=== PATIENT | male | born 1935 | race Hispanic/Latino ===

== ENCOUNTER 2020-12-14 13:39 | Emergency (ER) | payer OTHER ==
[2020-12-14 16:40] LABS: Absolute Lymphocytes (CBC) 0.8 K/uL (0.7-4.9); Basophils % 0.6 % (0-1.3); Hematocrit 47.9 % (39.6-49.0); MPV 9.7 fL (7.6-11.3); RBC Red Blood Cell Count 5.23 M/uL (4.33-5.43)
[2020-12-14 16:59] LABS: Protime INR 1.2
[2020-12-14 17:02] LABS: Albumin 3.4 g/dL (3.4-5.0); Bilirubin Direct 0.1 mg/dL (0-0.2); Bilirubin Total 0.4 mg/dL (0.2-1.0); Protein, Total 7.9 g/dL (6.4-8.2); Troponin (Emerg Dept Use Only) 0.04 ng/mL (0.0-0.045)
--- NOTE | 2020-12-14 17:02 | RAD REPORT ---
EXAM DESCRIPTION: RAD - Chest Single View - 12/14/2020 4:54 pm CLINICAL HISTORY: Cough;COPD COMPARISON: Single-view chest July 2015 TECHNIQUE: AP portable chest image was obtained 12/14/2020 4:54 pm . FINDINGS: Right lung field is clear of acute disease. Overall lung volumes are low. Lung volumes are specially low on the left. No left-sided mass or consolidation. Retrocardiac left base assessment is limited. Left hemidiaphragm is not sharply defined. Small pleural effusion could be present. Lateral left base assessment on portable imaging is limited in the setting of low lung volumes. Overall hear t size is normal. No acute vascular engorgement. Left costophrenic angle blunting could be portable a rtifact, pleural thickening or minimal pleural effusion. No acute bony abnormality seen. No acute aor tic findings suspected. IMPRESSION: Limited portable study without acute cardiopulmonary finding. Left base assessment is limited. Small effusions and minimal infiltrates cannot be excluded.
[2020-12-14 17:03] LABS: Magnesium 2.5 mg/dL (1.8-2.4); Potassium 4.2 mmol/L (3.5-5.1)
[2020-12-14 17:56] LABS: Urine Blood Negative (Negative); Urine Glucose Negative (Negative); Urine Protein 2+ (Negative); Urine Specific Gravity >=1.030 (1.005-1.030); Urine pH 5.5 (5.0-7.0)
[2020-12-14 18:18] LABS: SARS-COV-2 RT PCR NEGATIVE (NEGATIVE)
[2020-12-14 18:26] LABS: Urine Bacteria <20 /HPF (NONE SEEN); Urine Mucus LIGHT /HPF (NONE SEEN); Urine RBC NONE SEEN /HPF (NONE SEEN)
--- NOTE | 2020-12-14 18:36 | EDPHYS ---
Physician Documentation [facility] Name: Carter Jiang Age: 85 yrs Sex: Male : 1935 Arrival Date: 12/14/2020 Time: 13:44 Bed 5 Private MD: ED Physician Jv Miller HPI: 12/14 16:33 This 85 yrs old Male presents to ER via Wheelchair with complaints of fever, rn generalized weakness.. 16:33 The patient reports fever, not measured (subjective). Onset: The symptoms/episode rn began/occurred yesterday. Modifying factors: there are no obvious modifying factors. Associated signs and symptoms: Pertinent positives: chills, cough, runny nose, Pertinent negatives: abdominal pain, altered mental status, diarrhea, headache, hemoptysis, skin rash, swelling, vomiting. Severity of symptoms: At their worst the symptoms were mild in the emergency department the symptoms are unchanged. The patient has experienced similar episodes in the past. The patient has not recently seen a physician. Reports fever, chills, runny nose, cough. Patient states generalized weakness and fatigue. No sick contacts. Patient states "just old age". No sob. No hemoptysis. No chest pain. No abd pain/vomiting/diarrhea/blood in stool .. Historical: - Allergies: 13:52 No Known Allergies; ll1 - PMHx: 13:52 COPD; ll1 - PSHx: 13:52 prostate Sx; ll1 - Immunization history:: Client reports receiving the 2nd dose of the Covid vaccine, Flu vaccine is up to date. - Social history:: Smoking status: Patient denies any tobacco usage or history of. - Family history:: not pertinent. - Hospitalizations: : No recent hospitalization is reported. 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 Exam: 16:33 Constitutional: This is a well developed, well nourished patient who is awake, alert, rn and in no acute distress. Head/Face: Normocephalic, atraumatic. Eyes: Periorbital areas with no swelling, redness, or edema. ENT: MMM Cardiovascular: Regular rate and rhythm. No pulse deficits. Respiratory: No increased work of breathing, no retractions or nasal flaring. No wheezing. Speaking full sentences, laughing. Abdomen/GI: soft, non-tender Skin: Warm, dry MS/ Extremity: Pulses equal, no cyanosis. Neuro: Awake and alert, GCS 15, oriented to person, place, time, and situation. Cranial nerves II-XII grossly intact. Motor strength 4/5 in all extremities. Sensory grossly intact. Cerebellar exam normal. Vital Signs: 13:52 BP 116 / 70; Pulse 71; Resp 17; Temp 99.8; Pulse Ox 97% ; Weight 78.02 kg; Height 5 ft. ll1 3 in. (160.02 cm); Pain 0/10; 17:33 BP 98 / 82; Pulse 53; Resp 15; Pulse Ox 99% on R/A; hb 18:13 BP 164 / 79; Pulse 52; rn 18:27 BP 164 / 79; Pulse 77; Resp 14; Pulse Ox 98% on R/A; bp 19:30 BP 152 / 71; Pulse 54; Resp 18; Pulse Ox 96% ; wh 13:52 Body Mass Index 30.47 (78.02 kg, 160.02 cm) ll1 MDM: 16:13 Patient medically screened. rn 18:31 Differential diagnosis: viral Infection, bacterial infection, URI, bronchitis, rn pneumonia UTI. Data reviewed: vital signs, nurses notes, lab test result(s), radiologic studies, plain films, and as a result, I will discharge patient. Counseling: I had a detailed discussion with the patient and/or guardian regarding: the historical points, exam findings, and any diagnostic results supporting the discharge/admit diagnosis, lab results, radiology results, the need for outpatient follow up, to return to the emergency department if symptoms worsen or persist or if there are any questions or concerns that arise at home. Response to treatment: the patient's symptoms have mildly improved after treatment, and as a result, I will discharge patient. Special discussion: I discussed with the patient/guardian in detail that at this point there is no indication for admission to the hospital. It is understood, however, that if the symptoms persist or worsen the patient needs to return immediately for re-evaluation. ED course: Pt with neg COVID/FLU, no acute findings on CXR, normal CBC, neg procalcitonin, neg UA, will dc home with abx given fever and COPD with reported change in cough. Return precautions given and understood.. 12/14 16:15 Order name: Basic Metabolic Panel; Complete Time: 17:14 bp 12/14 16:15 Order name: CBC with Diff; Complete Time: 17:03 bp 12/14 16:15 Order name: LFT's; Complete Time: 17:14 bp 12/14 16:15 Order name: Magnesium; Complete Time: 17:14 bp 12/14 16:15 Order name: NT PRO-BNP; Complete Time: 17:14 bp 12/14 16:15 Order name: PT-INR; Complete Time: 17:24 bp 12/14 16:15 Order name: Troponin (emerg Dept Use Only); Complete Time: 17:14 bp 12/14 16:20 Order name: Urine Culture rn 12/14 16:20 Order name: Urine Microscopic Only; Complete Time: 18:27 rn 12/14 16:20 Order name: Blood Culture Adult (2) rn 12/14 16:20 Order name: Procalcitonin; Complete Time: 17:24 rn 12/14 17:56 Order name: Urine Dipstick-Ancillary; Complete Time: 18:11 EDMS 12/14 16:14 Order name: XRAY Chest (1 view); Complete Time: 17:03 rn 12/14 16:15 Order name: EKG; Complete Time: 16:16 bp 12/14 16:15 Order name: Cardiac monitoring; Complete Time: 16:41 bp 12/14 16:15 Order name: EKG - Nurse/Tech; Complete Time: 16:40 bp 12/14 16:15 Order name: IV Saline Lock; Complete Time: 16:16 bp 12/14 16:15 Order name: Labs collected and sent; Complete Time: 16:16 bp 12/14 16:15 Order name: O2 Per Protocol; Complete Time: 16:16 bp 12/14 16:15 Order name: O2 Sat Monitoring; Complete Time: 16:16 bp 12/14 16:20 Order name: Urine Dipstick-Ancillary (obtain specimen); Complete Time: 18:43 rn 12/14 18:18 Order name: COVID-19/FLU A+B; Complete Time: 18:27 EDMS Administered Medications: 18:40 Drug: Rocephin (cefTRIAXone) 1 grams Route: IV; Rate: calculated rate; Site: right bp forearm; 19:45 Follow up: Response: No adverse reaction; IV Status: Completed infusion Disposition: 12/14/20 18:35 Discharged to Home. Impression: Fever, unspecified, Chronic obstructive pulmonary disease, unspecified. - Condition is Stable. - Discharge Instructions: Chronic Obstructive Pulmonary Disease, Fever, Adult. - Prescriptions for Augmentin 875- 125 mg Oral Tablet - take 1 tablet by ORAL route every 12 hours for 10 days; 20 tablet. - Medication Reconciliation Form, Thank You Letter, Antibiotic Education, Prescription Opioid Use form. - Follow up: Private Physician; When: As needed; Reason: Recheck today's complaints, Re-evaluation by your physician. - Problem is new. - Symptoms have improved. Signatures: Dispatcher [employer] EDMS Jv Miller MD MD rn Habalo, Winsy, RN DIXIE Sunny Bassett, RN RN Logan Whitman, RN RN ll1 Corrections: (The following items were deleted from the chart) 17:27 16:14 CORONAVIRUS+MR.LAB.BRZ ordered. EDDC EDDC 17:27 16:14 Influenza Screen (A \\T\\ B)+BA.LAB.BRZ ordered. EDDC EDMS 19:46 18:35 12/14/2020 18:35 Discharged to Home. Impression: Fever, unspecified; Chronic wh obstructive pulmonary disease, unspecified. Condition is Stable. Forms are Medication Reconciliation Form, Thank You Letter, Antibiotic Education, Prescription Opioid Use. Follow up: Private Physician; When: As needed; Reason: Recheck today's complaints, Re-evaluation by your physician. Problem is new. Symptoms have improved. rn
--- NOTE | 2020-12-14 18:36 | ER ---
Nurse's Notes [facility] Name: Carter Jiang Age: 85 yrs Sex: Male : 1935 Arrival Date: 12/14/2020 Time: 13:44 Bed 5 Private MD: Diagnosis: Fever, unspecified;Chronic obstructive pulmonary disease, unspecified Presentation: 12/14 13:52 Chief complaint: Patient states: Chills, SOB, weak, tired easily for 1 day. + low grade ll1 fever. No N/V/D. Coronavirus screen: Client denies travel out of the [place] in the last 14 days. congestion, difficulty breathing, runny nose, Client presents with at least one sign or symptom that may indicate coronavirus-19. Standard/surgical mask placed on the client. Ebola Screen: Patient denies travel to an Ebola-affected area in the 21 days before illness onset. Initial Sepsis Screen: Does the patient meet any 2 criteria? No. Patient's initial sepsis screen is negative. Does the patient have a suspected source of infection? No. Patient's initial sepsis screen is negative. Risk Assessment: Do you want to hurt yourself or someone else? Patient reports no desire to harm self or others. Onset of symptoms was December 14, 2020. 13:52 Method Of Arrival: Wheelchair ll1 13:52 Acuity: GRADY 3 ll1 Triage Assessment: 16:15 General: Appears distressed, uncomfortable, Behavior is cooperative, appropriate for bp age, anxious. Pain: Denies pain. EENT: No deficits noted. Neuro: No deficits noted. Cardiovascular: Rhythm is sinus rhythm. Respiratory: Reports shortness of breath Onset: The symptoms/episode began/occurred 3 days, the patient has moderate shortness of breath. GI: No signs and/or symptoms were reported involving the gastrointestinal system. : No signs and/or symptoms were reported regarding the genitourinary system. Derm: No deficits noted. Musculoskeletal: No deficits noted. Historical: - Allergies: 13:52 No Known Allergies; ll1 - PMHx: 13:52 COPD; ll1 - PSHx: 13:52 prostate Sx; ll1 - Immunization history:: Client reports receiving the 2nd dose of the Covid vaccine, Flu vaccine is up to date. - Social history:: Smoking status: Patient denies any tobacco usage or history of. - Family history:: not pertinent. - Hospitalizations: : No recent hospitalization is reported. Screenin:15 Abuse screen: Denies threats or abuse. Denies injuries from another. Nutritional bp screening: No deficits noted. Tuberculosis screening: No symptoms or risk factors identified. Fall Risk None identified. Assessment: 16:15 General: SEE TRIAGE NOTE. Cardiovascular: Rhythm is sinus rhythm. Respiratory: Airway bp is patent Respiratory effort is labored, Breath sounds with rales bilaterally. 17:15 Reassessment: Patient appears in no apparent distress at this time. Patient and/or hb family updated on plan of care and expected duration. Pain level reassessed. Patient is alert, oriented x 3, equal unlabored respirations, skin warm/dry/pink. 18:27 Reassessment: Patient appears in no apparent distress at this time. Patient and/or bp family updated on plan of care and expected duration. Pain level reassessed. Patient is alert, oriented x 3, equal unlabored respirations, skin warm/dry/pink. 19:15 Reassessment: Patient appears in no apparent distress at this time. Patient and/or wh family updated on plan of care and expected duration. Pain level reassessed. Patient is alert, oriented x 3, equal unlabored respirations, skin warm/dry/pink. Vital Signs: 13:52 BP 116 / 70; Pulse 71; Resp 17; Temp 99.8; Pulse Ox 97% ; Weight 78.02 kg; Height 5 ft. ll1 3 in. (160.02 cm); Pain 0/10; 17:33 BP 98 / 82; Pulse 53; Resp 15; Pulse Ox 99% on R/A; hb 18:13 BP 164 / 79; Pulse 52; rn 18:27 BP 164 / 79; Pulse 77; Resp 14; Pulse Ox 98% on R/A; bp 19:30 BP 152 / 71; Pulse 54; Resp 18; Pulse Ox 96% ; wh 13:52 Body Mass Index 30.47 (78.02 kg, 160.02 cm) ll1 ED Course: 13:44 Patient arrived in ED. bp1 13:52 Arm band placed on. ll1 13:55 Triage completed. ll1 16:04 Sunny Bassett, RN is Primary Nurse. bp 16:09 Patient placed in an exam room, on a stretcher. ll1 16:12 Jv Miller MD is Attending Physician. rn 16:15 Patient has correct armband on for positive identification. Bed in low position. Call bp light in reach. Side rails up X2. 16:20 Inserted saline lock: 20 gauge in right forearm, using aseptic technique. Blood bp collected. 16:41 Warm blanket given. Pillow given. nurse monitoring on. Pulse ox on. NIBP on. [facility] 16:41 EKG done, by ED staff, reviewed by Jv Miller MD. [facility] 16:54 XRAY Chest (1 view) In Process Unspecified. EDMS 19:46 No provider procedures requiring assistance completed. IV discontinued, intact, bleeding controlled, No redness/swelling at site. Administered Medications: 18:40 Drug: Rocephin (cefTRIAXone) 1 grams Route: IV; Rate: calculated rate; Site: right bp forearm; 19:45 Follow up: Response: No adverse reaction; IV Status: Completed infusion Outcome: 18:35 Discharge ordered by MD. rn 19:46 Discharged to home via wheelchair, with family. 19:46 Condition: stable 19:46 Discharge instructions given to patient, family, Instructed on discharge instructions, follow up and referral plans. medication usage, POC Demonstrated understanding of instructions, follow-up care, medications, POC Prescriptions given X 1. 19:46 Patient left the ED. Signatures: Dispatcher [employer] EDMS Jv Miller MD MD rn Baxter, Heather, RN RN hb Martinez, Maria [facility] Nasim Gallegos RN RN Sunny Bassett RN RN bp Lewis, Lynsay, RN RN [facility] Karrie Gan bp1 Corrections: (The following items were deleted from the chart) 17:33 17:33 BP 155 / 82; Pulse 53bpm; Resp 15bpm; Pulse Ox 99% RA; hb hb
[2020-12-14] MEDS ORDERED: CEFTRIAXONE/SWI 1gm 1 GM/10 ML SYR ONE (18:59)
[2020-12-14] MEDS ORDERED: NA CHLORIDE 0.9% 100 ML ONE (18:59)
[2020-12-14 19:53] VITALS: TEMP 99.8
[2020-12-14 19:59] VITALS: BP 152/71; O2SAT 96
--- NOTE | 2020-12-16 12:02 | EKG ---
Test Date: 2020-12-14 Test Time: 16:29:24 Line Leader: AMADOU MEASUREMENT RESULTS: Intervals: Rate: 54 GA: 116 QRSD: 98 QT: 406 QTc: 385 [place]: P: GA: 116 QRS: 64 T: 67 INTERPRETIVE STATEMENTS: Sinus bradycardia Anterior infarct, age undetermined Abnormal ECG Compared to ECG 08/03/2015 17:29:07 Myocardial infarct finding now present Sinus rhythm no longer present Electronically Signed On 12-16-20 11:54:37 CDT by Leandro Aguiar
== END 2020-12-14 19:46 | disposition home or self-care (01) ==
LOC: ER 13:39
DX: J44.9 Chronic obstructive pulmonary disease, unspecified (principal); Z20.822 Contact with and (suspected) exposure to COVID-19
CPT/HCPCS: 96365; 93005; 87040 ×2; 87088; 85025; 87086; 80048; 36415; 83735; 85610; 80076; 84484; 84145; 83880; 0240U; 71045; 99285; J0696; 81003; 81015

== ENCOUNTER 2021-12-21 22:11 | Emergency (ER) | payer BC, OTHER ==
[2021-12-21 23:00] LABS: Absolute Lymphocytes (CBC) 0.5 K/uL (0.7-4.9); Hematocrit 48.9 % (39.6-49.0); Lymphocytes % 4.4 % (15.3-44.8); MPV 8.8 fL (7.6-11.3); RBC Red Blood Cell Count 5.31 M/uL (4.33-5.43)
[2021-12-21 23:17] LABS: Protime INR 1.09
[2021-12-21 23:20] LABS: Potassium 3.9 mmol/L (3.5-5.1); Troponin High Sensitivity 49.4 pg/mL (<58.9)
[2021-12-21] MEDS ORDERED: IPRATROPIUM BROM 0.5MG/2.5ML ONE (23:38)
[2021-12-21] MEDS ORDERED: METHYLPREDNISOLONE 125 MG INJ ONE (23:38)
[2021-12-21] MEDS ORDERED: ALBUTEROL 2.5 MG/3 ML NEB SOL ONE (23:38)
[2021-12-21] MEDS ORDERED: ONDANSETRON 4 MG/2 ML VIAL ONE (23:48)
[2021-12-21] MEDS ORDERED: MORPHINE 2 MG/ML SYR ONE (23:48)
[2021-12-21 23:56] LABS: Arterial Blood Carboxyhemoglob 0.5 % (0-1.5); Blood O2 Saturation 99.5 % (92-98.5)
[2021-12-22] MEDS ORDERED: NA CHLORIDE 0.9% 500 ML ONE (01:06)
[2021-12-22 01:15] LABS: Urine Blood 3+ (Negative); Urine Glucose 1+ (Negative); Urine Protein 2+ (Negative); Urine Specific Gravity >=1.030 (1.005-1.030)
[2021-12-22 01:44] LABS: Albumin 3.7 g/dL (3.4-5.0); Bilirubin Direct 0.5 mg/dL (0-0.2); Bilirubin Total 0.8 mg/dL (0.2-1.0); Protein, Total 7.9 g/dL (6.4-8.2)
--- NOTE | 2021-12-22 05:21 | EDPHYS ---
Physician Documentation [facility] Name: Carter Jiang Age: 86 yrs Sex: Male : 1935 Arrival Date: 12/21/2021 Time: 22:15 Bed 16 Private MD: ED Physician Nii Muñoz HPI: 12/21 23:15 This 86 yrs old Male presents to ER via Ambulatory with complaints of mh7 Abdominal Swelling, Breathing Difficulty. 23:15 The patient presents with abdominal pain in the left upper quadrant. Onset: The mh7 symptoms/episode began/occurred this morning, today. 23:15 The symptoms do not radiate. mh7 23:15 Associated signs and symptoms: Pertinent positives: shortness of breath, Pertinent mh7 negatives: nausea, vomiting, and diarrhea, chest pain, constipation, diarrhea, dysuria, fever, headache, hematuria, palpitations, testicular pain, vomiting, vomiting blood. The symptoms are described as intermittent, vague, waxing/waning. Modifying factors: The symptoms are alleviated by nothing, the symptoms are aggravated by nothing. 23:15 Severity of pain: At its worst the pain was moderate today, in the emergency department mh7 the pain is unchanged. Historical: - Allergies: 22:22 No Known Allergies; jb4 - PMHx: 22:22 COPD; jb4 - PSHx: 22:22 prostate; jb4 - Immunization history:: Adult Immunizations up to date. - Social history:: Smoking status: Patient denies any tobacco usage or history of. ROS: 23:15 Constitutional: Negative for fever, chills, and weight loss, Eyes: Negative for injury, mh7 pain, redness, and discharge, ENT: Negative for injury, pain, and discharge, Neck: Negative for injury, pain, and swelling, Cardiovascular: Negative for chest pain, palpitations, and edema, Back: Negative for injury and pain, : Negative for injury, bleeding, discharge, and swelling, MS/Extremity: Negative for injury and deformity, Skin: Negative for injury, rash, and discoloration, Neuro: Negative for headache, weakness, numbness, tingling, and seizure, Psych: Negative for depression, anxiety, suicide ideation, homicidal ideation, and hallucinations, Allergy/Immunology: Negative for hives, rash, and allergies, Endocrine: Negative for neck swelling, polydipsia, polyuria, polyphagia, and marked weight changes, Hematologic/Lymphatic: Negative for swollen nodes, abnormal bleeding, and unusual bruising. Exam: 23:15 Head/Face: Normocephalic, atraumatic. Eyes: Pupils equal round and reactive to light, mh7 extra-ocular motions intact. Lids and lashes normal. Conjunctiva and sclera are non-icteric and not injected. Cornea within normal limits. Periorbital areas with no swelling, redness, or edema. Neck: Trachea midline, no thyromegaly or masses palpated, and no cervical lymphadenopathy. Supple, full range of motion without nuchal rigidity, or vertebral point tenderness. No Meningismus. Chest/axilla: Normal chest wall appearance and motion. Nontender with no deformity. No lesions are appreciated. Cardiovascular: Regular rate and rhythm with a normal S1 and S2. No gallops, murmurs, or rubs. Normal PMI, no JVD. No pulse deficits. 23:15 Back: No spinal tenderness. No costovertebral tenderness. Full range of motion. Skin: Warm, dry with normal turgor. Normal color with no rashes, no lesions, and no evidence of cellulitis. MS/ Extremity: Pulses equal, no cyanosis. Neurovascular intact. Full, normal range of motion. Neuro: Awake and alert, GCS 15, oriented to person, place, time, and situation. Cranial nerves II-XII grossly intact. Motor strength 5/5 in all extremities. Sensory grossly intact. Cerebellar exam normal. Normal gait. Psych: Awake, alert, with orientation to person, place and time. Behavior, mood, and affect are within normal limits. 23:15 Constitutional: The patient appears alert, awake, anxious, uncomfortable. 23:15 Respiratory: mild respiratory distress is noted, Respirations: prolonged exhalation, that is mild, Breath sounds: rhonchi, that are mild, are scattered. 23:15 Abdomen/GI: Inspection: abdomen appears normal, Bowel sounds: normal, in all quadrants, Palpation: moderate abdominal tenderness, in the left upper quadrant, mass, is not appreciated, rebound tenderness, is not appreciated, voluntary guarding, is not appreciated, involuntary guarding, is not appreciated, no appreciated organomegaly, Indicators: McBurney's point is not tender, De La Fuente's sign is negative, Rovsing's sign is negative, Obturator sign is negative, Psoas sign is negative, Liver: no appreciated palpable abnormalities, Hernia: not appreciated. Vital Signs: 22:19 BP 186 / 79; Pulse 63; Resp 28; Temp 97.5; Pulse Ox 98% on R/A; Weight 74.84 kg (R); jb4 Height 5 ft. 3 in. (160.02 cm); Pain 5/10; 12/22 00:00 BP 162 / 78; Pulse 102; Resp 28; Pulse Ox 99% on 50% BiPAP; lp1 01:00 BP 130 / 63; Pulse 77; Resp 25; Pulse Ox 99% on 50% BiPAP; lp1 01:30 BP 140 / 67; Pulse 74; Resp 23; Pulse Ox 98% on 50% BiPAP; lp1 02:15 BP 135 / 67; Pulse 68; Resp 26; Pulse Ox 99% on 2 lpm NC; lp1 03:00 BP 125 / 59; Pulse 66; Resp 14; Pulse Ox 100% on 2 lpm NC; lp1 03:51 BP 137 / 67; Pulse 66; Resp 14; Pulse Ox 98% on 2 lpm NC; lp1 05:00 BP 137 / 69; Pulse 66; Resp 14; Pulse Ox 97% on 2 lpm NC; lp1 06:18 BP 155 / 78; Pulse 68; Resp 22; Temp 98.1(O); Pulse Ox 99% on 2 lpm NC; Pain 0/10; lp1 06/07 22:19 Body Mass Index 29.23 (74.84 kg, 160.02 cm) jb4 MDM: 05:17 Differential diagnosis: bowel obstruction, coronary artery disease, cholecystitis, mh7 Cholelithiasis, diverticulitis, gastritis, gastroesophageal reflux disease, non-specific abd pain, pancreatitis, Peptic Ulcer Disease, Ureterolithiasis, urinary tract infection. Data reviewed: vital signs, nurses notes, lab test result(s), CBC, electrolytes, EKG, radiologic studies, CT scan, plain films, ultrasound. Data interpreted: Pulse oximetry: on room air is 98 %. Interpretation: normal. Counseling: I had a detailed discussion with the patient and/or guardian regarding: the historical points, exam findings, and any diagnostic results supporting the discharge/admit diagnosis, the presence of at least one elevated blood pressure reading (>120/80) during this emergency department visit, lab results, radiology results, the need to transfer to another facility, [facility] does not immediately have the required specialist. Response to treatment: the patient's symptoms have mildly improved after treatment. 05:20 Patient medically screened. [facility] 05:20 ED course: Feels better, NAD, VSS, no focal neurological deficits. Still has 7 intermittent abdominal pain worse with palpation. No SOB, chest pain, vomiting, diarrhea. Discussed test results with pancreatitis and gallstones. Recommended transfer to another hospital since crop consultant GI doctor does not do ERCP procedure. They are agreeable with plan and okay with trying for [facility].. 12/21 22:33 Order name: Basic Metabolic Panel; Complete Time: 23:22 [facility] 12/21 22:33 Order name: CBC with Diff; Complete Time: 23:21 [facility] 12/21 22:33 Order name: Troponin HS; Complete Time: 23:22 [facility] 12/21 22:34 Order name: PT-INR; Complete Time: 23:21 [facility] 12/21 22:34 Order name: Ptt, Activated; Complete Time: 23:21 [facility] 12/21 23:20 Order name: Lipase; Complete Time: 01:05 [facility] 12/21 22:33 Order name: XRAY Chest (1 view) [facility] 12/21 23:21 Order name: COVID-19 SARS RT PCR (Document "Date of Onset" if Symptomatic); Complete [facility] Time: 03:07 12/21 23:21 Order name: Influenza Screen (a \\T\\ B); Complete Time: 03:07 [facility] 12/21 23:24 Order name: CT Abd/Pelvis - Without Contrast [facility] 12/21 23:32 Order name: Arterial Blood Gas; Complete Time: 00:05 [facility] 12/22 01:06 Order name: LFT's; Complete Time: 03:07 [facility] 12/22 01:15 Order name: Urine Dipstick-Ancillary; Complete Time: 03:07 [facility] 12/22 03:15 Order name: Amylase, Serum; Complete Time: 03:50 [facility] 12/21 22:33 Order name: EKG; Complete Time: 22:36 [facility] 12/21 22:33 Order name: Cardiac monitoring; Complete Time: 22:34 [facility] 12/21 22:33 Order name: EKG - Nurse/Tech; Complete Time: 22:50 [facility] 12/21 22:33 Order name: IV Saline Lock; Complete Time: 22:50 [facility] 12/21 22:33 Order name: Labs collected and sent; Complete Time: 22:50 [facility] 12/21 22:33 Order name: O2 Per Protocol; Complete Time: 22:33 [facility] 12/21 22:33 Order name: O2 Sat Monitoring; Complete Time: 22:33 [facility] 12/21 23:25 Order name: Urine Dipstick-Ancillary (obtain specimen); Complete Time: 01:16 [facility] 12/22 03:10 Order name: US Abdomen Limited 7 Administered Medications: 12/21 23:30 Drug: Albuterol 2.5 mg Route: Inhalation; [facility] 23:30 Drug: AtroVENT (ipratropium) Aerosol 0.5 mg Route: Inhalation; 1 23:30 Drug: SOLU-Medrol (methylPrednisoLONE) 125 mg Route: IVP; Site: left forearm; 1 12/22 00:58 Follow up: Response: No adverse reaction [facility] 12/21 23:35 Drug: Albuterol 2.5 mg {Note: in BiPAP.} Route: Inhalation; lp1 23:40 Drug: Albuterol 2.5 mg {Note: in BiPAP.} Route: Inhalation; 1 23:45 Drug: morphine 2 mg Route: IVP; Infused Over: 4 mins; Site: left forearm; 1 12/22 00:58 Follow up: Response: No adverse reaction [facility] 12/21 23:45 Drug: Zofran (Ondansetron) 4 mg Route: IVP; Site: left forearm; lp1 12/22 00:58 Follow up: Response: No adverse reaction lp1 01:00 Drug: NS 0.9% 500 ml Route: IV; Rate: bolus; Site: left forearm; lp1 03:00 Follow up: IV Status: Completed infusion; IV Intake: 500ml 1 Disposition Summary: 12/22/21 05:20 Transfer Ordered Transfer Location: [place] [address] Reason: Higher level of care mh7 Condition: Stable mh7 Problem: new mh7 Symptoms: have improved mh7 Accepting Physician: Dr. Juarez(06/08/22 07:02) lp1 Diagnosis - Acute Pancreatitis, Cholelithiasis [facility] Forms: - Medication Reconciliation Form [facility] - SBAR form [facility] Signatures: Dispatcher [employer] Camila Lechuga RN RN lp1 Sacha Chavis, [employer] [employer]Cla1 Aleksander Corley RN RN jb4 Nii Muñoz MD MD 7 Corrections: (The following items were deleted from the chart) 07:02 05:20 Dr. Juarez [facility] lp1
--- NOTE | 2021-12-22 05:21 | ER ---
Nurse's Notes [facility] Name: Carter Jiang Age: 86 yrs Sex: Male : 1935 Arrival Date: 12/21/2021 Time: 22:15 Bed 16 Private MD: Diagnosis: Acute Pancreatitis, Cholelithiasis Presentation: 12/21 22:19 Chief complaint: Patient's son or daughter states: He has a pulsating pain under his jb4 left breast and it started swelling. It started this morning and got worse. SOB started [employer] REPA[employer]. Coronavirus screen: At this time, the client does not indicate any symptoms associated with coronavirus-19. Ebola Screen: No symptoms or risks identified at this time. Initial Sepsis Screen: Does the patient meet any 2 criteria? RR > 20 per min. Yes Does the patient have a suspected source of infection? Yes: Acute abdominal pain. Risk Assessment: Do you want to hurt yourself or someone else? Patient reports no desire to harm self or others. Onset of symptoms was December 21, 2021. Transition of care: patient was not received from another setting of care. 22:19 Method Of Arrival: Ambulatory jb4 22:19 Acuity: GRADY 2 jb4 Historical: - Allergies: 22:22 No Known Allergies; jb4 - PMHx: 22:22 COPD; jb4 - PSHx: 22:22 prostate; jb4 - Immunization history:: Adult Immunizations up to date. - Social history:: Smoking status: Patient denies any tobacco usage or history of. Screenin:00 Abuse screen: Denies threats or abuse. Denies injuries from another. Nutritional lp1 screening: No deficits noted. Tuberculosis screening: No symptoms or risk factors identified. Fall Risk Total Gonzalez Fall Scale indicates High Risk Score (45 or more points). Fall prevention measures have been instituted. Side Rails Up X 2 Family Present and informed to notify staff if the need to leave the bedside As available patient and family educated on Fall Prevention Program and Strategies. Assessment: 22:50 General: Appears in no apparent distress. Behavior is calm, cooperative. Pain: lp1 Complains of pain in left upper quadrant Pain currently is 5 out of 10 on a pain scale. Quality of pain is described as aching. Neuro: Level of Consciousness is awake, alert, obeys commands, Oriented to person, place, situation. Cardiovascular: Patient's skin is warm and dry. Respiratory: Respiratory effort is even, Breath sounds are diminished in left posterior lower lobe and right posterior lower lobe. GI: Abdomen is non-distended, Bowel sounds present X 4 quads. Abdomen is tender to palpation in left upper quadrant. : No signs and/or symptoms were reported regarding the genitourinary system. EENT: No signs and/or symptoms were reported regarding the EENT system. Derm: Skin is intact, Skin is dry, Skin is normal. Musculoskeletal: No deficits noted. 23:20 Reassessment: Patient reports feeling short of breath, sitting at side of bed, lp1 tachypneic; O2 at 93% on RA, RR 40; Placed on NC at 2L O2; Patient becoming more anxious; Staff Assist called for RT. 23:20 Respiratory: Breath sounds are diminished in left posterior lower lobe. lp1 23:30 Reassessment: RT at bedside to place BiPAP at 100% O2; Dr. Muñoz at bedside. lp1 23:45 Reassessment: Patient appears to be improving, RR 27, O2 at 50% on BiPAP, 100% O2. lp1 06/ 00:30 Reassessment: Patient appears anxious with BiPAP in place, patient educated on keeping lp1 BiPAP in place, at bedside; RR decreased to 24, O2 at 99% on 50% O2 Patient states symptoms have improved. 01:16 Reassessment: Patient appears comfortable at this time, at bedside; aware of need lp1 for CT Patient states feeling better. Patient states symptoms have improved. 01:50 Reassessment: Nurse transported patient to CT via stretcher on NC at 2L O2, tolerating lp1 well. 02:00 Reassessment: Patient is alert, oriented x 3, equal unlabored respirations, skin lp1 warm/dry/pink. Patient returned from CT, tolerating nasal cannula, continued on 2L O2 Patient denies pain at this time. Patient states feeling better. 03:15 Reassessment: Patient appears in no apparent distress at this time. No changes from lp1 previously documented assessment. Aware of waiting for CT results; at bedside. 04:20 Reassessment: Dr. Muñoz at bedside to discuss results and plan of care with patient lp1 and . 05:30 Reassessment: Patient appears in no apparent distress at this time. Awaiting approval lp1 from transfer facility. 06:15 Reassessment: Patient signed consent for transfer, at bedside. lp1 06:27 Reassessment: Report given to DIXIE Jennings for patient transfer to [facility] bed 918. lp1 07:01 Reassessment: [facility] at bedside for transfer. lp1 Vital Signs: 12/21 22:19 BP 186 / 79; Pulse 63; Resp 28; Temp 97.5; Pulse Ox 98% on R/A; Weight 74.84 kg (R); jb4 Height 5 ft. 3 in. (160.02 cm); Pain 5/10; 12/22 00:00 BP 162 / 78; Pulse 102; Resp 28; Pulse Ox 99% on 50% BiPAP; lp1 01:00 BP 130 / 63; Pulse 77; Resp 25; Pulse Ox 99% on 50% BiPAP; lp1 01:30 BP 140 / 67; Pulse 74; Resp 23; Pulse Ox 98% on 50% BiPAP; lp1 02:15 BP 135 / 67; Pulse 68; Resp 26; Pulse Ox 99% on 2 lpm NC; lp1 03:00 BP 125 / 59; Pulse 66; Resp 14; Pulse Ox 100% on 2 lpm NC; lp1 03:51 BP 137 / 67; Pulse 66; Resp 14; Pulse Ox 98% on 2 lpm NC; lp1 05:00 BP 137 / 69; Pulse 66; Resp 14; Pulse Ox 97% on 2 lpm NC; lp1 06:18 BP 155 / 78; Pulse 68; Resp 22; Temp 98.1(O); Pulse Ox 99% on 2 lpm NC; Pain 0/10; lp1 /07 22:19 Body Mass Index 29.23 (74.84 kg, 160.02 cm) jb4 ED Course: 12/21 22:15 Patient arrived in ED. bp1 22:22 Triage completed. jb4 22:22 Arm band placed on right wrist. jb4 22:35 Nii Muñoz MD is Attending Physician. mh7 22:45 Initial lab(s) drawn, by wy, sent to lab. Inserted saline lock: 18 gauge in left jb4 forearm, using aseptic technique. Blood collected. 22:55 XRAY Chest (1 view) In Process Unspecified. EDMS 23:00 Patient has correct armband on for positive identification. Placed in gown. Bed in low lp1 position. Call light in reach. Client placed on continuous cardiac and pulse oximetry monitoring. NIBP monitoring applied. 23:31 Camila Staton, RN is Primary Nurse. lp1 12/22 00:42 COVID swab sent to lab. Flu and/or RSV swab sent to lab. lp1 02:04 CT Abd/Pelvis - Without Contrast In Process Unspecified. EDMS 03:14 No provider procedures requiring assistance completed. lp1 03:45 Notified ED physician of a critical lab result(s). Amylase 267. lp1 03:47 US Abdomen Limited In Process Unspecified. EDMS 04:39 initiated a transfer with Neelam from [facility]. 2 05:[address] Muñoz with Dr. Juarez from [facility]. 2 05:47 administrative approval given by Neelam Ramos/ patient has been accepted to [address]/ Dr. Juarez accepted the patient in transfer/report to be called to [phone]. 07:02 Patient transferred, IV remains in place. lp1 Administered Medications: 12/21 23:30 Drug: Albuterol 2.5 mg Route: Inhalation; lp1 23:30 Drug: AtroVENT (ipratropium) Aerosol 0.5 mg Route: Inhalation; lp1 23:30 Drug: SOLU-Medrol (methylPrednisoLONE) 125 mg Route: IVP; Site: left forearm; lp1 12/22 00:58 Follow up: Response: No adverse reaction lp1 12/21 23:35 Drug: Albuterol 2.5 mg {Note: in BiPAP.} Route: Inhalation; lp1 23:40 Drug: Albuterol 2.5 mg {Note: in BiPAP.} Route: Inhalation; lp1 23:45 Drug: morphine 2 mg Route: IVP; Infused Over: 4 mins; Site: left forearm; lp1 12/22 00:58 Follow up: Response: No adverse reaction lp1 12/21 23:45 Drug: Zofran (Ondansetron) 4 mg Route: IVP; Site: left forearm; lp1 12/22 00:58 Follow up: Response: No adverse reaction lp1 01:00 Drug: NS 0.9% 500 ml Route: IV; Rate: bolus; Site: left forearm; lp1 03:00 Follow up: IV Status: Completed infusion; IV Intake: 500ml lp1 Medication: 12/21 23:57 VIS not applicable for this client. lp1 Intake: 12/22 03:00 IV: 500ml; Total: 500ml. lp1 Output: 07:01 Urine: 450ml (Voided); Total: 450ml. lp1 Outcome: 05:20 ER care complete, transfer ordered by . spenser 06:19 Condition: stable lp1 06:19 Instructed on the need for transfer. 07:02 Transferred by ground EMS to [facility], Transfer form completed. lp1 X-rays sent w/ patient. 07:02 Patient left the ED. lp1 Signatures: Dispatcher [employer] EDMS Camila Staton RN RN lp1 Aleksander Corley RN RN jb4 Rhett Mortensen 2 Karrie Gan Maurice, MD MD 7 Corrections: (The following items were deleted from the chart) 00:00 07 23:20 Reassessment: Patient reports feeling short of breath, sitting at side of lp1 bed, tachypneic; O2 at 93% on RA; Placed on NC at 2L O2; Patient becoming more anxious; Staff Assist called for RT lp1 12/22 01:31 12/21 23:20 Reassessment: Patient reports feeling short of breath, sitting at side of lp1 bed, tachypneic; O2 at 93% on RA, RR 40; Placed on NC at 2L O2; Patient becoming more anxious; Staff Assist called for RT lp1 12/22 06:19 06:18 BP 155 / 78; Pulse 68bpm; Resp 22bpm; Pulse Ox 99% 2 lpm Nasal Cannula; Temp lp1 98.1F Oral; lp1
[2021-12-22 07:28] VITALS: BP 155/78; TEMP 98.1; O2SAT 99
--- NOTE | 2021-12-22 07:53 | EKG ---
Test Date: 2021-12-21 Test Time: 22:36:04 Jukebox Operator: MEASUREMENT RESULTS: Intervals: Rate: 65 CT: 142 QRSD: 96 QT: 406 QTc: 422 [place]: P: 246 CT: 142 QRS: 97 T: 34 INTERPRETIVE STATEMENTS: Unusual P axis, possible ectopic atrial rhythm Rightward axis Septal infarct, age undetermined Abnormal ECG Compared to ECG 12/14/2020 16:29:24 Right-axis deviation now present Sinus bradycardia no longer present Myocardial infarct finding still present Electronically Signed On 12-22-21 07:52:24 CDT by Leandro Aguiar
--- NOTE | 2021-12-22 12:33 | RAD REPORT ---
EXAM DESCRIPTION: XR CHEST 1 VIEW CLINICAL HISTORY: CHEST PAIN COMPARISON: None. TECHNIQUE: XR CHEST 1 VIEW 12/21/2021 10:33 PM CDT FINDINGS: Cardiac silhouette is normal in size. There is platelike atelectasis in the mid left lung. There is no pleural effusion. There is no pneumothorax. There are no acute osseous findings. IMPRESSION: No definite pneumonia. Electronically signed by: Andrez Mckeon MD 12/22/2021 12:21 AM CDT Due to temporary technical issues with the PACS/Fluency reporting system, reports are being signed by the in house radiologist without review as a courtesy to ensure prompt reporting. The interpreting r adiologist is fully responsible for the content of the report.
--- NOTE | 2021-12-22 12:42 | RAD REPORT ---
EXAM DESCRIPTION: Abdomen Pelvis Wo Contrast 12/22/2021 2:17 AM CDT CLINICAL HISTORY: 86 years, Male, LUQ abdominal pain COMPARISON: None. TECHNIQUE: Multiple transaxial tomograms of the abdomen and pelvis were performed from the lung base s to the symphysis pubis 5 mm slice thickness at 5 mm interval reconstruction, without administration of IV and oral contrast. Multiplanar reformats in the sagittal and coronal plane were generated and reviewed. This exam was performed according to our departmental dose-optimization protocol, which includes auto mated exposure control, adjustment of the mA and/or kV according to patient size and/or use of iterat wellington reconstruction technique. FINDINGS: The lack of IV and oral contrast limits evaluation of solid organs, subtle lesions cannot be excluded. The lung bases demonstrate to be clear. Mild elevation of the left hemidiaphragm. Grossly the unopacified liver demonstrated presence of a subcapsular right hepatic lobe cyst measurin g 3.3 x 2.7 cm on image 23. Hepatic calcifications. Otherwise the liver pancreas, spleen and adrenal glands demonstrate to be within normal limits, no significant focal lesions were identified. The gallbladder demonstrated presence of layering high density material corresponding to cholelithias is with no significant inflammatory changes/or biliary duct dilatation. The kidneys demonstrate grossly unremarkable. There is no evidence for nephrolithiasis and/or hydro nephrosis. No focal masses were demonstrated. The ureters displays normal appearance with normal caliber, no hydroureter was seen. Grossly the unopacified stomach, small bowel and large bowel demonstrate to be within normal limits. There is no evidence for bowel dilatation/or free air. The appendix is normal there is minimal divert iculosis within the left site colon. The urinary bladder demonstrate to be within normal limits. The prostate gland is enlarged measuring 6.2 x 5.9 cm. The aorta demonstrate minimal atherosclerotic disease extending into the aortic bifurca tion. There is no retroperitoneal lymphadenopathy. There is no evidence for ascites. The bone win dows demonstrate minimal degenerative changes at L3-S1. IMPRESSION: No evidence for nephrolithiasis and/or hydronephrosis. Cholelithiasis with no significant inflammatory changes. Enlarged prostate gland. Right hepatic lobe cyst. Electronically signed by: Memo Carrizales MD 12/22/2021 2:20 AM CDT Due to temporary technical issues with the PACS/Fluency reporting system, reports are being signed by the in house radiologist without review as a courtesy to ensure prompt reporting. The interpreting r adiologist is fully responsible for the content of the report.
--- NOTE | 2021-12-22 12:47 | RAD REPORT ---
EXAM DESCRIPTION: Abdomen Exam Limited 12/22/2021 3:58 AM CDT CLINICAL HISTORY: 86 years, Male, RUQ COMPARISON: None. TECHNIQUE: Utilizing a curved array transducer, real-time ultrasound evaluation of the abdominal vis cera was performed. Color Doppler imaging was used to assess vascular flow. FINDINGS: The liver demonstrate to be within normal limits. The gallbladder demonstrate the presence of multiple layering echogenic structure with posterior shad owing corresponding to small cholelithiasis. There is mild gallbladder wall thickening. There is no p ericholecystic fluid. There is negative ultrasonographic De La Fuente sign. The common bile duct measures 3.6 mm. No intra or extrahepatic biliary duct dilatation was identified. IMPRESSION: Cholelithiasis and gallbladder wall thickening. Ultrasonographic De La Fuente sign. If concern HIDA scan could be of assistance Electronically signed by: Memo Carrizales MD 12/22/2021 4:00 AM CDT Due to temporary technical issues with the PACS/Fluency reporting system, reports are being signed by the in house radiologist without review as a courtesy to ensure prompt reporting. The interpreting r adiologist is fully responsible for the content of the report.
== END 2021-12-22 07:02 | disposition short-term general hospital (02) ==
LOC: ER 22:11
DX: K85.90 Acute pancreatitis without necrosis or infection, unspecified (principal); K80.20 Calculus of gallbladder without cholecystitis without obstruction; J44.9 Chronic obstructive pulmonary disease, unspecified; Z20.822 Contact with and (suspected) exposure to COVID-19
CPT/HCPCS: 93005; 85025; 80048; 36415; 82150; 85610; 80076; 85730; 81003; 84484; 83690; 87804 ×2; 74176; 71045; 76705; 82805; 94660; U0003; J2270; J7040; J2930; J2405

== ENCOUNTER 2022-09-27 09:24 | Emergency (ER) | payer OTHER ==
--- OUTSIDE RECORDS SUMMARY | 2022-09-27 09:28 | XMS REPORT | Continuity of Care Document ---
:1935 Author Organization [facility] t Address [address] [place] [address]. [address] [place] [address] Care Team Providers Name Role Phone SHARLENE KELLOGG Attending Clinician Unavailable Ann BURNS, Linda Wiley Attending Clinician Sharlene Kellogg MD Attending Clinician Karen BURNS, Sri Attending Clinician Reji BURNS, Eliazar Lopes Attending Clinician Shanna BURNS, Celena Muñoz Attending Clinician Unavailable LINDA DIAZ Attending Clinician Unavailable SRI JONES Admitting Clinician Unavailable Payers Payer Name Policy Type Policy Number Effective Date Expiration Date S dimitry [employer]ET[employer] MEDICARE HMO [id number] 2017 POS 00:00:00 Problems Condition Condition Condition Status Onset Resolution Last Treating Co mments Source Name Details Category Date Date Treatment Clinician Date Abdominal Abdominal Disease [facility] Allergies, Adverse Reactions, Alerts Allergy Allergy Status Severity Reaction(s) Onset Inactive Treating Comm ents Source Name Type Date Date Clinician NO KNOWN Allergy Active [facility] Social History Social Habit Start Date Stop Date Quantity Comments Source History [facility]Med [facility] History [facility] 2021-12-22 2021-12-[address] [facility] Transport Med 00:00:00 00:00:[address] [facility] 2021-12-22 2021-12-[address] [facility] Housing Unable to 00:00:00 00:00:00 Medical Center Pay History [facility] 2021-12-22 2021-12-[address] [facility] Housing Places 00:00:00 00:00:00 Medical Ce nter Lived History [facility] 2021-12-22 2021-12-[address] [facility] Housing Homeless 00:00:00 00:00:00 Medical Center Last Year Tobacco Comment 2021-12-22 2021-12-[address] [facility] 00:[facility]:00 00:00:00 diagnosed with Medical Ce nter COPD Tobacco use and 2021-12-22 2021-12-[address] [facility] exposure 00:00:00 00:00:00 Medical Center History of tobacco 1999-07-[address] [facility] Sex Assigned At [address] [facility] 00:00[facility]00 00[facility]00 Medical Center Smoking Status Start Date Stop Date Source Former smoker 2021-12-22 00:00:00 2021-12-22 00:00:00 [facility] Medications Ordered Filled Start Stop Current Ordering Indication Dosage Frequency Signature Comments Components Source Medication Medication Date Date Medication? Clinician (SIG) Name Name amLODIPine 2022- No 5mg QD Take [address] (NORVASC) 5 6-11 06-11 tablet (5 [facility] MG tablet 00:00: 23:59 mg total) Me dical 00 :00 by mouth Center daily. finasteride Yes 5mg QD Take [address] (PROSCAR) 5 6-10 by mouth Luke s mg tablet 16:50: daily. Medica l 08 [facility] albuterol Yes 1{puff} Inhale [address] HFA 6-10 puff by [facility] (VENTOLIN 16:50: mouth via Med ical HFA) 90 08 inhaler Center mcg/actuati every 6 on inhaler (six) hours as needed for Wheezing. saw Yes 450mg [id number] Take [address] [place] 6-10 [id number] mg by Luke s 160 MG 16:50: 3D mouth 3 Medical capsule 08 (three) Center times daily. omega-3 Yes 1200mg QD Take 1,[address] fatty 6-10 mg by [facility] acids-fish 16:50: mouth Medica l oil 08 daily. Center 340-1,000 mg Cap per capsule ascorbic Yes 500mg QD Take [address] acid, 6-10 mg by [employer] vitamin C, 16:50: mouth Medica l (ascorbic 08 daily. [facility] acid with oneal hips) 500 MG tablet cholecalcif Yes [id number] QD Take [facility] 6-10 10,000 [facility] (VITAMIN 16:50: Units by Medic al D3) 10 mcg 08 mouth Center (400 unit) daily. Tab tablet lactobacill Yes 1{tbl} QD Take [address] us acidoph 6-10 tablet by Luke s & bulgar-S. 16:50: mouth Medic al thermophilu 08 daily. Center s (BACID) 1 billion cell- 250 mg Tab per tablet glucosamine Yes 1{tbl} QD Take [address] -chondroiti 6-10 tablet by Lori es n 500-400 16:50: mouth Medical mg tablet 08 daily. Center aspirin 81 Yes 81mg QD Take [address] MG chewable 6-10 by mouth Luke s tablet 16:50: daily. Medical 08 Center cyanocobala Yes 100ug QD Take [address] min, 6-10 mcg by [facility] vitamin 16:50: mouth Medical B-12, 08 daily. [facility] (vitamin B-12) 100 MCG tablet cholecalcif 2021- No 1000U QD Take 1,[address] [facility], 6-10 06-10 Units by [employer] vitamin D3, 13:38: 00:00 mouth Medi francesca 25 mcg 46 :00 daily. [facility] (1,000 unit) capsule predniSONE 2021- No 10mg Take [address] (DELTASONE) 6-10 06-10 by mouth Lori es 10 MG 13:38: 00:00 daily as Medical tablet 24 :00 needed. Center Vital Signs Vital Name Observation Time Observation Value Comments Source HEIGHT 2021-12-22 10:00:00 160 cm WEIGHT 2021-12-22 10:00:00 71.124 kg HEIGHT 2021-12-22 10:00:00 160 cm WEIGHT 2021-12-22 10:00:00 71.124 kg HEIGHT 2021-12-22 10:00:00 160 cm WEIGHT 2021-12-22 10:00:00 71.124 kg Systolic blood 2021-12-24 10:34:00 135 mm[Hg] [facility] Diastolic blood 2021-12-24 10:34:00 60 mm[Hg] [facility] Heart rate 2021-12-24 10:34:00 53 /min [facility] Body temperature 2021-12-24 10:34:00 36 Shnaa [facility] Respiratory rate 2021-12-24 10:34:00 18 /min [facility] Oxygen saturation in 2021-12-24 10:34:00 96 /min [facility] Arterial blood by Medical Ce nter Pulse oximetry Body height 2021-12-22 10:00:00 160 cm [facility] Body weight 2021-12-22 10:00:00 71.124 kg [facility] BMI 2021-12-22 10:00:00 27.78 kg/m2 [facility] Procedures Procedure Date / Time Performing Clinician Source Performed CBC W/PLT COUNT & AUTO 2021-12-24 14:12:00 Valdez, [facility] COMPREHENSIVE METABOLIC 2021-12-24 14:12:00 Valdez, [facility] CBC W/PLT COUNT & AUTO 2021-12-24 14:12:00 Valdez, [facility] POCT-GLUCOSE METER 2021-12-24 10:36:00 Valdez, [place] [facility] POCT-GLUCOSE METER 2021-12-24 07:00:00 Valdez, [place] [facility] POCT-GLUCOSE METER 2021-12-23 20:16:00 Valdez, [place] [facility] REPORT OF PROCEDURE - 2021-12-23 15:16:29 Eliazar Mendoza [facility], I [facility] ENDOSCOPY [facility] POCT-GLUCOSE METER 2021-12-23 12:38:00 Sharlene Kellogg [facility] [place] ERCP 2021-12-23 10:48:[address] [facility] ERCP, WITH BALLOON SWEEP 2021-12-23 10:13:00 Mendoza, [facility] OF BILE DUCTS [facility] PROCEDURE W/ C-ARM 2021-12-23 10:13:00 Reji [facility] ERCP, WITH CHOLANGIOSCOPY 2021-12-23 10:13:00 Reji [facility] ERCP, WITH SPHINCTEROTOMY 2021-12-23 10:13:00 Mendoza [facility] COMPREHENSIVE METABOLIC 2021-12-23 05:21:[address] [facility] LIPASE 2021-12-23 05:21:00 [facility] HEMOGLOBIN A1C 2021-12-23 05:21:00 [facility] CBC (HEMOGRAM ONLY) 2021-12-23 05:21:[address] [facility] POCT-GLUCOSE METER 2021-12-22 21:52:00 Ann [facility] POCT-GLUCOSE METER 2021-12-22 18:04:00 [facility] XR CHEST 1 VIEW PORTABLE 2021-12-22 17:19:[address] Sri Jones [facility] SARS-COV2/RT-PCR ([facility] & 2021-12-22 14:19:00 Jorge Berman [facility] REF LABS) [facility] POCT-GLUCOSE METER 2021-12-22 08:24:00 [facility] Plan of Care Planned Activity Planned Date Details Comments Source Future Scheduled 2022-12-[address] [facility] Test 00:00:00 Counseling and Medical Cente r Screening (12+) [code = Tobacco Cessation Counseling and Screening (12+)] Future Scheduled 2022-07-[address] [facility] Test 00:00:00 (12+) [code = Medical Center DEPRESSION SCREENING (12+)] Future Scheduled 2022-07-17 FALLS RISK SCREENING [facility] Test 00:00:00 [code = FALLS RISK Medical C enter SCREENING] Future Scheduled 2022-03-17 INFLUENZA VACCINE (#1) [facility] 00:00:00 [code = INFLUENZA Medical Ce nter VACCINE (#1)] Future Scheduled 1994-05-[address] [facility] Test 00:00:00 WELLNESS (YEAR 2 or Medical Center FIRST YEAR if no IPPE) [code = MEDICARE ANNUAL WELLNESS (YEAR 2 or FIRST YEAR if no IPPE)] Future Scheduled 1985-11-21 SHINGLES VACCINES ([address] [facility] Test 00:00:00 of 2) [code = SHINGLES Medic al Center VACCINES (1 of 2)] Future Scheduled 1954-11-21 DTAP/TDAP/TD VACCINES [facility] Test 00:00:00 (1 - Tdap) [code = Medical C enter DTAP/TDAP/TD VACCINES (1 - Tdap)] Future Scheduled 1941-11-21 PNEUMOCOCCAL 65+ YRS [facility] Test 00:00:00 (1 - PCV) [code = Medical Ce nter PNEUMOCOCCAL 65+ YRS (1 - PCV)] Future Scheduled 1936-05-24 COVID-19 VACCINE (#1) [facility] Test 00:00:00 [code = COVID-[address] VACCINE (#1)] Encounters Start End Encounter Admission Attending Care Care Encounter Source Date/Time Date/Time Type Type Clinicians Facility Department ID 2021-12-22 2021-12-24 Inpatient ER [facility] [id number] [facility] 08:11:00 16:49:00 2021-12-22 2021-12-24 Hospital Linda Diaz [facility] [id number] [facility] 08:11:00 16:49:00 Encounter Sharlene Kellogg [facility] 2021-12-23 2021-12-23 Surgery Reji [facility] [id number] 10:00:00 11:30:00 [facility] 2021-12-23 2021-12-23 Anesthesia Shanna, [facility] [id number] 10:18:00 11:27:00 Event [facility] 2021-12-22 2021-12-22 Outpatient BC BCNilesh [id number] [facility] 08:11:00 23:59:00 [facility] 2021-12-22 2021-12-22 Travel [facility] [id number] [facility] 00:[facility]00 00:00:00 [facility] Results Test Description Test Time Test Comments Results Result Comments Source COMPREHENSIVE METABOLIC PANEL 2021-12-24 14:42:08 Test Item Value Reference Range Interpretation Comme nts TOTAL PROTEIN (BEAKER) 6.6 gm/dL 6.0-8.3 (test code = 770) ALBUMIN (BEAKER) (test code 3.2 g/dL 3.5-5.0 L = 1145) ALKALINE PHOSPHATASE 59 U/L 40-150 (BEAKER) (test code = 346) BILIRUBIN TOTAL (BEAKER) 0.6 mg/dL 0.2-1.2 (test code = 377) SODIUM (BEAKER) (test code 139 meq/L 136-145 = 381) POTASSIUM (BEAKER) (test 3.5 meq/L 3.5-5.1 code = 379) CHLORIDE (BEAKER) (test 105 meq/L 98-107 code = 382) CO2 (BEAKER) (test code = 27 meq/L 22-29 355) BLOOD UREA NITROGEN 10 mg/dL 7-21 (BEAKER) (test code = 354) CREATININE (BEAKER) (test 0.89 mg/dL 0.57-1.25 code = 358) GLUCOSE RANDOM (BEAKER) 115 mg/dL 70-105 H (test code = 652) CALCIUM (BEAKER) (test code 8.7 mg/dL 8.4-10.2 = 697) AST (SGOT) (BEAKER) (test 28 U/L 5-34 code = 353) ALT (SGPT) (BEAKER) (test 75 U/L 6-55 H code = 347) EGFR (BEAKER) (test code = 81 mL/min/1.73 sq m ESTIMATED GFR IS NOT 1092) ACCURATE CRE ATININE CLEARANCE IN [place] EDICTING GLOMERULAR FILT RATION RATE. ESTIMATED GFR IS NOT APPLICABLE FOR DIALYSIS PATIENTS. Knitting Machine Tender ID - CARLO MCBC W/PLT COUNT & AUTO [id number] 14:23:26 Test Item Value Reference Range Interpretation Comments WHITE BLOOD CELL COUNT (BEAKER) 6.7 K/ L 3.5-10.5 (test code = 775) RED BLOOD CELL COUNT (BEAKER) 5.01 M/ L 4.63-6.08 (test code = 761) HEMOGLOBIN (BEAKER) (test code = 15.1 GM/DL 13.7-17.5 410) HEMATOCRIT (BEAKER) (test code = 47.3 % 40.1-51.0 411) MEAN CORPUSCULAR VOLUME (BEAKER) 94.4 fL 79.0-92.2 H (test code = 753) MEAN CORPUSCULAR HEMOGLOBIN 30.1 pg 25.7-32.2 (BEAKER) (test code = 751) MEAN CORPUSCULAR HEMOGLOBIN CONC 31.9 GM/DL 32.3-36.5 L (BEAKER) (test code = 752) RED CELL DISTRIBUTION WIDTH 14.6 % 11.6-14.4 H (BEAKER) (test code = 412) PLATELET COUNT (BEAKER) (test 130 K/CU MM 150-450 L code = 756) MEAN PLATELET VOLUME (BEAKER) 10.9 fL 9.4-12.4 (test code = 754) NUCLEATED RED BLOOD CELLS 0 /100 WBC 0-0 (BEAKER) (test code = 413) NEUTROPHILS RELATIVE PERCENT 78 % (BEAKER) (test code = 429) LYMPHOCYTES RELATIVE PERCENT 10 % (BEAKER) (test code = 430) MONOCYTES RELATIVE PERCENT 10 % (BEAKER) (test code = 431) EOSINOPHILS RELATIVE PERCENT 0 % (BEAKER) (test code = 432) BASOPHILS RELATIVE PERCENT 0 % (BEAKER) (test code = 437) NEUTROPHILS ABSOLUTE COUNT 5.23 K/ L 1.78-5.38 (BEAKER) (test code = 670) LYMPHOCYTES ABSOLUTE COUNT 0.67 K/ L 1.32-3.57 L (BEAKER) (test code = 414) MONOCYTES ABSOLUTE COUNT (BEAKER) 0.69 K/ L 0.30-0.82 (test code = 415) EOSINOPHILS ABSOLUTE COUNT 0.02 K/ L 0.04-0.54 L (BEAKER) (test code = 416) BASOPHILS ABSOLUTE COUNT (BEAKER) 0.01 K/ L 0.01-0.08 (test code = 417) IMMATURE GRANULOCYTES-RELATIVE 1 % 0-1 PERCENT (BEAKER) (test code = 2801) POC-Glucose [id number] 10:48:58 Test Item Value Reference Range Interpretation Comments POC-Glucose Meter (test 115 mg/dL 70-110 H : TE STED AT [facility] code = 1538) 67[address] [facility], 770 30: Knitting Machine Tender/Techni mariana ID = [id number] for QUEEN MENDOZA Lab Interpretation (test Abnormal code = 62275-0) [facility] [id number] 10:48:58 Test Item Value Reference Range Interpretation Comments POC-GLUCOSE METER 115 mg/dL 70-110 H : TESTED A T [facility] 6720 (BEAKER) (test code = [facility], 153) [address]: Knitting Machine Tender/Techni mairana ID = [id number] for QUEEN HENRY POCT-GLUCOSE [id number] 07:14:19 Test Item Value Reference Range Interpretation Comments POC-GLUCOSE METER 104 mg/dL 70-110 : TESTED A T [facility] 6720 (BEAKER) (test code = [facility], 153) 21831: Knitting Machine Tender/Techni mariana ID = [id number] for QUEEN HENRY POCT-GLUCOSE [id number] 20:31:26 Test Item Value Reference Range Interpretation Comments POC-GLUCOSE METER 115 mg/dL 70-110 H : TESTED A T [facility] 6720 (BEAKER) (test code = [facility], 1538) 04683: Knitting Machine Tender/Techni mariana ID = [id number] for [place] LMORE, LUIS POCT-GLUCOSE [id number] 12:49:01 Test Item Value Reference Range Interpretation Comments POC-GLUCOSE METER 105 mg/dL 70-110 : TESTED A T [facility] 6720 (BEAKER) (test code = [facility], 1538) 46105: Knitting Machine Tender/Techni mariana ID = [id number] for BELLA MELENDREZ TTE [place], [id number] 10:48:00Reason for exam:->Pancreatitis LA [facility] CENTERName: MERY LOMBARDO : 1935 Sex: MAn imaging unit was utilized for this procedure. No radiologist interpretation was requested. Refer to the EMR for findings. Refer to PACS for any patient radiation dose information.HEMOGLOBIN [id number] 10:28:34 Test Item Value Reference Range Interpretation Comments HEMOGLOBIN A1C 6.0 % See_Comment H [Automated m essage] ELECTROPHORESIS (BEAKER) The system which (test code = 3811) generated this result transmitted ref erence range: <=5.6%. The reference range was not used to int erpret this result as normal/abnormal . "The A1c is measured using a NGSP-certified method. HbA1c value equal to or greater than 6.5% as thediagnosis cutoff for diabetes. An HbA1c value of 5.7- 6.4% indicates increased risk for diabetes (prediabetes)."Knitting Machine Tender ID - ADM [id number] 06:31:07 Test Item Value Reference Range Interpretation Comments LIPASE (BEAKER) (test code = 749) 63 U/L 8-78 Knitting Machine Tender ID - PIAYA LCOMPREHENSIVE METABOLIC [id number] 06:31:05 Test Item Value Reference Range Interpretation Comments TOTAL PROTEIN 6.0 gm/dL 6.0-8.3 (BEAKER) (test code = 770) ALBUMIN (BEAKER) 3.1 g/dL 3.5-5.0 L (test code = 1145) ALKALINE PHOSPHATASE 58 U/L 40-150 (BEAKER) (test code = 346) BILIRUBIN TOTAL 0.9 mg/dL 0.2-1.2 (BEAKER) (test code = 377) SODIUM (BEAKER) (test 140 meq/L 136-145 code = 381) POTASSIUM (BEAKER) 4.1 meq/L 3.5-5.1 (test code = 379) CHLORIDE (BEAKER) 109 meq/L 98-107 H (test code = 382) CO2 (BEAKER) (test 25 meq/L 22-29 code = 355) BLOOD UREA NITROGEN 12 mg/dL 7-21 (BEAKER) (test code = 354) CREATININE (BEAKER) 0.79 mg/dL 0.57-1.25 (test code = 358) GLUCOSE RANDOM 120 mg/dL 70-105 H (BEAKER) (test code = 652) CALCIUM (BEAKER) 8.4 mg/dL 8.4-10.2 (test code = 697) AST (SGOT) (BEAKER) 60 U/L 5-34 H (test code = 353) ALT (SGPT) (BEAKER) 121 U/L 6-55 H (test code = 347) EGFR (BEAKER) (test 93 mL/min/1.73 ESTIMA MARIKA GFR IS code = 1092) sq m NOT ACCURATE CREATININE CLEARANCE IN PREDICTING GLOMERULAR FILTRATION RATE . ESTIMATED GFR I S NOT APPLICABLE FOR DIALYSIS PATIEN TS. Knitting Machine Tender ID - PIAYA LCBC (HEMOGRAM ONLY)2021-12-23 05:50:39 Test Item Value Reference Range Interpretation Comments WHITE BLOOD CELL COUNT (BEAKER) 12.6 K/ L 3.5-10.5 H (test code = 775) RED BLOOD CELL COUNT (BEAKER) 4.58 M/ L 4.63-6.08 L (test code = 761) HEMOGLOBIN (BEAKER) (test code = 14.1 GM/DL 13.7-17.5 410) HEMATOCRIT (BEAKER) (test code = 42.8 % 40.1-51.0 411) MEAN CORPUSCULAR VOLUME (BEAKER) 93.4 fL 79.0-92.2 H (test code = 753) MEAN CORPUSCULAR HEMOGLOBIN 30.8 pg 25.7-32.2 (BEAKER) (test code = 751) MEAN CORPUSCULAR HEMOGLOBIN CONC 32.9 GM/DL 32.3-36.5 (BEAKER) (test code = 752) RED CELL DISTRIBUTION WIDTH 14.7 % 11.6-14.4 H (BEAKER) (test code = 412) PLATELET COUNT (BEAKER) (test 128 K/CU MM 150-450 L code = 756) MEAN PLATELET VOLUME (BEAKER) 10.8 fL 9.4-12.4 (test code = 754) NUCLEATED RED BLOOD CELLS 0 /100 WBC 0-0 (BEAKER) (test code = 413) RAD, CHEST, 1 VIEW, NON [id number] 03:58:00Reason for exam:->sobShould this be performed at the bedside?->Yes [facility] : 1935 Sex: MFINAL REPORT RAD, CHEST, 1 VIEW, NON DEPT INDICATION: sob COMPARISON: None available FINDINGS: Portable frontal view of the chest. IMPRESSION: Support Lines: None. Lungs and pleura: Discoid atelectasis in the left lateral lung with elevation left hemidiaphragm. Coarse interstitial hazy airspace opacities in the bilateral lungs may represent interstitial pulmonary fibrosis. No large pleural effusion or pneumothorax. No pneumothorax.Heart and mediastinum: Stable contours. Stable surgical changes.Additional findings: None. Signed: Indy Kim Verified Date/Time: 12/23/2021 03:58:37 SARS-CoV2/RT-PCR (Symptomatic ONLY)2021-12-23 01:37:11 Test Item Value Reference Range Interpretation Comments SARS-COV2/RT-PCR (test Negative Negative code = 45708-3) YOUNG (test code = YOUNG) Negative result for this test determines that SARS-CoV-2 RNA was not present in the specimen above the Limit of Detection (LOD). However, Negative results do not preclude SARS-CoV-2 infection and should not be used as the sole basis for treatment or patient management decisions. Negative results must be combined with clinical observations, patient history, and epidemiological information. A false negative result may occur if a specimen is improperly collected, transported, or handled. A false negative result should be considered if patient's recent exposures or clinical presentation indicate that COVID-19 (SARS-CoV-2) is likely and diagnostic tests for other causes of illness are negative. Re-testing should be considered in cases of suspected false negatives. The limit of detection for this assay is 100 copies/mL. This SARS-CoV-2 test is a real-time RT_PCR test intended for the qualitative detection of nucleic acid from SARS-CoV-2 in a nasopharyngeal swab specimen collected from individuals suspected of COVID-19 by their healthcare provider. This test has not been Food and Drug Administration (FDA) cleared or approved. This is a modified version of an approved Emergency Use Authorization (EUA) and is in the process of review by the FDA. Once authorized by the FDA, the issued EUA will be effective until the declaration that circumstances exist justifying the authorization of the emergency use of in vitro diagnostic tests for detection and/or diagnosis of COVID-19 is terminated under Section 564(b)(2) of the Act or the EUA is revoked under Section 564(g) of the Act. Testing was performed using the Quinones SARS-CoV-2 assay. Fact Sheet for Healthcare Providers:https://www.nilesh gomez/radha/RT SARS-CoV-2 HCP Fact Sheet 51-101673.pdf Fact Sheet for Healthcare Patients:https://www.allyssa monte.quinones/radha/RT SARS-CoV-2 Patient Fact Sheet EN 51-998120E5.pdf Lab Interpretation Normal (test code = 32038-4) [facility] & REF LABS)2021-12-23 01:37:11 Test Item Value Reference Range Interpretation Comments SARS-COV2/RT-PCR (test code = Negative Negative 1125152) Negative result for this test determines that SARS-CoV-2 RNA was not present in the specimen above the Limit of Detection (LOD). However, Negative results do not preclude SARS-CoV-2 infection and should not be used as the sole basis for treatment or patient management decisions. Negative results must be combined with clinical observations, patient history, and epidemiological information. A false negative result may occur if a specimen is improperly collected, transported, or handled. A false negative result should be considered if patient's recent exposures or clinical presentation indicate that COVID-19 (SARS-CoV-2) is likely and diagnostic tests for other causes of illness are negative. Re-testing should be considered in cases of suspected false negatives.The limit of detection for this assay is 100 copies/mL.This SARS-CoV-2 test is a real-time RT_PCR test intended for the qualitative detection of nucleic acid from SARS-CoV-2 in a nasopharyngeal swab specimen collected from individuals suspected of COVID-19 by their healthcare provider.This test has not been Food and Drug Administration (FDA) cleared or approved. This is a modified version of an approved Emergency Use Authorization (EUA) and is in the process of review by the FDA. Once authorized by the FDA, the issued EUA will be effective until the declaration that circumstances exist justifying the authorization of the emergency use of in vitro diagnostic tests for detection and/or diagnosis of COVID-19 is terminated under Section 564(b)(2) of the Act or the EUA is revoked under Section 564(g) of the Act.Testing was performed using t [employer] SARS-CoV-2 assay.Fact Sheet for Healthcare Providers:https://www.molecular.quinones/radha/RT SARS-CoV-2 HCP Fact Sheet 51- 826770.pdfFact Sheet for Healthcare Patients:https://www.molecular.quinones/radha/RT SARS-CoV-2 Patient Fact Sheet EN 51-600171G5.pdfPOCT-GLUCOSE [id number] 22:05:09 Test Item Value Reference Range Interpretation Comments POC-GLUCOSE METER 121 mg/dL 70-110 H : TESTED A T [facility] 6720 (ZULEIKA) (test code = TOMMIE CONN ID, 1538) [address]98: Knitting Machine Tender/Techni mariana ID = [id number] for JIMMIE DESOUZA POCT-GLUCOSE [id number] 18:16:06 Test Item Value Reference Range Interpretation Comments POC-GLUCOSE METER 148 mg/dL 70-110 H : TESTED A T [facility] 6720 (GENELINK) (test code = [facility], 1538) 08234: Knitting Machine Tender/Techni mariana ID = [id number] for BELLA MELENDREZ TTWarren POCT-GLUCOSE [id number] 08:38:21 Test Item Value Reference Range Interpretation Comments POC-GLUCOSE METER 182 mg/dL 70-110 H : TESTED A T [facility] 6720 (GENELINK) (test code = [facility], 1538) 40530: Knitting Machine Tender/Techni mariana ID = [id number] for MELENDREZ, BELLA TTE
[2022-09-27] MEDS ORDERED: ALBUTEROL 2.5 MG/3 ML NEB SOL ONE (09:53)
[2022-09-27] MEDS ORDERED: IPRATROPIUM BROM 0.5MG/2.5ML ONE (09:53)
[2022-09-27 10:10] LABS: Absolute Lymphocytes (CBC) 1.8 K/uL (0.7-4.9); Hematocrit 45.6 % (39.6-49.0); Lymphocytes % 23.9 % (15.3-44.8); MCV 91.9 fL (80-100); MPV 8.2 fL (7.6-11.3); RBC Red Blood Cell Count 4.96 M/uL (4.33-5.43)
[2022-09-27 10:26] LABS: Albumin 3.4 g/dL (3.4-5.0); Bilirubin Total 0.4 mg/dL (0.2-1.0); Potassium 3.7 mmol/L (3.5-5.1); Protein, Total 7.6 g/dL (6.4-8.2)
[2022-09-27 10:38] LABS: Troponin High Sensitivity 95.2 pg/mL (<58.9)
--- NOTE | 2022-09-27 11:17 | RAD REPORT ---
EXAM DESCRIPTION: CT - Chest For Pe Angio - 09/27/2022 10:47 am CLINICAL HISTORY: Chest pain. CHEST PAIN COMPARISON: THORAX WO CONTRAST dated 07/02/2015 TECHNIQUE: CT angiogram of the pulmonary arteries was performed with MIP. All CT scans are performed using dose optimization technique as appropriate and may include automated exposure control or mA/KV adjustment according to patient size. FINDINGS: No evidence of pulmonary thromboembolism. No acute aortic finding demonstrated. Linear atelectasis is present in both lung bases. The lungs are clear of acute infiltrate. No significant pericardial or pleural fluid. No concerning bony finding. Cholelithiasis. IMPRESSION: No evidence of pulmonary thromboembolism. Mild atelectasis in both lung bases without focal infiltrate. Cholelithiasis.
[2022-09-27] MEDS ORDERED: ENOXAPARIN 80 MG/0.8 ML SQ ONE (11:28)
[2022-09-27] MEDS ORDERED: ASPIRIN 81 MG CHEWABLE TABLET ONE (11:28)
--- NOTE | 2022-09-27 12:18 | EDPHYS ---
Physician Documentation [facility] Name: Carter Jiang Age: 86 yrs Sex: Male : 1935 Arrival Date: 09/27/2022 Time: 09:28 Bed 4 Private MD: Diana Sandoval C ED Physician Phoenix Rey HPI: 09/27 09:44 This 86 yrs old Male presents to ER via Ambulatory with complaints of Chest bs3 Pain. 09:44 86-year-old male history of COPD former smoker, history of pancreatitis from gallstones bs3 managed medically presents with left-sided chest pain sharp in the lower anterior region nonradiating without associated symptoms it woke him up from sleep this morning has been intermittent since then a patch was applied which did not seem to help in addition on review of systems he had a fall while fishing several weeks ago and had left shoulder pain and has pain with range of motion of the shoulder denies any numbness tingling or weakness of extremities the chest pain does not radiate anywhere no associated nausea vomiting or diaphoresis nothing seems to make it better or worse no leg swelling or anything else bothering him he was given his breathing treatment this morning which seemed to help. Historical: - Allergies: 09:34 No Known Drug Allergies; hb - PMHx: 09:34 COPD; hb - PSHx: 09:34 prostate; hb - Immunization history:: Adult Immunizations up to date. - Social history:: Smoking status: Patient/guardian denies using tobacco. ROS: 09:44 Constitutional: Negative for fever, chills bs3 09:44 All other systems are negative. Exam: 09:44 Constitutional: This is a well developed, well nourished patient who is awake, alert, bs3 and in no acute distress. Head/Face: Normocephalic, atraumatic. Eyes: Pupils equal round and reactive to light, extra-ocular motions intact. Lids and lashes normal. ENT: mmm, no posterior phyarngeal erythema Neck: Trachea midline, no thyromegaly, no neck stiffness Chest/axilla: Normal chest wall appearance and motion. Nontender with no deformity. No lesions are appreciated. Cardiovascular: bradycardic, normal pulse b/l, no murmur Respiratory: slight inc wob, slight expiratory wheezing and crackles in left base Abdomen/GI: Soft, non-tender, no rebound or guarding Skin: Warm, dry with normal turgor. Normal color with no rashes, no lesions, and no evidence of cellulitis. MS/ Extremity: decreased ROM of left shoudler with pain with ROM of left shoulder Neuro: Awake and alert, GCS 15, oriented to person, place, time, and situation. Cranial nerves II-XII grossly intact. Motor strength 5/5 in all extremities. Sensory grossly intact. 10:10 EKG sinus bradycardia at [address] elevations or depressions his QTc is 409 his EKG is bs3 not significantly changed from 12/21/2021 Vital Signs: 09:33 BP 139 / 82; Pulse 52; Resp 18; Temp 97.3(TE); Pulse Ox 97% on R/A; Weight 74.84 kg; hb Height 5 ft. 5 in. ; Pain 10/10; 10:32 BP 147 / 69; Pulse 55; Resp 17; Pulse Ox 98% on R/A; ll1 11:06 BP 142 / 63; Pulse 52; Resp 15; Pulse Ox 95% on R/A; ld1 11:28 BP 142 / 63; Pulse 57; Resp 17; Pulse Ox 98% on R/A; ld1 11:32 BP 142 / 63; Pulse 52; Pulse Ox 96% ; ll1 12:17 BP 137 / 63; Pulse 54; Resp 18; Pulse Ox 98% on R/A; ld1 09:33 Body Mass Index 27.46 (74.84 kg, 165.1 cm) hb 09:33 Pain Scale: Adult hb MDM: 09:32 Patient medically screened. bs3 09:44 Differential diagnosis: acute myocardial infarction, acute pericarditis, coronary bs3 artery disease chest wall pain, congestive heart failure cholecystitis, gastroesophageal reflux disease (GERD), pancreatitis, pneumonia, pneumothorax, pulmonary embolus. 09:44 ED course: Will rule out acute coronary syndrome with single troponin given duration of bs3 symptoms will get x-ray to evaluate for pneumonia pneumothorax he has low risk for pulmonary embolism but his pain is sharp in nature will get a D-dimer we will trial a DuoNeb although he feels like he does not his COPD we will get a lipase to evaluate for atypical presentation of pancreatitis as the pain seems more in the chest than in the epigastric region. 11:16 ED course: D-dimer and troponin are elevated we will hold off on aspirin until CTA bs3 performed if positive will defer aspirin as the troponin is likely demand mediated. 11:26 Data reviewed: vital signs, nurses notes. ED course: Recommended admission given the bs3 elevated troponin patient really did not want to stay his family was at bedside try to convince him but he would not stay he was agreeable to a repeat troponin will discuss after repeat troponin. 12:11 ED course: Second troponin not significantly changed from prior still recommended bs3 admission given his age risk factors however he refused advised NSAID baby aspirin return precaution. 12:11 ED course: Daughter at bedside discussed with patient she notes that she cannot make bs3 and stay return precautions given instructed to follow-up with Dr. Sandoval tomorrow. 12:18 ED course: pt remained symptoms free here. bs3 09/27 09:43 Order name: EKG; Complete Time: 09:44 bs3 09/27 09:43 Order name: Cardiac monitoring; Complete Time: 09:45 bs3 09/27 09:43 Order name: EKG - Nurse/Tech; Complete Time: 09:45 bs3 09/27 09:43 Order name: O2 Per Protocol; Complete Time: 09:45 bs3 09/27 09:43 Order name: O2 Sat Monitoring; Complete Time: 09:45 bs3 09/27 09:43 Order name: IV Saline Lock; Complete Time: 09:57 bs3 09/27 09:43 Order name: Labs collected and sent; Complete Time: 09:57 bs3 09/27 09:43 Order name: D-Dimer; Complete Time: 10:21 bs3 09/27 09:43 Order name: CBC with Diff; Complete Time: 10:21 bs3 09/27 09:43 Order name: XRAY Chest (1 view) bs09/27 09:43 Order name: Shoulder Left (2 View) XRAY bs09/27 09:43 Order name: Troponin HS; Complete Time: 11:08 3 09/27 09:44 Order name: CMP; Complete Time: 11:08 3 09/27 09:43 Order name: NT PRO-BNP; Complete Time: 11:08 3 09/27 09:43 Order name: COVID-19 SARS RT PCR; Complete Time: 11:08 09/27 09:44 Order name: Lipase; Complete Time: 11:08 bs3 09/27 10:21 Order name: CT Chest For PE Angio; Complete Time: 11:20 bs3 09/27 11:23 Order name: Troponin High Sensitivity; Complete Time: 12:10 bs3 Administered Medications: 09:58 Drug: DuoNeb Nebulize (3:1) (2.5 mg - 0.5 mg) 3 ml Route: Nebulizer; 1 10:27 Follow up: Response: No adverse reaction 1 11:27 Drug: Enoxaparin Sub-Q 1 mg/kg Route: Sub-Q; Site: abdomen; ld1 11:27 Drug: Aspirin PO Chewable Tablet 324 mg Route: PO; ld1 Disposition Summary: 09/27/22 12:17 Discharge Ordered Location: Home bs3 Problem: new bs3 Symptoms: have improved bs3 Condition: Fair bs3 Diagnosis - Chest pain, unspecified bs3 Followup: bs3 - With: Diana Sandoval MD - When: 48 Hours - Reason: Re-evaluation by your physician Discharge Instructions: - Discharge Summary Sheet bs3 - Nonspecific Chest Pain, Adult bs3 Forms: - Antibiotic Education bs3 - Prescription Opioid Use bs3 - Medication Reconciliation Form bs3 - Thank You Letter bs3 Signatures: Dispatcher [employer] Albertina Mojica RN Logan Schilling RN RN ll1 Celena Montana RN RN ld1 Phoenix Rey MD MD bs3
--- NOTE | 2022-09-27 12:18 | ER ---
Nurse's Notes [facility] Name: Carter Jiang Age: 86 yrs Sex: Male : 1935 Arrival Date: 09/27/2022 Time: 09:28 Bed 4 Private MD: Diana Sandoval C Diagnosis: Chest pain, unspecified Presentation: 09/27 09:33 Chief complaint: Sharp left sided chest pain that woke him from sleep approx 3 hours hb ago. Coronavirus screen: At this time, the client does not indicate any symptoms associated with coronavirus-19. Ebola Screen: No symptoms or risks identified at this time. Initial Sepsis Screen: Does the patient meet any 2 criteria? No. Patient's initial sepsis screen is negative. Does the patient have a suspected source of infection? No. Patient's initial sepsis screen is negative. Risk Assessment: Do you want to hurt yourself or someone else? Patient reports no desire to harm self or others. Onset of symptoms was September 27, 2022 at 06:30. 09:33 Method Of Arrival: Ambulatory hb 09:33 Acuity: GRADY 3 hb Historical: - Allergies: 09:34 No Known Drug Allergies; hb - PMHx: 09:34 COPD; hb - PSHx: 09:34 prostate; hb - Immunization history:: Adult Immunizations up to date. - Social history:: Smoking status: Patient/guardian denies using tobacco. Screenin:43 [facility] ED Fall Risk Assessment (Adult) Score/Fall Risk Level 0 - 2 = Low Risk ll1 Oriented to surroundings, Maintained a safe environment, Educated pt \T\ family on fall prevention, incl call for assistance when getting out of bed, Hourly rounding (assess needs \T\ fall precautionary measures) done. Abuse screen: Denies threats or abuse. Nutritional screening: No deficits noted. Tuberculosis screening: No symptoms or risk factors identified. Assessment: 09:55 General: Appears uncomfortable, Behavior is calm, cooperative, appropriate for age. ll1 Pain: Complains of pain in L shoulder Quality of pain is described as aching. Neuro: No deficits noted. Cardiovascular: Reports chest pain, shortness of breath. Respiratory: Reports shortness of breath. GI: No deficits noted. Musculoskeletal: Circulation, motion, and sensation intact. Capillary refill < 3 seconds, Reports pain in L shoulder. 10:30 Reassessment: No changes from previously documented assessment. Patient and/or family ll1 updated on plan of care and expected duration. Pain level reassessed. Patient states feeling better. 10:40 Reassessment: No changes from previously documented assessment. to CT via WC. ll1 11:32 Reassessment: No changes from previously documented assessment. Patient and/or family ll1 updated on plan of care and expected duration. Pain level reassessed. Patient is alert, oriented x 3, equal unlabored respirations, skin warm/dry/pink. Vital Signs: 09:33 BP 139 / 82; Pulse 52; Resp 18; Temp 97.3(TE); Pulse Ox 97% on R/A; Weight 74.84 kg; hb Height 5 ft. 5 in. ; Pain 10/10; 10:32 BP 147 / 69; Pulse 55; Resp 17; Pulse Ox 98% on R/A; ll1 11:06 BP 142 / 63; Pulse 52; Resp 15; Pulse Ox 95% on R/A; ld1 11:28 BP 142 / 63; Pulse 57; Resp 17; Pulse Ox 98% on R/A; ld1 11:32 BP 142 / 63; Pulse 52; Pulse Ox 96% ; ll1 12:17 BP 137 / 63; Pulse 54; Resp 18; Pulse Ox 98% on R/A; ld1 09:33 Body Mass Index 27.46 (74.84 kg, 165.1 cm) hb 09:33 Pain Scale: Adult hb ED Course: 09:28 Patient arrived in ED. am2 09:28 Diana Sandoval MD is Private Physician. am2 09:32 Phoenix Rey MD is Attending Physician. bs3 09:34 Triage completed. hb 09:35 Arm band placed on. hb 09:42 Logan Castrejon RN is Primary Nurse. ll1 09:57 COVID-19 SARS RT PCR Sent. ld1 09:57 Inserted saline lock: 20 gauge in left antecubital area, using aseptic technique. Blood ld1 collected. 10:38 Notified ED physician of a critical lab result(s). Troponin 95.1. ll1 10:49 CT Chest For PE Angio In Process Unspecified. EDMS 10:55 XRAY Chest (1 view) In Process Unspecified. EDMS 10:55 Shoulder Left (2 View) XRAY In Process Unspecified. EDMS 11:31 Troponin High Sensitivity Sent. ll1 12:17 Diana Sandoval MD is Referral Physician. bs3 Administered Medications: 09:58 Drug: DuoNeb Nebulize (3:1) (2.5 mg - 0.5 mg) 3 ml Route: Nebulizer; ll1 10:27 Follow up: Response: No adverse reaction ll1 11:27 Drug: Enoxaparin Sub-Q 1 mg/kg Route: Sub-Q; Site: abdomen; ld1 11:27 Drug: Aspirin PO Chewable Tablet 324 mg Route: PO; ld1 Medication: 09:43 VIS not applicable for this client. ll1 Outcome: 12:17 Discharge ordered by . bs3 Signatures: Dispatcher [employer] EDTN Albertina Vila, RN RN Geri Lebron Lynsay, RN RN ll1 Celena Montana RN RN ld1 Phoenix Rey MD MD bs3
--- NOTE | 2022-09-27 12:24 | RAD REPORT ---
EXAM DESCRIPTION: RAD - Chest Single View - 09/27/2022 10:53 am CLINICAL HISTORY: CHEST PAIN Chest pain. COMPARISON: Chest Single View dated 12/21/2021; Chest Single View dated 12/14/2020; CHEST SINGLE VIEW d ated 08/03/2015; CHEST SINGLE VIEW dated 07/01/2015 FINDINGS: Portable technique limits examination quality. The lungs are emphysematous but grossly clear. The heart is mildly enlarged in size. No displaced fra ctures.Aortic atherosclerosis. IMPRESSION: No acute intrathoracic process suspected.
--- NOTE | 2022-09-27 12:25 | RAD REPORT ---
EXAM DESCRIPTION: RAD - Shoulder Left 2 View - 09/27/2022 10:53 am CLINICAL HISTORY: PAIN COMPARISON: No comparisons FINDINGS: Diffuse osteopenia. 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 No fracture or disl ocation.
[2022-09-27 15:40] VITALS: BP 142/63; O2SAT 96
--- NOTE | 2022-09-28 13:23 | EKG ---
Test Date: 2022-09-27 Test Time: 09:47:33 Silverware Assembler: ANA LILIA MEASUREMENT RESULTS: Intervals: Rate: 53 IN: 98 QRSD: 96 QT: 436 QTc: 409 [place]: P: IN: 98 QRS: 12 T: 77 INTERPRETIVE STATEMENTS: Sinus bradycardia with short IN Anteroseptal infarct, age undetermined Abnormal ECG Compared to ECG 12/21/2021 22:36:04 Short IN interval now present Right-axis deviation no longer present Myocardial infarct finding still present Electronically Signed On 09-28-22 13:20:11 CDT by Fran Gonzalez
== END 2022-09-27 12:27 | disposition home or self-care (01) ==
LOC: ER 09:24
DX: R07.89 Other chest pain (principal); J44.9 Chronic obstructive pulmonary disease, unspecified; Z20.822 Contact with and (suspected) exposure to COVID-19
CPT/HCPCS: 93005; 85025; 36415; 85379; 84484 ×2; 83690; 80053; 83880; 71275; 71045; 73030; 94640; 96372; 99285; U0003; Q9967; J7613; J7644

== ENCOUNTER 2023-05-14 09:17 | Emergency (ER) | payer OTHER ==
--- OUTSIDE RECORDS SUMMARY | 2023-05-14 09:21 | XMS REPORT | Continuity of Care Document ---
:1935 Author Organization [facility] t Address [address] [place] [address] [address] [place] [address] Care Team Providers Name Role Phone SHARLENE KELLOGG Attending Clinician Unavailable Ann BURNS, Paddy Wiley Attending Clinician Sharlene Kellogg MD Attending Clinician Karen BURNS, Sri Attending Clinician Reji BURNS, Eliazar Lopes Attending Clinician Shanna BURNS, Celena Muñoz Attending Clinician Unavailable SRI JONES Admitting Clinician Unavailable Payers Payer Name Policy Type Policy Number Effective Date Expiration Date Nathalie moraes [employer] MEDICARE HMO [id number] 2017 POS 00:00:00 Problems Condition Condition Condition Status Onset Resolution Last Treating Co mments Source Name Details Category Date Date Treatment Clinician Date Abdominal Abdominal Disease [facility] Allergies, Adverse Reactions, Alerts Allergy Allergy Status Severity Reaction(s) Onset Inactive Treating Comm ents Source Name Type Date Date Clinician NO KNOWN Allergy Active [facility] Social History Social Habit Start Date Stop Date Quantity Comments Source History [facility] Tobacco use and 2021-12-22 2021-12-[address] [facility] exposure 00:00:00 00:00:00 Medical Center History SDOH 2021-12-22 2021-12-[address] [facility] Housing Homeless 00:00:00 00:00:00 Medical Center Last Year Tobacco Comment 2021-12-22 2021-12-[address] [facility] 00:00:00 00:00:00 diagnosed with Medical Ce nter COPD History [facility] 2021-12-22 2021-12-[address] [facility] Transport Med 00:00:00 00:00:[address] History [facility] 2021-12-22 2021-12-[address] [facility] Housing Unable to 00:00:00 00:00:00 Medical Center Pay History [facility] 2021-12-22 2021-12-[address] [facility] Housing Places 00:00:00 00:00:00 Medical Ce nter Lived History of tobacco 1999-07-[address] [facility] use 00:00:00 [facility] Sex Assigned At [address] [facility] 00:00:00 00:00:00 Medical Center Smoking Status Start Date Stop Date Source Former smoker 2021-12-22 00:00:00 2021-12-22 00:00:00 [facility] Medications Ordered Filled Start Stop Current Ordering Indication Dosage Frequency Signature Comments Components Source Medication Medication Date Date Medication? Clinician (SIG) Name Name amLODIPine 2022- No 5mg QD Take [address] [address] (NORVASC) 5 6-11 06-11 tablet (5 [facility] MG tablet 00:00: 23:59 mg total) Me dical 00 :00 by mouth Center daily. amLODIPine 2022- No 5mg QD Take [address] (NORVASC) 5 6-11 06-11 tablet (5 [facility] MG tablet 00:00: 23:59 mg total) Me dical 00 :00 by mouth Center daily. finasteride Yes 5mg QD Take [address] (PROSCAR) 5 6-10 by mouth Luke s mg tablet 16:50: daily. Medica l 08 [place] albuterol Yes 1{puff} Inhale [address] HFA 6-10 puff by [facility] (VENTOLIN 16:50: mouth via Med ical HFA) 90 08 inhaler Center mcg/actuati every 6 on inhaler (six) hours as needed for Wheezing. saw Yes 450mg Q.[id number] Take [address] [place] 6-10 [id number] mg by Luke s 160 MG 16:50: 3D mouth 3 Medical capsule 08 (three) Center times daily. omega-3 Yes 1200mg QD Take 1,[address] fatty 6-10 mg by [place] acids-fish 16:50: mouth Medica l oil 08 daily. Center 340-1,000 mg Cap per capsule ascorbic Yes 500mg QD Take [address] acid, 6-10 mg by [place] vitamin C, 16:50: mouth Medica l (ascorbic 08 daily. [place] acid with oneal hips) 500 MG tablet cholecalcif Yes 89363V QD Take [facility] 6-10 10,000 [facility] (VITAMIN 16:50: Units by Medic al D3) 10 mcg 08 mouth Center (400 unit) daily. Tab tablet lactobacill Yes 1{tbl} QD Take [address] us acidoph 6-10 tablet by Laureano s & bulgar-S. 16:50: mouth Medic al [...] vitamin 16:50: mouth Medical B-12, 08 daily. [place] (vitamin B-12) 100 MCG tablet finasteride Yes 5mg QD Take [address] (PROSCAR) 5 6-10 by mouth Luke s mg tablet 16:50: daily. Medica l 08 Center albuterol Yes 1{puff} Inhale [address] HFA 6-10 puff by [place] (VENTOLIN 16:50: mouth via Med ical HFA) 90 08 inhaler Center mcg/actuati every 6 on inhaler (six) hours as needed for Wheezing. saw Yes 450mg Q.[id number] Take [address] [place] 6-10 [id number] mg by Luke s 160 MG 16:50: 3D mouth 3 Medical capsule 08 (three) Center times daily. omega-3 Yes 1200mg QD Take 1,[address] fatty 6-10 mg by [facility]ukes acids-fish 16:50: mouth Medica l oil 08 daily. Center 340-1,000 mg Cap per capsule ascorbic Yes 500mg QD Take [address] acid, 6-10 mg by [facility]ukes vitamin C, 16:50: mouth Medica l (ascorbic 08 daily. [place] acid with oneal hips) 500 MG tablet cholecalcif Yes 27130U QD Take [facility] 6-10 10,000 [...] 16:50: mouth Medical mg tablet 08 daily. [place] aspirin 81 Yes 81mg QD Take [address] MG chewable 6-10 by mouth Luke s tablet 16:50: daily. Medical 08 Center cyanocobala Yes 100ug QD Take [address] min, 6-10 mcg by [facility]ukes vitamin 16:50: mouth Medical B-12, 08 daily. [place] (vitamin B-12) 100 MCG tablet cholecalcif 0 2021- No 1000U QD Take 1,[address] [facility]olas, 6-10 06-10 Units by [place] vitamin D3, 13:38: 00:00 mouth Medi francesca 25 mcg 46 :00 daily. [place] (1,000 unit) capsule predniSONE 0 2021- No 10mg Take [address] (DELTASONE) 6-10 06-10 by mouth Lori es 10 MG 13:38: 00:00 daily as Medical tablet 24 :00 needed. Center Vital Signs Vital Name Observation Time Observation Value Comments Source HEIGHT 2021-12-22 10:00:00 160 cm WEIGHT 2021-12-22 10:00:00 71.124 kg HEIGHT 2021-12-22 10:00:00 160 cm WEIGHT 2021-12-22 10:00:00 71.124 kg Systolic blood 2021-12-24 10:34:00 135 mm[Hg] [facility] Diastolic blood 2021-12-24 10:34:00 60 mm[Hg] [facility] Heart rate 2021-12-24 10:34:00 53 /min [facility] Body temperature 2021-12-24 10:34:00 36 Shana [facility] Respiratory rate 2021-12-24 10:34:00 18 /min [facility] Oxygen saturation in 2021-12-24 10:34:00 96 /min [facility] Arterial blood by Medical Ce nter Pulse oximetry Body height 2021-12-22 10:00:00 160 cm [facility] Body weight 2021-12-22 10:00:00 71.124 kg [facility] BMI 2021-12-22 10:00:00 27.78 kg/m2 [facility] Procedures Procedure Date / Time Performing Clinician Source Performed CBC W/PLT COUNT & AUTO 2021-12-24 14:12:00 Valdez, [facility] COMPREHENSIVE METABOLIC 2021-12-24 14:12:00 Valdez, [facility] CBC W/PLT COUNT & AUTO 2021-12-24 14:12:00 Valdez, [facility] POCT-GLUCOSE METER 2021-12-24 10:36:00 Valdez, [facility] POCT-GLUCOSE METER 2021-12-24 07:00:00 Valdez, [facility] POCT-GLUCOSE METER 2021-12-23 20:16:00 [facility], [facility] REPORT OF PROCEDURE - 2021-12-23 15:16:29 Eliazar Mendoza CH, I [facility] ENDOSCOPY [facility] POCT-GLUCOSE METER 2021-12-23 12:38:00 Sharlene Kellogg [facility] [place] ERCP 2021-12-23 10:48:[facility] BALLOON SWEEP 2021-12-23 10:13:00 Mendoza, [facility] OF BILE DUCTS [facility] PROCEDURE W/ C-ARM 2021-12-23 10:13:00 Reji [facility] ERCP, WITH CHOLANGIOSCOPY 2021-12-23 10:13:00 Mendoza, [facility] ERCP, WITH SPHINCTEROTOMY 2021-12-23 10:13:[address] [facility] CBC (HEMOGRAM ONLY) 2021-12-23 05:21:00 Karen [facility] COMPREHENSIVE METABOLIC 2021-12-23 05:21:[address] [facility] LIPASE 2021-12-23 05:21[facility] HEMOGLOBIN A1C 2021-12-23 05:21:00 Karen [facility] POCT-GLUCOSE METER 2021-12-22 21:52:00 Ann [facility] POCT-GLUCOSE METER 2021-12-22 18:04:00 Ann [facility] XR CHEST 1 VIEW PORTABLE 2021-12-22 17:19:00 Sri Jones [facility] / BEDSIDE [facility] SARS-COV2/RT-PCR ([facility] & 2021-12-22 14:19:00 Jorge Berman [facility] REF LABS) [facility] POCT-GLUCOSE METER 2021-12-22 08:24:00 Ann [facility] Plan of Care Planned Activity Planned Date Details Comments Source Future Scheduled 2023-03-17 Influenza Vaccine (#1) [facility] Test 00:00:00 [code = Influenza Medical Ce nter Vaccine (#1)] Future Scheduled 2022-12-[address] [facility] Test 00:00:00 [facility] Medical Cente r Screening (12+) [code = Tobacco Cessation Counseling and Screening (12+)] Future Scheduled 2022-12-[address] [...] RISK Medical C enter SCREENING] Future Scheduled 2022-07-[address] [...] FIRST YEAR if no IPPE)] Future Scheduled 1994-05-[address] [facility] Test 00:00:00 WELLNESS (YEAR 2 or Medical Center FIRST YEAR if no IPPE) [code = MEDICARE ANNUAL WELLNESS (YEAR 2 or FIRST YEAR if no IPPE)] Future Scheduled 1985-11-21 SHINGLES VACCINES ([address] [facility] Test 00:00:00 of 2) [code = SHINGLES Medic al Center VACCINES (1 of 2)] Future Scheduled 1985-11-21 SHINGLES VACCINES ([address] [facility] Test 00:00:00 of 2) [code = SHINGLES Medic al Center VACCINES (1 of 2)] Future Scheduled 1954-11-21 DTAP/TDAP/TD VACCINES [facility] Test 00:00:00 (1 - Tdap) [code = Medical C enter DTAP/TDAP/TD VACCINES (1 - Tdap)] Future Scheduled 1954-11-21 DTAP/TDAP/TD VACCINES [facility] Test 00:00:00 (1 - Tdap) [code = Medical C enter DTAP/TDAP/TD VACCINES (1 - Tdap)] Future Scheduled 1941-11-21 PNEUMOCOCCAL 65+ YRS [facility] Test 00:00:00 (1 - PCV) [code = Medical Ce nter PNEUMOCOCCAL 65+ YRS (1 - PCV)] Future Scheduled 1941-11-21 PNEUMOCOCCAL 65+ YRS [facility] Test 00:00:00 (1 - PCV) [code = Medical Ce nter PNEUMOCOCCAL 65+ YRS (1 - PCV)] Future Scheduled 1936-05-24 COVID-19 VACCINE (#1) [facility] Test 00:00:00 [code = COVID-[address] VACCINE (#1)] Future Scheduled 1936-05-24 COVID-19 VACCINE (#1) [facility] Test 00:00:00 [code = COVID-[address] VACCINE (#1)] Encounters Start End Encounter Admission Attending Care Care Encounter Source Date/Time Date/Time Type Type Clinicians Facility Department ID 2021-12-22 2021-12-24 Inpatient ER VALDEZ, SHARLENE [facility] [id number] SLE 08:11:00 16:49:00 2021-12-22 2021-12-24 Hospital ER Ankush Juarezlibia Wiley [facility] [id number] [facility] 08:11:00 16:49:00 [facility] 2021-12-23 Surgery Reji [facility] [id number] 10:00:00 11:30:00 [facility] 2021-12-23 2021-12-23 Anesthesia Shanna [facility] [id number] 10:18:00 11:27:[address] [facility] 2021-12-22 2021-12-22 Travel [facility] [id number] [facility] 00:[facility]00 00:00:00 [facility] Results Test Description Test Time Test Comments [...] NOT 1092) ACCURATE CRE ATININE CLEARANCE IN MO EDICTING GLOMERULAR FILT RATION RATE. ESTIMATED GFR IS NOT APPLICABLE FOR DIALYSIS PATIENTS. District Commercial Superintendent ID - CARLO MCBC W/PLT COUNT & AUTO [id number] 14:23:26 Test Item Value Reference Range Interpretation [...] PERCENT (BEAKER) (test code = 2801) POC-Glucose [id number] 10:48:58 Test Item Value Reference Range Interpretation Comments POC-Glucose Meter (test 115 mg/dL 70-110 H : TE STED AT [facility] code = 1538) 6799 [facility], 770 30: District Commercial Superintendent/Techni mariana ID = [id number] for QUEEN MENDOZA Lab Interpretation (test Abnormal code = 28662-3) [facility] [id number] 10:48:58 Test Item Value Reference Range Interpretation Comments POC-GLUCOSE METER 115 mg/dL 70-110 H : TESTED A T [facility] 6720 (BEAKER) (test code = [facility], 1538) [address]: District Commercial Superintendent/Techni mariana ID = [id number] for QUEEN HENRY POCT-GLUCOSE [id number] 07:14:19 Test Item Value Reference Range Interpretation Comments POC-GLUCOSE METER 104 mg/dL 70-110 : TESTED A T [facility] 6720 (BEAKER) (test code = [facility], 1538) 17329: District Commercial Superintendent/Techni mariana ID = [id number] for QUEEN HENRY POCT-GLUCOSE [id number] 20:31:26 Test Item Value Reference Range Interpretation Comments POC-GLUCOSE METER 115 mg/dL 70-110 H : TESTED A T [facility] 6720 (BEAKER) (test code = [facility], 1538) 72229: District Commercial Superintendent/Techni mariana ID = [id number] for LUIS LOO POCT-GLUCOSE [id number] 12:49:01 Test Item Value Reference Range Interpretation Comments POC-GLUCOSE METER 105 mg/dL 70-110 : TESTED A T [facility] 6720 (BEAKER) (test code = [facility], 1538) 98847: District Commercial Superintendent/Techni mariana ID = [id number] for BELLA MELENDREZ TTE [place], [id number] 10:48:00Reason for exam:->[facility] 1935 Sex: MAn imaging unit was utilized for this procedure. No radiologist interpretation was requested. Refer to the EMR for findings. Refer to PACS for any patient radiation dose information.HEMOGLOBIN [id number] 10:28:34 Test Item Value Reference Range Interpretation Comments HEMOGLOBIN A1C 6.0 % See_Comment H [Automated m essage] ELECTROPHORESIS (BEAKER) The system which (test code = 3811) generated this result transmitted ref erence range: <=5.6%. The reference range was not used to int erpret this result as normal/abnormal . "The A1c is measured using a [facility]-certified method. HbA1c value equal to or greater than 6.5% as thediagnosis cutoff for diabetes. An HbA1c value of 5.7- 6.4% indicates increased risk for diabetes (prediabetes)."District Commercial Superintendent ID - ADM [id number] 06:31:07 Test Item Value Reference Range Interpretation Comments LIPASE (BEAKER) (test code = 749) 63 U/L 8-78 District Commercial Superintendent ID - PIAYA LCOMPREHENSIVE METABOLIC [id number] 06:31:05 Test Item Value Reference Range Interpretation [...] S NOT APPLICABLE FOR DIALYSIS PATIEN TS. District Commercial Superintendent ID - PIAYA LCBC (HEMOGRAM ONLY)2021-12-23 05:50:39 [...] = 413) RAD, CHEST, 1 VIEW, NON [id number] 03:58:00Reason for exam:->sobShould this be performed at the bedside?->Yes [facility] 1935 Sex: MFINAL REPORT RAD, CHEST, 1 VIEW, NON DEPT INDICATION: sob COMPARISON: None available FINDINGS: Portable frontal view of the chest. IMPRESSION: Support Lines: None. Lungs and pleura: Discoid atelectasis in the left lateral lung with elevation left hemidiaphragm. Coarse interstitialhazy airspace opacities in the bilateral lungs may represent interstitial pulmonary fibrosis. No large pleural effusion or pneumothorax. No pneumothorax.Heart and mediastinum: Stable contours. Stable surgical changes.Additional findings: None. Signed: Indy Kim Verified Date/Time: 12/23/2021 03:58:37 SARS-CoV2/RT-PCR (Symptomatic ONLY)2021-12-23 01:37:11 Test Item Value Reference Range Interpretation Comments SARS-COV2/RT-PCR (test Negative Negative code = 12862-6) YOUNG (test code = YOUNG) Negative result [...] the Act. Testing was performed using the [employer] SARS-CoV-2 assay. Fact Sheet for Healthcare Providers:https://www.nilesh gomez/radha/RT SARS-CoV-2 HCP Fact Sheet 51-044970.pdf Fact Sheet for Healthcare Patients:https://www.allyssa monteMealnut/radha/RT SARS-CoV-2 Patient Fact Sheet EN 51-788611W1.pdf Lab Interpretation Normal (test code = 01756-9) [facility])2021-12-23 01:37:11 Test Item Value Reference Range Interpretation Comments SARS-COV2/RT-PCR (test code = Negative Negative 8593251) Negative result for this test determines that [...] 564(g) of the Act.Testing was performed using [employer] SARS-CoV-2 assay.Fact Sheet for Healthcare Providers:https://www.[employer] Network/radha/RT SARS-CoV-2 HCP Fact Sheet 51- 704984.pdfFact Sheet for Healthcare Patients:https://www.Solarus.CriticalMetrics/radha/RT SARS-CoV-2 Patient Fact Sheet EN 51-640926I2.pdfPOCT-GLUCOSE [id number] 22:05:09 Test Item Value Reference Range Interpretation Comments POC-GLUCOSE METER 121 mg/dL 70-110 H : TESTED A T [facility] 6720 (LivradaAKER) (test code = [facility], 1538) 81704: District Commercial Superintendent/Techni mariana ID = [id number] for JIMMIE DESOUZA POCT-GLUCOSE [id number] 18:16:06 Test Item Value Reference Range Interpretation Comments POC-GLUCOSE METER 148 mg/dL 70-110 H : TESTED A T [facility] 6720 (BEAKER) (test code = [facility], 1538) 94831: District Commercial Superintendent/Techni mariana ID = [id number] for BELLA MELENDREZ POCT-GLUCOSE [id number] 08:38:21 Test Item Value Reference Range Interpretation Comments POC-GLUCOSE METER 182 mg/dL 70-110 H : TESTED A T [facility] 6720 (BEAKER) (test code = [facility], 1538) 10195: District Commercial Superintendent/Techni mariana ID = [id number] for BELLA MELENDREZ
[2023-05-14] MEDS ORDERED: LIDOCAINE 2% W/EPI 1:200,000 MPF 20 ML VIAL IM ONE (09:47)
[2023-05-14] MEDS ORDERED: TDAP (DIPHTH,PERTUSS(ACELL),TET VAC) 0.5 ML VIAL IMVAC ONE (09:48)
[2023-05-14] MEDS ORDERED: LIDOCAINE 1% MPF 5 ML VIAL ONE (09:48)
--- NOTE | 2023-05-14 10:08 | ER ---
Nurse's Notes [facility] Name: Carter Jiang Age: 87 yrs Sex: Male : 1935 Arrival Date: 05/14/2023 Time: 09:17 Bed 12 Private MD: Diagnosis: Hand Laceration/ Open wound of hand Presentation: 05/14 09:27 Chief complaint: Left hand laceration from kitchen knife just COIL TIER. Bleeding controlled. hb Coronavirus screen: At this time, the client does not indicate any symptoms associated with coronavirus-19. Ebola Screen: No symptoms or risks identified at this time. Complicating Factors: There are no complicating factors for this patient. Initial Sepsis Screen: Does the patient meet any 2 criteria? No. Patient's initial sepsis screen is negative. Does the patient have a suspected source of infection? No. Patient's initial sepsis screen is negative. Risk Assessment: Do you want to hurt yourself or someone else? Patient reports no desire to harm self or others. Onset of symptoms was May 14, 2023. 09:27 Method Of Arrival: Ambulatory 09:27 Acuity: GRADY 4 hb Historical: - Allergies: 09:28 No Known Drug Allergies; hb - PMHx: 09:28 COPD; hb - PSHx: 09:28 prostate; hb Vital Signs: 09: BP 169 / 92; Pulse 88; Resp 24; Temp 97.8; Pulse Ox 95% on R/A; Pain 4/10; hb 09:27 Pain Scale: Adult hb ED Course: 09:20 Patient arrived in ED. hb 09:22 Maciel Santiago MD is Attending Physician. ec2 09:28 Triage completed. hb 09:28 Arm band placed on. hb Administered Medications: : CANCELLED (Physician Discretion): lidocaine(1 %) 5 mg Infiltration once ec2 Outcome: 10:07 Discharge ordered by . ec2 10:28 Patient left the ED. hb Signatures: Albertina Vila RN RN Maciel Turk MD MD ec2
--- NOTE | 2023-05-14 10:08 | EDPHYS ---
Physician Documentation [facility] Name: Carter Jiang Age: 87 yrs Sex: Male : 1935 Arrival Date: 05/14/2023 Time: 09:17 Bed 12 Private MD: ED Physician Maciel Santiago HPI: 05/14 09:29 This 87 yrs old Male presents to ER via Ambulatory with complaints of ec2 Laceration To Hand. 09:29 Patient arrives today for evaluation of a left hand injury. States that he was cutting ec2 a watermelon subsequently slipped and cut himself on the dorsal aspect of the left hand near the base of the first digit. Patient reports bleeding was controlled, denies any other injuries. Unsure of his last tetanus shot.. Historical: - Allergies: 09:28 No Known Drug Allergies; hb - PMHx: 09:28 COPD; hb - PSHx: 09:28 prostate; hb ROS: 09:29 Constitutional: as per hpi ec2 Exam: :29 Constitutional: GEN: NAD Head: atraumatic Eyes: EOMI Ears: External ears are ec2 normal. CV: regular rate LUNGS: no respiratory distress ABD: non-distended SKIN: 3 cm laceration noted to the dorsal aspect of the base of the left thumb, no active bleeding, intact distal neurovascular status. MSK: good range of motion throughout NEURO: moves all extremities equally Vital Signs: 09:27 BP 169 / 92; Pulse 88; Resp 24; Temp 97.8; Pulse Ox 95% on R/A; Pain 4/10; hb 09:27 Pain Scale: Adult hb Laceration: 10:05 Wound Repair of 3cm ( 1.2in ) subcutaneous laceration to left hand. Distal ec2 neuro/vascular/tendon intact. Anesthesia: Local anesthetic administered with 5 mls of 1% lidocaine. Skin closed with 4-0 chromic gut using simple sutures and sterile technique. Patient tolerated well. MDM: 09:22 Patient medically screened. ec2 09:29 Data reviewed: vital signs. ED course: Patient arrives today for evaluation of a left ec2 hand injury. Examination remarkable for skin findings as noted above. I will anesthetize the area with lidocaine and closed it with sutures. I do not feel he would benefit from an x-ray due to laceration appearing fairly shallow, I have a low suspicion for bony fracture, I have a low suspicion for a neurovascular injury.. 10:05 ED course: Laceration repaired with 4 Chromic Gut sutures. Will discharge home, return ec2 precautions given.. Administered Medications: 09:29 CANCELLED (Physician Discretion): lidocaine(1 %) 5 mg Infiltration once ec2 Disposition Summary: 05/14/23 10:07 Discharge Ordered Notes: Location: Home ec2 Condition: Stable ec2 Diagnosis - Hand Laceration/ Open wound of hand ec2 Discharge Instructions: - Discharge Summary Sheet ec2 - Laceration Care, Adult ec2 Forms: - Medication Reconciliation Form ec2 - Thank You Letter ec2 - Antibiotic Education ec2 - Prescription Opioid Use ec2 - Patient Portal Instructions ec2 - Leadership Thank You Letter ec2 Signatures: Albertina Vila RN RN Maciel Santiago MD MD ec2 Corrections: (The following items were deleted from the chart) 09: 09:28 Lidocaine Infiltration (1 %) 5 mg Infiltration once ordered. ec2 ec2
[2023-05-14 10:49] VITALS: BP 169/92; TEMP 97.8; O2SAT 95
== END 2023-05-14 10:28 | disposition home or self-care (01) ==
LOC: ER 09:17
PROC: 0HQGXZZ Repair Left Hand Skin, External Approach (ICD-10-PCS; principal; 2023-05-14)
DX: S61.412A Laceration without foreign body of left hand, initial encounter (principal)
CPT/HCPCS: 99281; 12002; J2001

== ENCOUNTER 2023-11-17 22:29 | Emergency (ER) | payer OTHER ==
[2023-11-18] MEDS ORDERED: dexAMETHasone 10 MG/ML VIAL ONE (00:05)
[2023-11-18] MEDS ORDERED: MORPHINE 2 MG/ML SYR ONE (00:05)
[2023-11-18] MEDS ORDERED: KETOROLAC 30 MG/ML INJ ONE (00:05)
[2023-11-18] MEDS ORDERED: ONDANSETRON 4 MG/2 ML VIAL ONE (00:05)
[2023-11-18] MEDS ORDERED: DIAZEPAM 5 MG TABLET ONE (00:06)
[2023-11-18 00:35] LABS: Absolute Eosinophils 0.1 K/uL (0-0.5); Absolute Monocytes 1.1 K/uL (0.1-1.3); Absolute Neutrophil 7.6 K/uL (1.8-8.0); Basophils % 0.2 % (0-1.3); Eosinophils % 1.1 % (0-4.4); Hematocrit 42.3 % (39.6-49.0); Hemoglobin 14.3 g/dL (13.6-17.9); Lymphocytes % 10.2 % (15.3-44.8); MCH 31.2 pg (27.0-35.0); MCHC 33.8 g/dL (32.0-36.0); MCV 92.3 fL (80-100); MPV 8.9 fL (7.6-11.3); Monocytes % 11.5 % (3.3-12.3); Platelets 161 thou/uL (152-406); RBC Red Blood Cell Count 4.58 M/uL (4.33-5.43); Red Cell Distribution Width 14.3 % (12.1-15.2)
[2023-11-18 00:51] LABS: PT Prothrombin Time 13.1 SECONDS (9.5-12.5); Protime INR 1.2
[2023-11-18 00:59] LABS: Albumin 3.1 g/dL (3.4-5.0); Albumin/Globulin Ratio 0.8 (1.1-1.8); Anion Gap 7.7 mEq/L (5.0-15.0); Bilirubin Direct 0.2 mg/dL (0-0.2); Bilirubin Indirect, Calculated 0.4 mg/dL (0.2-0.8); Bilirubin Total 0.6 mg/dL (0.2-1.0); Magnesium 2.2 mg/dL (1.6-2.4); Potassium 3.7 mEq/L (3.5-5.1); Protein, Total 7.1 g/dL (6.4-8.2); Troponin High Sensitivity 45.7 pg/mL (<58.9)
--- NOTE | 2023-11-18 03:25 | EDPHYS ---
Physician Documentation [facility] Name: Carter Jiang Age: 87 yrs Sex: Male : 1935 Arrival Date: 11/17/2023 Time: 22:29 Bed 8 Private MD: ED Physician Wali Mccallum HPI: 11/16 23:46 This 87 yrs old Male presents to ER via Wheelchair with complaints of Leg Pain.lila 23:42 The patient presents with decreased range of motion, pain, that is acute. The lila complaints affect the lateral aspect of right thigh and right quadriceps. Context: The problem was sustained at an unknown site, resulted from an unknown cause, the patient is not able to bear weight, the patient is not able to ambulate. Onset: The symptoms/episode began/occurred today. Modifying factors: The symptoms are alleviated by nothing. the symptoms are aggravated by nothing. Associated signs and symptoms: The patient has no apparent associated signs or symptoms. Severity of symptoms: At their worst the symptoms were moderate, in the emergency department the symptoms are unchanged. The patient has not experienced similar symptoms in the past. 23:46 Treatment prior to arrival includes: no previous treatment. lila Historical: - Allergies: 23:10 No Known Allergies; km8 - Home Meds: 23:10 Unable to obtain [Active]; km8 - PMHx: 23:10 COPD; km8 - PSHx: 23:10 prostate; km8 - Immunization history:: Adult Immunizations up to date. - Infectious Disease History:: Denies. - Social history:: Smoking status: Patient/guardian denies using tobacco, but has a distant history of tobacco abuse, Patient/guardian denies using alcohol, street drugs. - Family history:: not pertinent. ROS: 23:42 Constitutional: Negative for fever, chills, and weight loss, Eyes: Negative for injury, lila pain, redness, and discharge, ENT: Negative for injury, pain, and discharge, Neck: Negative for injury, pain, and swelling, Cardiovascular: Negative for chest pain, palpitations, and edema, Respiratory: Negative for shortness of breath, cough, wheezing, and pleuritic chest pain, Abdomen/GI: Negative for abdominal pain, nausea, vomiting, diarrhea, and constipation, Back: Negative for injury and pain, : Negative for injury, bleeding, discharge, and swelling, Skin: Negative for injury, rash, and discoloration, Neuro: Negative for headache, weakness, numbness, tingling, and seizure, Psych: Negative for depression, anxiety, suicide ideation, homicidal ideation, and hallucinations, Allergy/Immunology: Negative for hives, rash, and allergies, Endocrine: Negative for neck swelling, polydipsia, polyuria, polyphagia, and marked weight changes, Hematologic/Lymphatic: Negative for swollen nodes, abnormal bleeding, and unusual bruising, 23:42 MS/extremity: Positive for decreased range of motion, pain, of the right leg, Exam: 23:42 Constitutional: This is a well developed, well nourished patient who is awake, alert, lila and in no acute distress. Head/Face: Normocephalic, atraumatic. Eyes: Pupils equal round and reactive to light, extra-ocular motions intact. Lids and lashes normal. Conjunctiva and sclera are non-icteric and not injected. Cornea within normal limits. Periorbital areas with no swelling, redness, or edema. ENT: Nares patent. No nasal discharge, no septal abnormalities noted. Tympanic membranes are normal and external auditory canals are clear. Oropharynx with no redness, swelling, or masses, exudates, or evidence of obstruction, uvula midline. Mucous membranes moist. Neck: Trachea midline, no thyromegaly or masses palpated, and no cervical lymphadenopathy. Supple, full range of motion without nuchal rigidity, or vertebral point tenderness. No Meningismus. Chest/axilla: Normal chest wall appearance and motion. Nontender with no deformity. No lesions are appreciated. Cardiovascular: Regular rate and rhythm with a normal S1 and S2. No gallops, murmurs, or rubs. Normal PMI, no JVD. No pulse deficits. Respiratory: Lungs have equal breath sounds bilaterally, clear to auscultation and percussion. No rales, rhonchi or wheezes noted. No increased work of breathing, no retractions or nasal flaring. Abdomen/GI: Soft, non-tender, with normal bowel sounds. No distension or tympany. No guarding or rebound. No evidence of tenderness throughout. Back: No spinal tenderness. No costovertebral tenderness. Full range of motion. Male : Normal genitalia with no discharge or lesions. Skin: Warm, dry with normal turgor. Normal color with no rashes, no lesions, and no evidence of cellulitis. Neuro: Awake and alert, GCS 15, oriented to person, place, time, and situation. Cranial nerves II-XII grossly intact. Motor strength 5/5 in all extremities. Sensory grossly intact. Cerebellar exam normal. Normal gait. Psych: Awake, alert, with orientation to person, place and time. Behavior, mood, and affect are within normal limits. 23:42 Musculoskeletal/extremity: Extremities: grossly normal except: decreased ROM, pain, tenderness, ROM: limited active range of motion, limited passive range of motion, in the right leg, limited active range of motion due to pain, limited passive range of motion due to pain, Circulation is intact in all extremities. Compartment Syndrome exam of affected extremity: is normal. no tingling, no sensation deficit, no palor, no weak pulses, severe pain, Weight bearing: is unable to bear weight, DVT Exam: no swelling, negative Homans' sign noted on exam, no appreciated bluish discoloration, no erythema, no increased warmth, pain, tenderness, 11/17 00:03 ECG was reviewed by the Attending Physician. lila Vital Signs: 11/16 23:08 BP 125 / 66; Pulse 58; Resp 18; Temp 97.8(O); Pulse Ox 96% on R/A; Weight 74.84 kg (R); km8 Height 5 ft. 3 in. (R); Pain 9/10; 23:30 BP 135 / 68; Pulse 54; Resp 16; Pulse Ox 97% on R/A; [facility] 11/17 00:00 BP 182 / 79; Pulse 54; Resp 16; Pulse Ox 98% on R/A; 8 01:00 BP 160 / 81; Pulse 51; Resp 16; Pulse Ox 96% on R/A; 8 03:19 BP 169 / 74; Pulse 45; Pulse Ox 93% on R/A; Pain 5/10; tm6 11/16 23:08 Body Mass Index 29.23 (74.84 kg, 160.02 cm) [facility] 11/16 23:08 Pain Scale: Adult 8 03:19 Pain Scale: Adult 6 Miguel Coma Score: 11/16 23:15 Eye Response: spontaneous(4). Motor Response: obeys commands(6). Verbal Response: [facility] oriented(5). Total: 15. MDM: 22:43 Patient medically screened. [facility] 23:45 Differential diagnosis: closed fracture, contusion, tendonitis. Data reviewed: vital lila signs, nurses notes, lab test result(s), EKG, radiologic studies, CT scan, doppler, plain films. Consideration of Admission/Observation Escalation of care including admission/observation considered. I considered the following discharge prescriptions or medication management in the emergency department Medications were administered in the Emergency Department. See MAR. Independent interpretation of the following test(s) in the Emergency Department EKG: See my EKG interpretation above. Test considered but Not performed: MRI: NO MRI LUMBAR, RIGHT THIGH. Care significantly affected by the following chronic conditions: Chronic Obstructive Pulmonary Disease. 11/17 03:40 ED course: dw daughter severe left greater than right pvd and spine degenerative lila changes, daughter said no procedures and /or surgery. 11/16 23:42 Order name: Basic Metabolic Panel; Complete Time: 01:00 [facility] 11/16 23:42 Order name: CBC with Diff; Complete Time: 00:53 [facility] 11/16 23:42 Order name: LFT's; Complete Time: 01:00 [facility] 11/16 23:42 Order name: Magnesium; Complete Time: 01:00 [facility] 11/16 23:42 Order name: NT PRO-BNP; Complete Time: 01:00 [facility] 11/16 23:42 Order name: PT-INR; Complete Time: 00:53 [facility] 11/16 23:42 Order name: Troponin HS; Complete Time: 01:00 [facility] 11/16 23:42 Order name: Urinalysis w/ reflexes [facility] 11/16 23:42 Order name: XRAY Chest (1 view) [facility] 11/16 23:42 Order name: Femur Right XRAY [facility] 11/16 23:42 Order name: US Extremity Venous W Compression Seth [facility] 11/16 23:42 Order name: CT Lumbar Spine Wo Con [facility] 11/17 00:59 Order name: Lower Extremity Arterial Bilat EDAK 11/16 23:42 Order name: Cardiac monitoring; Complete Time: 00:01 [facility] 11/16 23:42 Order name: EKG - Nurse/Tech; Complete Time: 00:02 [facility] 11/16 23:42 Order name: IV Saline Lock; Complete Time: 00:02 [facility] 11/16 23:42 Order name: Labs collected and sent; Complete Time: 00: [facility] 11/16 23:42 Order name: O2 Per Protocol; Complete Time: [facility] 11/16 23:42 Order name: O2 Sat Monitoring; Complete Time: [facility] EC: Rate is 54 beats/min. Rhythm is regular. QRS Rochelle is Normal. NH interval is normal. QRS lila interval is normal. QT interval is normal. No Q waves. T waves are Normal. No ST changes noted. Clinical impression: Sinus bradycardia and No evidence of ischemia. Interpreted by me. Reviewed by me. Administered Medications: 00:18 Drug: morphine IVP or IV 2 mg IVP once over 4 mins Route: IVP; Infused Over: 4 mins; km8 Site: left forearm; 01:00 Follow up: Response: No adverse reaction; Pain is decreased km8 00:18 Drug: Ondansetron IVP 2 mg IVP once; over 2 minutes Route: IVP; Site: left forearm; km8 01:00 Follow up: Response: No adverse reaction km8 00:18 Drug: Diazepam PO 5 mg PO once Route: PO; km8 03:29 Follow up: Response: No adverse reaction; Pain is decreased km8 00:18 Drug: Decadron - Dexamethasone IVP 10 mg IVP once Route: IVP; Site: left forearm; km8 01:00 Follow up: Response: No adverse reaction; Pain is decreased km8 00:18 Drug: Ketorolac IVP 15 mg IVP once Route: IVP; Site: left forearm; km8 01:00 Follow up: Response: No adverse reaction; Pain is decreased km8 03:30 Not Given (Patient Refused): morphineor iv 2 mg IVP once over 4 mins km8 03:40 Drug: Aspirin PO Chewable Tablet 81 mg PO once Route: PO; km8 03:42 Follow up: Response: Medication administered at discharge. km8 Disposition Summary: 11/18/23 03:25 Discharge Ordered Notes: Location: Home lila Problem: new lila Symptoms: have improved lila Condition: Fair lila Diagnosis - Unspecified symptoms and signs involving the musculoskeletal system lila - Peripheral vascular disease, unspecified lila - Low back pain - severe disc disease, lumbar lila - Sciatica lila - COPD/ Chronic obstructive pulmonary disease, unspecified lila Followup: lila - With: Private Physician - When: 2 - 3 days - Reason: Recheck today's complaints, Continuance of care, Re-evaluation by your physician Followup: lila - With: Idris Meneses MD - When: 2 - 3 days - Reason: Recheck today's complaints, Continuance of care, Re-evaluation by your physician Followup: lila - With: Fran Gonzalez MD - When: 2 - 3 days - Reason: Recheck today's complaints, Re-evaluation by your physician Followup: lila - With: Jose Lewis MD - When: 2 - 3 days - Reason: Recheck today's complaints, Re-evaluation by your physician Followup: lila - With: Ehsan Sandoval MD - When: 1 - 2 days - Reason: Recheck today's complaints, Re-evaluation by your physician Discharge Instructions: - Discharge Summary Sheet lila - Chronic Back Pain lila - Chronic Obstructive Pulmonary Disease lila - Fall Prevention in the Home, Adult lila - Lumbosacral Radiculopathy lila - Musculoskeletal Pain lila - Sciatica lila - Fall Prevention in the Home, Adult, [id number] lila - Sciatica, [id number] lila - Aspirin and Your Heart lila - Radicular Pain [facility] Forms: - Medication Reconciliation Form lila - Antibiotic Education lila - Prescription Opioid Use lila - Patient Portal Instructions [facility] - Leadership Thank You Letter [facility] Prescriptions: - acetaminophen-codeine 300-30 mg Oral tablet - take 1 tablet ORAL route every 4-6 hours; 20 tablet; Refills: 0, Product lila Selection Permitted - diclofenac sodium 25 mg Oral tablet, delayed release (enteric coated) - take 1 tablet ORAL route 3 times per day; 30 tablet; Refills: 0, Product [facility] Selection Permitted - dexamethasone 4 mg Oral tablet - take 1 tablet ORAL route daily; 5 tablet; Refills: 0, Product Selection [facility] Permitted - Valium 2 mg Oral Tablet - take 1 tablet ORAL route every 8 hours As needed; 20 tablet; Refills: 0, [facility] Product Selection Permitted Signatures: Dispatcher [employer] EDWali Fernández MD MD cha Marx, Katie, RN RN km8 Corrections: (The following items were deleted from the chart) 11/16 23:43 23:42 Chest Single View+RAD.RAD.BRZ ordered. EDMS EDMS 23:43 23:43 Femur Right+RAD.RAD.BRZ ordered. EDMS EDMS 23:43 23:43 Lower Extremity Artery Uni Ltd+US.RAD.BRZ ordered. EDMS EDMS 23:43 Extrem Venous W Compression Seth+US.RAD.BRZ ordered. EDMS EDMS 23:43 Spine Lumbar Wo Con+CT.RAD.BRZ ordered. EDMS EDMS
--- NOTE | 2023-11-18 03:25 | ER ---
Nurse's Notes [facility] Name: Carter Jiang Age: 87 yrs Sex: Male : 1935 Arrival Date: 11/17/2023 Time: 22:29 Bed 8 Private MD: Diagnosis: Unspecified symptoms and signs involving the musculoskeletal system;Peripheral vascular disease, unspecified;Low back pain-severe disc disease, lumbar;Sciatica;COPD/ Chronic obstructive pulmonary disease, unspecified Presentation: 11/16 23:08 Chief complaint: Patient states: right lateral thigh pain starting at 1700 today worse km8 with pressure on it. Coronavirus screen: Client denies travel out of the [place] in the last 14 days. Ebola Screen: No symptoms or risks identified at this time. Initial Sepsis Screen: Does the patient meet any 2 criteria? No. Patient's initial sepsis screen is negative. Does the patient have a suspected source of infection? No. Patient's initial sepsis screen is negative. Risk Assessment: Do you want to hurt yourself or someone else? Patient reports no desire to harm self or others. Onset of symptoms was November 17, 2023 at 17:00. 23:08 Method Of Arrival: Wheelchair km8 23:08 Acuity: GRADY 4 km8 Triage Assessment: 23:10 General: Appears uncomfortable, Behavior is cooperative, appropriate for age. Pain: km8 Complains of pain in lateral aspect of right thigh Pain currently is 9 out of 10 on a pain scale. Pain began gradually. EENT: No signs and/or symptoms were reported regarding the EENT system. Neuro: Level of Consciousness is awake, alert, obeys commands, Oriented to person, place, time, situation. Cardiovascular: Denies chest pain, shortness of breath, Patient's skin is warm and dry. Respiratory: Airway is patent Respiratory effort is even, unlabored, Respiratory pattern is regular, symmetrical. GI: No signs and/or symptoms were reported involving the gastrointestinal system. : No signs and/or symptoms were reported regarding the genitourinary system. Derm: No signs and/or symptoms reported regarding the dermatologic system. Skin is intact, is healthy with good turgor, Skin is dry, Skin is pink, warm \T\ dry. normal, Skin temperature is warm. Musculoskeletal: Range of motion: limited in bilateral legs. Historical: - Allergies: 23:10 No Known Allergies; km8 - Home Meds: 23:10 Unable to obtain [Active]; km8 - PMHx: 23:10 COPD; km8 - PSHx: 23:10 prostate; km8 - Immunization history:: Adult Immunizations up to date. - Infectious Disease History:: Denies. - Social history:: Smoking status: Patient/guardian denies using tobacco, but has a distant history of tobacco abuse, Patient/guardian denies using alcohol, street drugs. - Family history:: not pertinent. Screenin:15 [facility] ED Fall Risk Assessment (Adult) History of falling in the last 3 months, km8 including since admission No falls in past 3 months (0 pts) Confusion or Disorientation No (0 pts) Intoxicated or Sedated No (0 pts) Impaired Gait Yes (1 pt) Mobility Assist Device Used Yes (1 pt) Altered Elimination No (0 pt) Score/Fall Risk Level 0 - 2 = Low Risk Oriented to surroundings, Maintained a safe environment, Educated pt \T\ family on fall prevention, incl call for assistance when getting out of bed, Assessed \T\ reinforced patient's understanding of fall precautions. Abuse screen: Denies threats or abuse. Denies injuries from another. Nutritional screening: No deficits noted. Tuberculosis screening: No symptoms or risk factors identified. Assessment: 23:15 Reassessment: see triage assessment. 8 0504 00:15 Reassessment: Patient appears in no apparent distress at this time. No changes from [facility] previously documented assessment. Patient and/or family updated on plan of care and expected duration. Pain level reassessed. Patient is alert, oriented x 3, equal unlabored respirations, skin warm/dry/pink. 01:10 Reassessment: Patient appears in no apparent distress at this time. Patient and/or 8 family updated on plan of care and expected duration. Pain level reassessed. Patient is alert, oriented x 3, equal unlabored respirations, skin warm/dry/pink. Patient states feeling better. Patient states symptoms have improved. 02:11 Reassessment: Patient appears in no apparent distress at this time. No changes from [facility] previously documented assessment. 03:19 Reassessment: Patient and/or family updated on plan of care and expected duration. Pain tm6 level reassessed. Patient is alert, oriented x 3, equal unlabored respirations, skin warm/dry/pink. Vital Signs: 11/16 23:08 BP 125 / 66; Pulse 58; Resp 18; Temp 97.8(O); Pulse Ox 96% on R/A; Weight 74.84 kg (R); km8 Height 5 ft. 3 in. (R); Pain 9/10; 23:30 BP 135 / 68; Pulse 54; Resp 16; Pulse Ox 97% on R/A; 8 11/17 00:00 BP 182 / 79; Pulse 54; Resp 16; Pulse Ox 98% on R/A; 8 01:00 BP 160 / 81; Pulse 51; Resp 16; Pulse Ox 96% on R/A; [facility] 03:19 BP 169 / 74; Pulse 45; Pulse Ox 93% on R/A; Pain 5/10; tm6 11/16 23:08 Body Mass Index 29.23 (74.84 kg, 160.02 cm) [facility] 11/16 23:08 Pain Scale: Adult [facility] 03:19 Pain Scale: Adult [facility] Miguel Coma Score: 11/16 23:15 Eye Response: spontaneous(4). Motor Response: obeys commands(6). Verbal Response: [facility] oriented(5). Total: 15. ED Course: 22:34 Patient arrived in ED. jj6 22:43 Wali Mccallum MD is Attending Physician. [facility] 23:08 Blanca Carter, DIXIE is Primary Nurse. [facility] 23:10 Triage completed. [facility] 23:10 Arm band placed on right wrist. [facility] 23:15 Patient has correct armband on for positive identification. Bed in low position. Call [facility] light in reach. Side rails up X 1. Pulse ox on. NIBP on. 11/17 00:02 Basic Metabolic Panel Sent. 8 00:02 CBC with Diff Sent. 00:02 LFT's Sent. 00:02 Magnesium Sent. 00:02 NT PRO-BNP Sent. 00:02 PT-INR Sent. 00:02 Troponin HS Sent. 00:02 Initial lab(s) drawn, by or, sent to lab. EKG done, by ED staff, reviewed by Wali Mccallum MD. Inserted saline lock: 20 gauge in left forearm, using aseptic technique. Blood collected. 00:28 XRAY Chest (1 view) In Process Unspecified. EDMS 00:28 Femur Right XRAY In Process Unspecified. EDMS 00:30 CT Lumbar Spine Wo Con In Process Unspecified. EDMS 00:59 US Extremity Venous W Compression Seth In Process Unspecified. EDMS 00:59 Lower Extremity Arterial Bilat In Process Unspecified. EDMS 03:20 Urinalysis w/ reflexes Sent. tm6 03:24 Idris Meneses MD is Referral Physician. lila 03:24 Fran Gonzalez MD is Referral Physician. lila 03:24 Jose Lewis MD is Referral Physician. lila 03:25 Ehsan Sandoval MD is Referral Physician. [facility] 03:30 Provided Education on: d/c teaching. km8 03:30 No provider procedures requiring assistance completed. km8 03:42 IV discontinued, intact, bleeding controlled, No redness/swelling at site. Pressure km8 dressing applied. Administered Medications: 00:18 Drug: morphine IVP or IV 2 mg IVP once over 4 mins Route: IVP; Infused Over: 4 mins; km8 Site: left forearm; 01:00 Follow up: Response: No adverse reaction; Pain is decreased km8 00:18 Drug: Ondansetron IVP 2 mg IVP once; over 2 minutes Route: IVP; Site: left forearm; km8 01:00 Follow up: Response: No adverse reaction 8 00:18 Drug: Diazepam PO 5 mg PO once Route: PO; km8 03:29 Follow up: Response: No adverse reaction; Pain is decreased 8 00:18 Drug: Decadron - Dexamethasone IVP 10 mg IVP once Route: IVP; Site: left forearm; km8 01:00 Follow up: Response: No adverse reaction; Pain is decreased 8 00:18 Drug: Ketorolac IVP 15 mg IVP once Route: IVP; Site: left forearm; km8 01:00 Follow up: Response: No adverse reaction; Pain is decreased km8 03:30 Not Given (Patient Refused): morphineor iv 2 mg IVP once over 4 mins km8 03:40 Drug: Aspirin PO Chewable Tablet 81 mg PO once Route: PO; km8 03:42 Follow up: Response: Medication administered at discharge. km8 Medication: 11/16 23:15 VIS not applicable for this client. km8 Outcome: 11/17 03:25 Discharge ordered by . lila 03:41 Discharged to home via wheelchair, with family, km8 03:41 Condition: good 03:41 Discharge instructions given to patient, family, Instructed on discharge instructions, follow up and referral plans. medication usage, Demonstrated understanding of instructions, follow-up care, medications, Prescriptions given X 4, 03:42 Patient left the ED. km8 Signatures: Dispatcher [employer] EDFL Wali Mccallum MD MD cha Jeffries, Jennifer jj6 Blanca Carter, RN RN km8 Nidhi Rubin RN RN tm6
[2023-11-18] MEDS ORDERED: ASPIRIN 81 MG CHEWABLE TABLET ONE (03:31)
[2023-11-18 03:48] LABS: Specific Gravity 1.016 (1.005-1.030); Sqamous Epithelial None Seen /HPF (None Seen); Urine Bacteria None Seen /HPF (<20); Urine Bilirubin NEGATIVE (Negative); Urine Blood Negative (Negative); Urine Clarity Clear (Clear); Urine Color Light-Yellow (Yellow); Urine Crystals Unidentified Few /HPF (None Seen); Urine Culture Reflex Order NOT NEEDED; Urine Glucose NEGATIVE (Negative); Urine Ketones NEGATIVE (Negative); Urine Microscopic Reflex YN ORDER UMIC; Urine Nitrite NEGATIVE (Negative); Urine Protein TRACE (Negative); Urine RBC <5 /HPF (None Seen); Urine Urobilinogen Normal (Normal); Urine WBC <5 /HPF (<5); Urine Yeast (Budding) Trace /HPF (None Seen); Urine pH 6.5 (5.0-7.0)
[2023-11-18 15:05] VITALS: BP 169/74; TEMP 97.8; O2SAT 93
--- NOTE | 2023-11-18 22:17 | RAD REPORT ---
EXAM DESCRIPTION: US - Lower Extremity Arterial Bilat - 11/18/2023 12:57 am ADDENDUM #[address] Mccallum at 0332 hours central time on October 19, 2023. The results were ac knowledged and understood. Electronically signed by: Luis Felipe Banuelos MD 11/18/2023 04:35 AM CDT End of Addendum EXAM DESCRIPTION: Lower Extremity Arterial Bilat CLINICAL HISTORY: 87 years Male, PAIN COMPARISON: None. TECHNIQUE: Duplex Doppler was performed. Grayscale, color Doppler, and spectral Doppler analysis of the arteries of both lower extremities was performed. FINDINGS: There is occlusive, hypoechoic thrombus within the left proximal, middle, and distal super ficial femoral artery and left posterior tibial artery. There are monophasic waveforms in the left common femoral, popliteal, and dorsalis pedis arteries. There is an appearance of the right dorsalis pedis artery. Biphasic waveforms in the right common femoral, superficial femoral, and popliteal arteries noted. Right: Vessel peak systolic velocity (centimeters per sec ond) DRY PRIMER POWDER BLENDER 42 SFA 35 Popliteal 28 Posterior tibial 36 DPA -- Left: Vessel peak systolic velocity (centimeters per sec ond) DRY PRIMER POWDER BLENDER 118 SFA -- Popliteal 19 Posterior tibial -- DPA 32 IMPRESSION: 1. 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 2. Occluded appearance of the right dorsalis pedis artery. 3. Monophasic waveforms in the left lower extremity and biphasic waveforms in the right lower extremi ty which may be related to atherosclerotic disease or significant stenosis involving of the aorta or iliac arteries. Electronically signed by: Luis Felipe Banuelos MD 11/18/2023 03:25 AM CDT Due to temporary technical issues with the PACS/Fluency reporting system, reports are being signed by the in house radiologists without review as a courtesy to insure prompt reporting. The interpreting radiologist is fully responsible for the content of the report.
--- NOTE | 2023-11-18 22:24 | RAD REPORT ---
EXAM DESCRIPTION: US - Extrem Venous W Compress Seth - 11/18/2023 12:57 am CLINICAL HISTORY: The patient is 87 years old and is Male; PAIN TECHNIQUE: Real-time duplex ultrasound scan of the bilateral lower extremity veins integrating B-mod e two-dimensional vascular structure, Doppler spectral analysis, color flow Doppler imaging and Impre ssion. COMPARISON: No relevant prior studies available. FINDINGS: Right deep veins: Unremarkable. No DVT in the visualized common femoral, femoral, or p opliteal veins. The veins demonstrate normal color flow, are normally compressible where visualized , with normal phasic flow and/or augmentation response. Left deep veins: Unremarkable. No DVT in the visualized common femoral, femoral, or popliteal v eins. The veins demonstrate normal color flow, are normally compressible where visualized, with nor mal phasic flow and/or augmentation response. Soft tissues: 3.4 cm right popliteal fossa cyst. IMPRESSION: No evidence of DVT in the bilateral lower extremity veins. Electronically signed by: Kevin Sam MD 11/18/2023 02:57 AM CDT Due to temporary technical issues with the PACS/Fluency reporting system, reports are being signed by the in house radiologists without review as a courtesy to insure prompt reporting. The interpreting radiologist is fully responsible for the content of the report.
--- NOTE | 2023-11-18 22:25 | RAD REPORT ---
EXAM DESCRIPTION: RAD - Femur Right - 11/18/2023 12:26 am XR Right Femur, 2 Views CLINICAL HISTORY: The patient is 87 years old and is Male; PAIN TECHNIQUE: Frontal and lateral views of the right femur. COMPARISON: US Lower Extremity 11/18/2023 FINDINGS: BONES/JOINTS: Mild degenerative changes of the right hip. Degenerative changes of the right knee, greatest in the lateral compartment. Moderate-sized suprapatellar enthesophyte. No acute fracture. No subluxation or dislocation. SOFT TISSUES: See below. VASCULATURE: Vascular versus soft tissue calcifications demonstrated within the medial and lateral tissues of the right thigh. IMPRESSION: 1. No acute findings in the right femur. 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 If nonvascular, soft tissue calcification can be seen in the setting of previous trauma, syst emic inflammatory syndromes, or other etiologies. Clinical correlation recommended. 2. Degenerative changes of the right hip and right knee. Electronically signed by: Jatinder Walker MD 11/18/2023 02:46 AM CDT Due to temporary technical issues with the PACS/Fluency reporting system, reports are being signed by the in house radiologists without review as a courtesy to insure prompt reporting. The interpreting radiologist is fully responsible for the content of the report.
--- NOTE | 2023-11-18 22:26 | RAD REPORT ---
EXAM DESCRIPTION: RAD - Chest Single View - 11/18/2023 12:26 am CLINICAL HISTORY: The patient is 87 years old and is Male; COUGH TECHNIQUE: Frontal view of the chest. COMPARISON: No relevant prior studies available. FINDINGS: Lungs: 1 cm ovoid opacity overlying the right apex. Linear opacities in the mid left lung. 1.6 cm nodular opacity along the peripheral mid left l deni. Pleural space: Unremarkable. No pneumothorax. Heart: Unremarkable. Mediastinum: Unremarkable. Normal mediastinal contour. Bones/joints: No acute findings. Upper abdomen: Elevation of the left hemidiaphragm. IMPRESSION: 1. 1 cm ovoid opacity overlying the right apex. 2. Linear opacities in the mid left lung. 1.6 cm nodular opacity along the peripheral mid left lung . Electronically signed by: Kevin Sam MD 11/18/2023 02:00 AM CDT Due to temporary technical issues with the PACS/Fluency reporting system, reports are being signed by the in house radiologists without review as a courtesy to insure prompt reporting. The interpreting radiologist is fully responsible for the content of the report.
--- NOTE | 2023-11-18 22:49 | RAD REPORT ---
EXAM DESCRIPTION: CT - Spine Lumbar Wo Con - 11/18/2023 10:38 am CLINICAL HISTORY: PAIN TECHNIQUE: Axial computed tomography images of the lumbar spine without intravenous contrast. Sagi ttal and coronal reformatted images were created and reviewed. This CT exam was performed using one or more of the following dose reduction techniques: automated exposure control, adjustment of the mA and/or kV according to patient size, and/or use of iterative reconstruction technique. COMPARISON: No relevant prior studies available. FINDINGS: Vertebrae: There are 5 nonrib-bearing lumbar-type vertebral bodies. Levoscoliosis center ed at L3. No acute fracture or subluxation. Soft tissues: Unremarkable. Vasculature: Mild to moderate atherosclerotic disease. No abdominal aortic aneurysm. Kidneys and ureters: 2.7 cm left renal cyst. No follow-up imaging is recommended. JACR 2017; 273, Management of the Incidental Renal Mass on CT, [employer] 2020; [id number], Bosniak Classifica tion of Cystic Renal Masses, Version 2019. DISCS/SPINAL CANAL/NEURAL FORAMINA: T12-L1: Small to moderate anterior and lateral disc osteophytes. No significant disc herniation. Mi nimal bilateral facet arthropathy. No canal stenosis. Foramina are patent. L1-L2: Small to moderate anterior and lateral disc osteophytes. No significant disc herniation. Min imal bilateral facet arthropathy. No canal stenosis. Foramina are patent. L2-L3: Small to moderate anterior and right lateral disc osteophytes. Minimal broad-based disc bulg e. Mild to moderate right and mild left facet arthropathy. No canal stenosis. Foramina are patent. L3-L4: Minimal disc degeneration with vacuum disc phenomenon. Small anterior and moderate right lat eral disc osteophytes. 3 mm broad-based disc bulge. Moderate right and mild left facet arthropathy. T he central thecal sac measures 7 mm (AP). Moderate right foraminal narrowing without definite nerve r oot contact. L4-L5: Mild disc degeneration with vacuum disc phenomenon. Small anterior and moderate right latera l disc osteophytes. 5 mm broad-based disc bulge. Moderate bilateral facet arthropathy. Prominence of the dorsal epidural fat. The central thecal sac measures 4 mm (AP). Moderate bilateral foraminal narr owing with questionable contact on the exiting right L4 nerve root. L5-S1: Mild to moderate disc degeneration with vacuum disc phenomenon. Small to moderate anterior a nd lateral disc osteophytes. Severe left and moderate to severe right facet arthropathy. Moderate to severe left and [id number] right foraminal narrowing with possible contact on the exiting left L5 nerve root. IMPRESSION: 1. Multilevel degenerative changes as above. The central thecal sac is severely compro mised at L4-L5. 2. Other findings as above. Electronically signed by: Ct Claire MD 11/18/2023 02:23 AM CDT Due to temporary technical issues with the PACS/Fluency reporting system, reports are being signed by the in house radiologists without review as a courtesy to insure prompt reporting. The interpreting radiologist is fully responsible for the content of the report.
--- NOTE | 2023-11-20 14:44 | EKG ---
Test Date: 2023-11-17 Test Time: 23:55:52 Senior Scheduler: JOSEE MEASUREMENT RESULTS: Intervals: Rate: 54 WV: 112 QRSD: 122 QT: 434 QTc: 411 [place]: P: WV: 112 QRS: -18 T: 68 INTERPRETIVE STATEMENTS: Sinus bradycardia Anteroseptal infarct, age undetermined Abnormal ECG Compared to ECG 09/27/2022 09:47:33 Short W[place] interval no longer present Myocardial infarct finding still present Electronically Signed On 11-20-23 14:39:33 CDT by Fran Gonzalez
== END 2023-11-18 03:42 | disposition home or self-care (01) ==
LOC: ER 22:29
DX: R29.91 Unspecified symptoms and signs involving the musculoskeletal system (principal); I73.9 Peripheral vascular disease, unspecified; M51.86 Other intervertebral disc disorders, lumbar region; J44.9 Chronic obstructive pulmonary disease, unspecified
CPT/HCPCS: 93005; 85025; 81001; 80048; 36415; 83735; 85610; 80076; 84484; 83880; 72131; 71045; 73552; 93925; 93970; 96375; 96374; 99285; J1100; J2270; J2405

== ENCOUNTER 2024-02-13 07:00 | Day surgery (SDC) | payer OTHER ==
[2024-02-12 10:24] LABS: Absolute Eosinophils 0.4 K/uL (0-0.5); Absolute Lymphocytes (CBC) 1.4 K/uL (0.7-4.9); Absolute Monocytes 0.7 K/uL (0.1-1.3); Absolute Neutrophil 3.6 K/uL (1.8-8.0); Basophils % 0.6 % (0-1.3); Eosinophils % 6.6 % (0-4.4); Hematocrit 42.4 % (39.6-49.0); Hemoglobin 14.1 g/dL (13.6-17.9); Lymphocytes % 22.2 % (15.3-44.8); MCH 31.1 pg (27.0-35.0); MCHC 33.2 g/dL (32.0-36.0); MCV 93.7 fL (80-100); MPV 8.7 fL (7.6-11.3); Monocytes % 11.9 % (3.3-12.3); Neutrophils % 58.7 % (41.7-73.7); Platelets 177 thou/uL (152-406); RBC Red Blood Cell Count 4.52 M/uL (4.33-5.43); Red Cell Distribution Width 14.4 % (12.1-15.2)
[2024-02-12 10:33] LABS: PT Prothrombin Time 12.2 SECONDS (9.4-12.5); PTT, Activated Partial Thromb 32.9 SECONDS (24.3-36.9); Protime INR 1.09
[2024-02-12 10:35] LABS: Anion Gap 5.8 mEq/L (5.0-15.0); Potassium 3.8 mEq/L (3.5-5.1)
--- NOTE | 2024-02-12 17:04 | EKG ---
Test Date: 2024-02-12 Test Time: 10:14:30 Client Experience Consultant: CROW MEASUREMENT RESULTS: Intervals: Rate: 51 MD: 110 QRSD: 122 QT: 470 QTc: 433 [place]: P: MD: 110 QRS: -57 T: 81 INTERPRETIVE STATEMENTS: Sinus bradycardia with short MD Left axis deviation Anteroseptal infarct, age undetermined Abnormal ECG Compared to ECG 12/21/2023 04:56:07 Myocardial infarct finding now present Electronically Signed On 02-12-24 17:03:38 CDT by Fran Gonzalez
[2024-02-13] MEDS ORDERED: NA CHLORIDE 0.9% 500 ML ONE (07:25)
[2024-02-13] MEDS ORDERED: LIDOCAINE 1% 20 ML MDV ONE (07:35)
[2024-02-13] MEDS ORDERED: HEPA 1000U/500MLS 2,000 UNIT/1,000 ML BAG IV ONE (07:35)
[2024-02-13] MEDS ORDERED: MIDAZOLAM HCL 2 MG/2 ML INJ ONE (07:36)
[2024-02-13] MEDS ORDERED: FENTANYL CITR 100 MCG/2 ML ONE (07:36)
[2024-02-13] MEDS ORDERED: ATROPINE SULF 1 MG/10 ML SYR IV ONE (07:36)
[2024-02-13] MEDS ORDERED: TICAGRELOR 90 MG TABLET PO ONE (07:36)
[2024-02-13] MEDS ORDERED: HEPARIN 5000 UNIT/ML 1 ML VIAL ONE (07:36)
[2024-02-13] MEDS ORDERED: HEPARIN 10,000 UNIT/10 ML VIAL IV ONE (07:37)
[2024-02-13] MEDS ORDERED: CLOPIDOGREL 75 MG TABLET ONE (07:37)
[2024-02-13] MEDS ORDERED: ASPIRIN 325 MG TAB ONE (07:37)
[2024-02-13 09:20] VITALS: TEMP 97.5
[2024-02-13] MEDS: HYDRALAZINE HCL 20 MG/ML VIAL IV ONE (10:36)
[2024-02-13] MEDS ORDERED: HYDRALAZINE HCL 20 MG/ML VIAL ONE (10:39)
[2024-02-13 12:31] VITALS: BP 155/64; O2SAT 98
--- NOTE | 2024-02-14 20:34 | OP ---
Date of Procedure: 02/13/2024 Surgeon: Karthikeyan Singh Procedures Performed: 1.Left heart catheterization. 2.Selective angiogram. 3.Peripheral angiogram. Indication For Procedure: Shortness of breath, abnormal stress test, and claudication with abnormal ABIs. Access: Right radial, closed by TR band. Complications: None. Estimated Blood Loss: Less than 50 cc. Sedation Time: 30 minutes with 1 of Versed and 25 of fentanyl. Description Of Procedure: After risks, and benefits, and alternatives were explained to the patient, patient agreed to proceed with procedure and signed informed consent. The patient was brought back to the chemical laboratory scientist, prepped and draped in a sterile fashion. Time-out was performed. Sedation was admi nistered. Next, an ultrasound-guided right radial access was obtained. [place] 4.0 catheter was advan cheryle over a J-wire to the LV cavity. LVEDP was obtained. Pullback did not show any gradient. Same c atheter was used for selective angiogram of the left and right coronary systems. That catheter was l ater exchanged for a pigtail catheter down to the lower abdominal aorta where the lower abdominal ang iogram and the runoff was done and catheter was removed and a J-wire and sheath were removed. TR ban d was applied and the patient was moved back to recovery in stable condition. Findings: 1.Left main; ostial 30% to 40% disease. 2.LAD; mild luminal irregularities. 3.Left circ; mild luminal irregularities. 4.RCA; proximal 30% disease and mid ectatic. Then RPDA, proximal 50% disease and mild luminal irreg ularities. Lower Abdominal Angiogram Findings: 1.Lower abdominal aorta is patent. 2.Right common iliac artery diffuse, calcified, 70% disease. 3.Right external iliac artery had calcified diffuse 80% disease. 4.Right common femoral artery is normal. 5.Right SFA mid to distal 80% disease. 6.Right posterior tibial is patent. 7.Right peroneal diffuse severe disease. 8.Right anterior tibial is occluded. 9.One runoff distally on the right side. 10.Left common iliac artery/external iliac artery patent. 11.Left common femoral artery diffuse calcified 70% to 90% disease. 12.Left SFA mid 100% occluded with collaterals into distal SFA. 13.Left peroneal is patent. 14.Left anterior tibial/posterior tibial is occluded. 15.One runoff on the left side. Assessment And Plan: 1.Significant right iliac/common femoral artery disease. 2.Significant left common femoral artery/SFA disease. 3.Significant bilateral below-knee disease, one runoff distally bilaterally. 4.Mild coronary artery disease. 5.We will refer to Vascular Surgery to evaluate for intervention. 6.Continue aggressive medical treatment for coronary artery disease. KATIE/DEMETRIA Voice ID: [id number] Report ID: [id number]
== END 2024-02-13 12:35 | disposition home or self-care (01) ==
LOC: CCL 07:00
PROVIDERS: ATTEND Internal Medicine Interventional Cardiology
DX: I70.213 Atherosclerosis of native arteries of extremities with intermittent claudication, bilateral legs (principal); I70.92 Chronic total occlusion of artery of the extremities; I25.10 Atherosclerotic heart disease of native coronary artery without angina pectoris; I10 Essential (primary) hypertension; E78.5 Hyperlipidemia, unspecified; J44.1 Chronic obstructive pulmonary disease with (acute) exacerbation; N40.0 Benign prostatic hyperplasia without lower urinary tract symptoms; Z87.891 Personal history of nicotine dependence; Z79.899 Other long term (current) drug therapy
CPT/HCPCS: 93005; 85025; 80048; 36415; 85610; 82947; 85730; 75630; 93458; 76937; C1893; Q9966; J1644; J0360; J2001; J2250; J3010; J7040; 36200; 99152; 99153; J0461

== ENCOUNTER 2024-02-18 22:34 | Emergency (ER) | payer OTHER ==
[2024-02-18] MEDS ORDERED: MORPHINE 4 MG/ML SYR ONE (23:08)
[2024-02-18] MEDS ORDERED: ONDANSETRON 4 MG/2 ML VIAL ONE (23:08)
[2024-02-18 23:53] LABS: ALT/SGPT 20 U/L (16-61); AST/SGOT 20 U/L (15-37); Albumin 3.2 g/dL (3.4-5.0); Albumin/Globulin Ratio 0.8 (1.1-1.8); Alkaline Phosphatase 66 U/L (45-117); Anion Gap 7.8 mEq/L (5.0-15.0); BUN Blood Urea Nitrogen 16 mg/dL (7-18); Bicarbonate 28 mEq/L (21-32); Bilirubin Total 0.4 mg/dL (0.2-1.0); Globulin 3.8 g/dL (2.3-3.5); Glomerular Filtration Rate 51 ml/min (=/>90); Glucose Level 145 mg/dL (74-106); Potassium 3.8 mEq/L (3.5-5.1); Sodium Level 143 mEq/L (136-145)
[2024-02-18 23:55] LABS: PT Prothrombin Time 13.2 SECONDS (9.4-12.5); Protime INR 1.18
[2024-02-18 23:56] LABS: Bilirubin Direct < 0.2 mg/dL (0-0.2); Bilirubin Indirect, Calculated 0.2 mg/dL (0.2-0.8)
[2024-02-18 23:58] LABS: Absolute Eosinophils 0.6 K/uL (0-0.5); Absolute Monocytes 0.7 K/uL (0.1-1.3); Absolute Neutrophil 4.5 K/uL (1.8-8.0); Basophils % 0.5 % (0-1.3); Eosinophils % 8.2 % (0-4.4); Hematocrit 40.9 % (39.6-49.0); Hemoglobin 13.5 g/dL (13.6-17.9); Lymphocytes % 15.4 % (15.3-44.8); MCH 31.1 pg (27.0-35.0); MCHC 33.1 g/dL (32.0-36.0); MCV 93.9 fL (80-100); MPV 9.3 fL (7.6-11.3); Monocytes % 9.6 % (3.3-12.3); Neutrophils % 66.3 % (41.7-73.7); Platelets 175 thou/uL (152-406); RBC Red Blood Cell Count 4.35 M/uL (4.33-5.43); Red Cell Distribution Width 14.3 % (12.1-15.2)
[2024-02-19] MEDS ORDERED: HYDROCODONE/APAP 10/325 TAB ONE (01:35)
--- NOTE | 2024-02-19 01:49 | ER ---
Nurse's Notes [facility] Name: Carter Jiang Age: 88 yrs Sex: Male : 1935 Arrival Date: 02/18/2024 Time: 22:34 Bed 7 Private MD: Diagnosis: Nontraumatic hematoma of soft tissue;Postoperative hematoma right radial wrist, right wrist hematoma after the left heart cath Presentation: 02/17 22:49 Chief complaint: Patient states: Heart cath done through radial artery. Has vc1 been pain free until tonight. Now entire right arm hurts and the bruise has doubled in size and now the arm is swollen. Coronavirus screen: Client denies travel out of the [place] in the last 14 days. At this time, the client does not indicate any symptoms associated with coronavirus-19. Ebola Screen: Patient negative for fever greater than or equal to 101.5 degrees Fahrenheit, and additional compatible Ebola Virus Disease symptoms Patient denies exposure to infectious person. Patient denies travel to an Ebola-affected area in the 21 days before illness onset. No symptoms or risks identified at this time. Initial Sepsis Screen: Does the patient meet any 2 criteria? No. Patient's initial sepsis screen is negative. Does the patient have a suspected source of infection? No. Patient's initial sepsis screen is negative. Risk Assessment: Do you want to hurt yourself or someone else? Patient reports no desire to harm self or others. Onset of symptoms was February 18, 2024. Care prior to arrival: None. Activity prior to arrival: None. Mechanism of Injury: radial heart cath. Transition of care: patient was not received from another setting of care. 22:49 Method Of Arrival: Wheelchair vc1 22:49 Acuity: GRADY 3 vc1 Triage Assessment: 22:54 General: Appears in no apparent distress. uncomfortable, well groomed, well developed, vc1 Behavior is calm, cooperative, appropriate for age. Pain: Complains of pain in right wrist Pain radiates to right arm Pain currently is 8 out of 10 on a pain scale. Quality of pain is described as throbbing, Pain began earlier today. Neuro: Level of Consciousness is awake, alert, obeys commands. Cardiovascular: Patient's skin is warm and dry. Respiratory: Airway is patent Respiratory effort is even, unlabored, Respiratory pattern is regular, symmetrical. Derm: Bruising that is dark purple, on right arm. Musculoskeletal: No deficits noted. No signs and/or symptoms reported regarding the musculoskeletal system. Historical: - Allergies: 22:52 No Known Allergies; vc1 - PMHx: 22:52 COPD; vc1 - PSHx: 22:52 prostate; vc1 - Immunization history:: Adult Immunizations up to date, Client reports receiving the 2nd dose of the Covid vaccine. - Infectious Disease History:: Denies. - Social history:: Smoking status: Patient/guardian denies using tobacco, the patient reports quitting approximately 24 years ago. - Family history:: not pertinent. Screenin:54 [facility] ED Fall Risk Assessment (Adult) History of falling in the last 3 months, vc1 including since admission No falls in past 3 months (0 pts) Confusion or Disorientation No (0 pts) Intoxicated or Sedated No (0 pts) Impaired Gait Yes (1 pt) Mobility Assist Device Used No (0 pt) Altered Elimination No (0 pt) Score/Fall Risk Level 0 - 2 = Low Risk Oriented to surroundings, Maintained a safe environment, Educated pt \T\ family on fall prevention, incl call for assistance when getting out of bed. Abuse screen: Denies threats or abuse. Nutritional screening: No deficits noted. Tuberculosis screening: No symptoms or risk factors identified. Assessment: 23:00 General: Appears in no apparent distress. uncomfortable, Behavior is calm, cooperative, jw7 appropriate for age. Pain: Complains of pain in right wrist Pain radiates to right arm Pain currently is 8 out of 10 on a pain scale. Quality of pain is described as throbbing, Pain began gradually, Is continuous. Neuro: Level of Consciousness is awake, alert, obeys commands, Oriented to person, place, time, situation, Appropriate for age. Cardiovascular: Heart tones S1 S2 present Capillary refill < 3 seconds Clubbing of nail beds is absent JVD is absent Patient's skin is warm and dry. Respiratory: Airway is patent Trachea midline Respiratory effort is even, unlabored, Respiratory pattern is regular, symmetrical, Parent/caregiver reports the patient having shortness of breath. GI: Abdomen is flat, non-distended, Bowel sounds present X 4 quads. Abd is soft and non tender X 4 quads. : No deficits noted. No signs and/or symptoms were reported regarding the genitourinary system. EENT: No deficits noted. No signs and/or symptoms were reported regarding the EENT system. Derm: Skin is intact, is healthy with good turgor, Skin is dry, Skin is normal, Skin temperature is warm. Musculoskeletal: Circulation, motion, and sensation intact. Range of motion: intact in all extremities. 02/18 00:00 Reassessment: Patient appears in no apparent distress at this time. No changes from [facility] previously documented assessment. Patient and/or family updated on plan of care and expected duration. Pain level reassessed. Patient is alert, oriented x 3, equal unlabored respirations, skin warm/dry/pink. 01:00 Reassessment: Patient appears in no apparent distress at this time. No changes from [facility] previously documented assessment. Patient and/or family updated on plan of care and expected duration. Pain level reassessed. Patient is alert, oriented x 3, equal unlabored respirations, skin warm/dry/pink. 02:00 Reassessment: Patient appears in no apparent distress at this time. Patient and/or jw7 family updated on plan of care and expected duration. Pain level reassessed. Patient is alert, oriented x 3, equal unlabored respirations, skin warm/dry/pink. Patient states symptoms have improved. Vital Signs: 02/17 22:49 Weight 70.31 kg; Height 5 ft. 3 in. ; Pain 8/10; vc1 22:57 BP 111 / 64; Pulse 66; Resp 12; Temp 97.5; Pulse Ox 96% ; vc1 02/18 00:00 BP 127 / 70; Pulse 55; Resp 15 S; Pulse Ox 92% on R/A; jw7 01:00 BP 115 / 75; Pulse 55; Resp 15 S; Pulse Ox 93% on R/A; jw7 02:00 BP 130 / 88; Pulse 56; Resp 14 S; Pulse Ox 95% on R/A; jw7 02/17 22:49 Body Mass Index 27.46 (70.31 kg, 160.02 cm) vc1 02/17 22:49 Pain Scale: Adult vc1 Brick Coma Score: 01:45 Eye Response: spontaneous(4). Motor Response: obeys commands(6). Verbal Response: sp4 oriented(5). Total: 15. ED Course: 02/17 22:41 Patient arrived in ED. gm2 22:42 John Ayoub MD is Attending Physician. sp4 22:52 Triage completed. vc1 22:53 Arm band placed on left wrist. vc1 23:24 Initial lab(s) drawn, by me, sent to lab. Inserted saline lock: 20 gauge in left jw7 forearm, using aseptic technique. Blood collected. Flushed with 10 mL NS. 23:27 Patient has correct armband on for positive identification. Bed in low position. Call jw7 light in reach. Side rails up X2. Provided Education on: use of call light. 23:58 UPPER EXTREMITY VENOUS UNILATE In Process Unspecified. EDMS 23:58 Upper Ext Artery Uni Seth In Process Unspecified. EDMS 02/18 01:48 Fran Gonzalez MD is Referral Physician. sp4 02:06 No provider procedures requiring assistance completed. IV discontinued, intact, jw7 bleeding controlled, No redness/swelling at site. Pressure dressing applied. Administered Medications: 02/17 23:25 Drug: morphine IVP or IV 4 mg IVP once over 4 mins Route: IVP; Infused Over: 4 mins; jw7 Site: left forearm; 02/18 01:41 Follow up: Response: No adverse reaction; Marked relief of symptoms jw7 02/17 23:25 Drug: Ondansetron IVP 4 mg IVP once; over 2 minutes Route: IVP; Site: left forearm; jw7 02/18 01:40 Follow up: Response: No adverse reaction; Marked relief of symptoms jw7 01:40 Drug: Stanton PO 10 mg-325 mg 1 tabs PO once Route: PO; jw7 02:06 Follow up: Response: No adverse reaction; Medication administered at discharge. jw7 Medication: 02/17 22:54 VIS not applicable for this client. vc1 Outcome: 02/18 01:49 Discharge ordered by . sp4 02:06 Discharged to home via wheelchair, with family, jw7 02:06 Condition: stable 02:06 Discharge instructions given to patient, family, Instructed on discharge instructions, follow up and referral plans. medication usage, Demonstrated understanding of instructions, follow-up care, medications, Prescriptions given X 1, 02:06 Patient left the ED. jw7 Signatures: Dis[facility] Karen Campbell RN RN vc1 Joy Piña RN RN jw7 John Ayoub MD MD sp4 Amanda Sanabria gm2 Corrections: (The following items were deleted from the chart) 02/17 22:53 22:52 [place] Meds: None; vc1 vc1
--- NOTE | 2024-02-19 01:49 | EDPHYS ---
Physician Documentation [facility] Name: Carter Jiang Age: 88 yrs Sex: Male : 1935 Arrival Date: 02/18/2024 Time: 22:34 Bed 7 Private MD: ED Physician John Ayoub HPI: 02/17 22:42 This 88 yrs old Male presents to ER via Unassigned with complaints of Gen sp4 complaint . 02/18 01:42 This 88 yrs old Male presents to ER via Wheelchair with complaints of Arm sp4 Problem, ARM SWELLING, Arm Pain. 01:43 Patient underwent left heart catheterization through right radial artery on 02/13/2024. sp4 Patient presents with hematoma over right wrist palmar side associated with pain to the right wrist and pain tracking up the arm. . Historical: - Allergies: 02/17 22:52 No Known Allergies; vc1 - PMHx: 22:52 COPD; vc1 - PSHx: 22:52 prostate; vc1 - Immunization history:: Adult Immunizations up to date, Client reports receiving the 2nd dose of the Covid vaccine. - Infectious Disease History:: Denies. - Social history:: Smoking status: Patient/guardian denies using tobacco, the patient reports quitting approximately 24 years ago. - Family history:: not pertinent. ROS: 02/18 01:43 Constitutional: Negative for fever, chills, and weight loss, positive right wrist right sp4 forearm pain positive hematoma to the right wrist positive pain tracking up the right arm All other systems are negative, Exam: 01:45 Constitutional: This is a well developed, well nourished patient who is awake, alert, sp4 and in no acute distress. Head/Face: Normocephalic, atraumatic. Eyes: Pupils equal round and reactive to light, extra-ocular motions intact. Lids and lashes normal. Conjunctiva and sclera are not injected. Cornea within normal limits. Periorbital areas with no swelling, redness, or edema. ENT: Nares patent. No nasal discharge, no septal abnormalities noted. Tympanic membranes are normal and external auditory canals are clear. Oropharynx with no redness, swelling, or masses, exudates, or evidence of obstruction, uvula midline. Mucous membranes moist. Neck: Trachea midline, no thyromegaly or masses palpated, and no cervical lymphadenopathy. Supple, full range of motion without nuchal rigidity, or vertebral point tenderness. Chest/axilla: Normal chest wall appearance and motion. Nontender with no deformity. No lesions are appreciated. Cardiovascular: Regular rate and rhythm with a normal S1 and S2. No gallops, murmurs, or rubs. Normal PMI, no JVD. No pulse deficits. Respiratory: Lungs have equal breath sounds bilaterally, clear to auscultation and percussion. No rales, rhonchi or wheezes noted. No increased work of breathing, no retractions or nasal flaring. Abdomen/GI: Soft, with normal bowel sounds. No distension or tympany. No guarding or rebound. No evidence of tenderness throughout. Back: No spinal tenderness. No costovertebral tenderness. Skin: Warm, dry with normal turgor. Normal color with no rashes, no lesions, and no evidence of cellulitis. MS/ Extremity: Pulses equal, no cyanosis. Neurovascular intact. Full, normal range of motion. There is significant hematoma right wrist palmar side of the wrist also hematoma tracking up the arm however hematoma appears old with purplish to greenish discoloration. No Sign of compartment syndrome, normal peripheral pulses Neuro: Awake and alert, GCS 15, oriented to person, place, time, and situation. Cranial nerves II-XII grossly intact. Motor strength 5/5 in all extremities. Sensory grossly intact. Psych: Awake, alert, with orientation to person, place and time. Behavior, mood, and affect are within normal limits Vital Signs: 02/17 22:49 Weight 70.31 kg; Height 5 ft. 3 in. ; Pain 8/10; vc1 22:57 BP 111 / 64; Pulse 66; Resp 12; Temp 97.5; Pulse Ox 96% ; vc1 02/18 00:00 BP 127 / 70; Pulse 55; Resp 15 S; Pulse Ox 92% on R/A; jw7 01:00 BP 115 / 75; Pulse 55; Resp 15 S; Pulse Ox 93% on R/A; jw7 02:00 BP 130 / 88; Pulse 56; Resp 14 S; Pulse Ox 95% on R/A; jw7 02/17 22:49 Body Mass Index 27.46 (70.31 kg, 160.02 cm) vc1 02/17 22:49 Pain Scale: Adult vc1 [place] Coma Score: 01:45 Eye Response: spontaneous(4). Motor Response: obeys commands(6). Verbal Response: sp4 oriented(5). Total: 15. Procedures: 01:35 Splinting: Splint applied to dorsal aspect of right forearm, right wrist and right hand sp4 using wrist splint, Velcro wrist splint . applied by myself. Examined by me, post splint application: neurovascular intact, 2+ distal pulses palpable, brisk capillary refill noted, Patient tolerated well. MDM: 02/17 23:18 Patient medically screened. sp4 02/18 01:29 ED course: EXAM DESCRIPTION: UPPER EXTREMITYVENOUS UNILATEAL CLINICAL HISTORY: Right sp4 arm pain and swelling. COMPARISON: US Upper extremity arteries 02/18/2024, 11:34 PM (Image only). TECHNIQUE: Grayscale, color Doppler, and spectral Doppler imaging of the right upper extremity venous system. FINDINGS: Normal compressibility and flow identified in the right internal jugular, subclavian, axillary, brachial, basilic, radial, and ulnar veins. Cephalic vein not definitely identified. No echogenic thrombus identified. No soft tissue abnormalities. IMPRESSION: No evidence of right upper extremity DVT. Electronically signed by: Paddy Mensah DO 02/19/2024 12:27 AM. ED course: Upper Ext Artery Uni Seth INDICATION: Right Arm Arterial ultrasound - order as Arterial Doppler TECHNIQUE: Mcclure scale, color and spectral Doppler ultrasound exam was performed of the right upper extremity arteries. COMPARISON: None. FINDINGS: RIGHT UPPER EXTREMITY Peak velocity Waveforms Subclavian artery: 116.4 cm/s triphasic Axillary artery: 83.3 cm/s triphasic Brachial artery: 126.2 cm/s triphasic Radial artery: 51.8 cm/s biphasic Ulnar artery: 55.9 cm/s biphasic Visualized right common carotid artery is patent with biphasic spectral waveform. IMPRESSION: No evidence of hemodynamically significant arterial stenosis within the visualized right upper extremity.. 01:35 Differential Diagnosis Hematoma, arterial occlusion, deep venous thrombosis. Data sp4 reviewed: vital signs, nurses notes, old medical records, lab test result(s), radiologic studies, ultrasound. 01:45 Consideration of Admission/Observation Escalation of care including sp4 admission/observation considered. ED course: Patient has no sign of compartment syndrome, ultrasound revealed patent arterial flow and no sign of DVT. Patient can follow-up with special delivery clerk in the morning at the office for repeat evaluation of his right wrist hematoma , better at this time stable for discharge home. Right wrist splint was applied to remind patient not to move his right hand. Advised Right wrist splint for two weeks. . 02/17 22:59 Order name: Basic Metabolic Panel; Complete Time: 01:28 sp4 02/17 22:59 Order name: CBC with Diff; Complete Time: : sp4 02/17 22:59 Order name: LFT's; Complete Time: : sp4 02/17 22:59 Order name: PT-INR; Complete Time: : sp4 02/17 23:11 Order name: UPPER EXTREMITY VENOUS UNILATE EDMS 02/17 23:13 Order name: Upper Ext Artery Uni Seth EDMS 02/17 22:59 Order name: IV Saline Lock; Complete Time: 23:25 sp4 02/17 22:59 Order name: Labs collected and sent; Complete Time: 23:25 sp4 Administered Medications: 02/17 23:25 Drug: morphine IVP or IV 4 mg IVP once over 4 mins Route: IVP; Infused Over: 4 mins; jw7 Site: left forearm; 02/18 01:41 Follow up: Response: No adverse reaction; Marked relief of symptoms jw7 02/17 23:25 Drug: Ondansetron IVP 4 mg IVP once; over 2 minutes Route: IVP; Site: left forearm; jw7 02/18 01:40 Follow up: Response: No adverse reaction; Marked relief of symptoms jw7 01:40 Drug: Severn PO 10 mg-325 mg 1 tabs PO once Route: PO; jw7 02:06 Follow up: Response: No adverse reaction; Medication administered at discharge. jw7 Disposition Summary: 02/19/24 01:49 Discharge Ordered Notes: Location: Home sp4 Problem: new sp4 Symptoms: have improved sp4 Condition: Stable sp4 Diagnosis - Nontraumatic hematoma of soft tissue sp4 - Postoperative hematoma right radial wrist, right wrist hematoma after the left sp4 heart cath Followup: sp4 - With: Fran Gonzalez MD - When: 24 Hours - Reason: Recheck today's complaints Discharge Instructions: - Discharge Summary Sheet sp4 - Hematoma, [id number] sp4 Forms: - Patient Portal Instructions sp4 Prescriptions: - tramadol 100 mg Oral Tablet, Extended Release 24 hr - take 1 tablet ORAL route every 8 hours PRN pain; 20 tablet; Refills: 0, Product sp4 Selection Permitted Signatures: Dispatcher [employer] EDKaren Ward, RN RN vc1 Joy Piña RN RN jw7 John Ayoub MD MD sp4 Corrections: (The following items were deleted from the chart) 02/17 22:53 22:52 Home Meds: None; vc1 vc1 22:59 22:59 BASIC METABOLIC PANEL+C.LAB.BRZ ordered. EDMS EDMS 22:59 22:59 CBC+H.LAB.BRZ ordered. EDMS EDMS 22:59 22:59 HEPATIC FUNCTION+C.LAB.BRZ ordered. EDMS EDMS 22:59 22:59 PROTIME (+INR)+COAG.LAB.BRZ ordered. EDMS EDMS 23:11 23:04 Extremity Venous Uni Ltd+US.RAD.BRZ ordered. EDMS EDMS 23:13 23:05 Extrmty Nonvasular Limited+US.RAD.BRZ ordered. EDMS EDMS
[2024-02-19 07:48] VITALS: TEMP 97.5
[2024-02-19 07:51] VITALS: BP 130/88; O2SAT 95
--- NOTE | 2024-02-19 13:48 | RAD REPORT ---
EXAM DESCRIPTION: US - Upper Ext Artery Uni Seth - 02/18/2024 11:57 pm CLINICAL HISTORY: Right Arm Arterial ultrasound - order as Arterial Doppler TECHNIQUE: Mcclure scale, color and spectral Doppler ultrasound exam was performed of the right upper e xtremity arteries. COMPARISON: None. FINDINGS: RIGHT UPPER EXTREMITY Peak velocity Waveforms Subclavian artery: 116.4 cm/s triphasic Axillary artery: 83.3 cm/s triphasic Brachial artery: 126.2 cm/s triphasic Radial artery: 51.8 cm/s biphasic Ulnar artery: 55.9 cm/s biphasic Visualized right common carotid artery is patent with biphasic spectral waveform. IMPRESSION: No evidence of hemodynamically significant arterial stenosis within the visualized right upper extremity. Electronically signed by: Funmi King MD 02/19/2024 12:23 AM CDT Due to temporary technical issues with the PACS/Fluency reporting system, reports are being signed by the in house radiologist without review as a courtesy to ensure prompt reporting. The interpreting r adiologist is fully responsible for the content of the report.
--- NOTE | 2024-02-19 13:49 | RAD REPORT ---
EXAM DESCRIPTION: US - UPPER EXTREMITY VENOUS UNILATE - 02/18/2024 11:57 pm CLINICAL HISTORY: Right arm pain and swelling. COMPARISON: US Upper extremity arteries 02/18/2024, 11:34 PM (Image only). TECHNIQUE: Grayscale, color Doppler, and spectral Doppler imaging of the right upper extremity venou s system. FINDINGS: Normal compressibility and flow identified in the right internal jugular, subclavian, axil manuela, brachial, basilic, radial, and ulnar veins. Cephalic vein not definitely identified. No echog enic thrombus identified. No soft tissue abnormalities. IMPRESSION: No evidence of right upper extremity DVT. Electronically signed by: Paddy Mensah DO 02/19/2024 12:27 AM CDT RP [id number] Due to temporary technical issues with the PACS/Fluency reporting system, reports are being signed by the in house radiologist without review as a courtesy to ensure prompt reporting. The interpreting r adiologist is fully responsible for the content of the report.
== END 2024-02-19 02:06 | disposition home or self-care (01) ==
LOC: ER 22:34
DX: I97.630 Postprocedural hematoma of a circulatory system organ or structure following a cardiac catheterization (principal); M79.81 Nontraumatic hematoma of soft tissue
CPT/HCPCS: 85025; 80048; 36415; 85610; 80076; 93971; 93931; 96375; 96374; 99284; J2405

== ENCOUNTER 2024-04-05 22:27 | Inpatient (IN) | payer OTHER ==
[2024-04-06 00:04] LABS: Absolute Eosinophils 0.1 K/uL (0-0.5); Absolute Monocytes 0.8 K/uL (0.1-1.3); Absolute Neutrophil 4.8 K/uL (1.8-8.0); Basophils % 0.2 % (0-1.3); Eosinophils % 1.9 % (0-4.4); Hematocrit 25.7 % (39.6-49.0); Hemoglobin 8.8 g/dL (13.6-17.9); Lymphocytes % 14.5 % (15.3-44.8); MCH 31.7 pg (27.0-35.0); MCV 93.1 fL (80-100); MPV 8.9 fL (7.6-11.3); Monocytes % 12.4 % (3.3-12.3); Nucleated Red Blood Cells % 0.1 % (0-0); Platelets 124 thou/uL (152-406); RBC Red Blood Cell Count 2.77 M/uL (4.33-5.43)
[2024-04-06] MEDS ORDERED: ALBUTEROL 2.5 MG/3 ML NEB SOL ONE (00:05)
[2024-04-06] MEDS ORDERED: IPRATROPIUM BROM 0.5MG/2.5ML ONE (00:05)
[2024-04-06 00:09] LABS: PT Prothrombin Time 15.6 SECONDS (9.4-12.5); Protime INR 1.41
[2024-04-06 00:16] LABS: SARS-CoV-2 Antigen CONTROL BLUE LINE VIS/BG OK; SARS-CoV-2 Antigen Rapid Res Negative (Negative)
[2024-04-06 00:24] LABS: ALT/SGPT 15 U/L (16-61); AST/SGOT 18 U/L (15-37); Albumin 2.7 g/dL (3.4-5.0); Albumin/Globulin Ratio 0.8 (1.1-1.8); Alkaline Phosphatase 55 U/L (45-117); Anion Gap 8.8 mEq/L (5.0-15.0); BUN Blood Urea Nitrogen 19 mg/dL (7-18); Bicarbonate 27 mEq/L (21-32); Bilirubin Total 0.3 mg/dL (0.2-1.0); Globulin 3.6 g/dL (2.3-3.5); Glomerular Filtration Rate 68 ml/min (=/>90); Glucose Level 162 mg/dL (74-106); Magnesium 2.4 mg/dL (1.6-2.4); NT PRO-BNP 406 pg/mL (<450); Potassium 3.8 mEq/L (3.5-5.1); Protein, Total 6.3 g/dL (6.4-8.2); Sodium Level 141 mEq/L (136-145)
[2024-04-06 00:37] LABS: Bilirubin Direct < 0.2 mg/dL (0-0.2); Bilirubin Indirect, Calculated 0.1 mg/dL (0.2-0.8)
[2024-04-06 00:42] LABS: Troponin High Sensitivity 67.2 pg/mL (<58.9)
[2024-04-06] MEDS ORDERED: ONDANSETRON 4 MG/2 ML VIAL ONE (01:23)
[2024-04-06] MEDS ORDERED: MORPHINE 4 MG/ML SYR ONE (01:23)
[2024-04-06 02:37] LABS: Calcium Oxalate Crystals- Ur Few /HPF (None Seen); Specific Gravity 1.028 (1.005-1.030); Sqamous Epithelial <5 /HPF (None Seen); Urine Bacteria None Seen /HPF (<20); Urine Bilirubin NEGATIVE (Negative); Urine Blood Negative (Negative); Urine Clarity Clear (Clear); Urine Color Yellow (Yellow); Urine Crystals Unidentified Few /HPF (None Seen); Urine Culture Reflex Order NOT NEEDED; Urine Glucose NEGATIVE (Negative); Urine Ketones NEGATIVE (Negative); Urine Microscopic Reflex YN ORDER UMIC; Urine Mucus Slight /HPF (None Seen); Urine Nitrite NEGATIVE (Negative); Urine Protein TRACE (Negative); Urine RBC <5 /HPF (None Seen); Urine Urobilinogen 1+ (Normal); Urine WBC <5 /HPF (<5); Urine pH 6.5 (5.0-7.0)
--- NOTE | 2024-04-06 04:35 | RAD REPORT ---
EXAM: CT Angiography Chest With Intravenous Contrast CLINICAL HISTORY: The patient is 88 years old and is Male; SOB TECHNIQUE: Axial computed tomographic angiography images of the chest with intravenous contrast. Sagittal and coronal reformatted images were created and reviewed. This CT exam was performed using one or more of the following dose reduction techniques: automated exposure control, adjustmen t of the mA and/or kV according to patient size, and/or use of iterative reconstruction technique. MIP reconstructed images were created and reviewed. COMPARISON: No relevant prior studies available. FINDINGS: Limitations: Evaluation limited by artifact. Pulmonary arteries: Unremarkable. No pulmonary embolism. Aorta: Scattered atherosclerotic vascular calcifications. No thoracic aortic aneurysm. Inferior vena cava: Reflux of contrast into the IVC and hepatic veins. Lungs: Unremarkable. No mass. No consolidation. Pleural space: Unremarkable. No significant effusion. No pneumothorax. Heart: Heart appears enlarged. No significant pericardial effusion. No evidence of RV dysfunction. Bones/joints: Old left rib fractures. No dislocation. Soft tissues: Linear metallic density in the right chest wall. Lymph nodes: Unremarkable. No enlarged lymph nodes. Liver: 3.4 cm cystic lesion in the right posterior liver. Gallbladder and bile ducts: Hyperdensity in the gallbladder which may be due to contrast. IMPRESSION: No acute finding in the chest. No evidence of pulmonary embolism. Electronically signed by: Kevin Sam MD 04/06/2024 04:28 AM T 8 Due to temporary technical issues with the PACS/[employer] reporting system, reports are being andre d by the in-house radiologist without review as a courtesy to ensure prompt reporting the interpreting radiologist is fully responsible for the content of the report. Transcribed Date/Time: 04/06/2024 4:34 AM
--- NOTE | 2024-04-06 04:37 | EDPHYS ---
Physician Documentation [facility] Name: Carter Jiang Age: 88 yrs Sex: Male : 1935 Arrival Date: 04/05/2024 Time: 22:27 Bed 7 Private MD: ED Physician Wali Mccallum HPI: 04/05 23:35 This 88 yrs old Male presents to ER via Wheelchair with complaints of Post cp Surgical Pain, Fever, Breathing Difficulty. 23:35 The patient has shortness of breath at rest. cp 23:35 Onset: The symptoms/episode began/occurred today. Duration: The symptoms are cp continuous. Associated signs and symptoms: Pertinent positives: chest pain, fever, left leg pain, Pertinent negatives: diaphoresis, dizziness, hemoptysis. Severity of symptoms: in the emergency department the symptoms are unchanged despite home interventions. 23:35 Patient with history of recent cardiac cath by DR Gonzalez. cp Historical: - Allergies: 23:04 No Known Allergies; jb4 - PMHx: 23:04 COPD; jb4 - PSHx: 23:04 prostate; cardiac cath; jb4 - Immunization history:: Adult Immunizations up to date, Flu vaccine is not up to date. - Infectious Disease History:: Denies. - Social history:: Smoking status: Patient denies any tobacco usage or history of. ROS: 23:40 Constitutional: Negative for body aches, fever, poor PO intake, cp 23:40 Eyes: Negative for injury, pain, redness, and discharge, cp 23:40 ENT: Negative for drainage from ear(s), ear pain, sore throat, difficulty swallowing, difficulty handling secretions, 23:40 Cardiovascular: Negative for chest pain, edema, palpitations, 23:40 Respiratory: Positive for shortness of breath, at rest. 23:40 Abdomen/GI: Negative for abdominal pain, vomiting, diarrhea, constipation, cp 23:40 MS/extremity: Positive for pain, of the left leg, Negative for injury or acute deformity, paresthesias, 23:40 Neuro: Negative for altered mental status, headache, 23:40 All other systems are negative, cp Exam: 23:45 ECG was reviewed by the Attending Physician. cp 23:47 Constitutional: The patient appears in no acute distress, alert, awake, cp non-diaphoretic, non-toxic, well developed, well nourished, uncomfortable, 23:47 Head/Face: Normocephalic, atraumatic. cp 23:47 Eyes: Periorbital structures: appear normal, Conjunctiva: normal, no exudate, no injection, Sclera: no appreciated abnormality, Lids and lashes: appear normal, bilaterally, 23:47 ENT: External ear(s): are unremarkable, Nose: is normal, Mouth: Lips: moist, Oral mucosa: moist, Posterior pharynx: Airway: no evidence of obstruction, patent, 23:47 Neck: ROM/movement: is normal, is supple, without pain, no range of motions limitations, 23:47 Chest/axilla: Inspection: normal, 23:47 Cardiovascular: Rate: normal, Rhythm: regular, Edema: is not appreciated, JVD: is not appreciated, 23:47 Respiratory: mild respiratory distress is noted, Respirations: labored breathing, tachypnea, Breath sounds: rhonchi, are not appreciated, stridor, is not appreciated, wheezing: that is mild, is heard diffusely, 23:47 Abdomen/GI: Inspection: abdomen appears normal, Palpation: abdomen is soft and non-tender, in all quadrants, 23:47 Back: pain, is absent, ROM is normal, 23:47 Skin: cellulitis, is not appreciated, ecchymosis noted right groin. 23:47 Neuro: Orientation: to person, place \T\ time. Mentation: is normal, Motor: moves all fours, no focal deficits, Vital Signs: 23:03 BP 147 / 74; Pulse 64; Resp 40; Temp 97.8(O); Pulse Ox 98% on R/A; Weight 71.21 kg (R); jb4 Height 5 ft. 3 in. ; Pain 0/10; 09 00:00 BP 155 / 72; Pulse 58; Resp 18; Pulse Ox 100% ; cp4 01:00 BP 155 / 67; Pulse 56; Resp 18; Pulse Ox 95% ; cp4 02:00 BP 157 / 66; Pulse 57; Resp 18; Pulse Ox 96% ; cp4 03:00 BP 139 / 55; Pulse 55; Resp 18; Pulse Ox 96% ; cp4 04:00 BP 136 / 58; Pulse 57; Resp 18; Pulse Ox 96% ; cp4 05:00 BP 131 / 56; Pulse 55; Resp 18; Pulse Ox 96% ; cp4 06:00 BP 136 / 93; Pulse 56; Resp 18; Pulse Ox 97% ; cp4 04/05 23:03 Body Mass Index 27.81 (71.21 kg, 160.02 cm) 4 04/05 23:03 Pain Scale: Adult jb4 MDM: 04/05 22:40 Patient medically screened. 04/06 04:45 Data reviewed: vital signs, nurses notes, lab test result(s), EKG, radiologic studies, cp CT scan, plain films, ultrasound, and as a result, I will admit patient. 04/05 23:35 Order name: Basic Metabolic Panel; Complete Time: 00:53 cp 04/06 00:53 Interpretation: Normal except: CL 109; GLUC 162; BUN 19; GFR 68. cp 04/05 23:35 Order name: CBC with Diff; Complete Time: 00:38 cp 04/06 00:39 Interpretation: Normal except: RBC 2.77; HGB 8.8; HCT 25.7; PLT 124; LYM% 14.5; MN% cp 12.4. 04/05 23:35 Order name: LFT's; Complete Time: 00:53 cp 04/05 23:35 Order name: Magnesium; Complete Time: 00:53 cp 04/05 23:35 Order name: NT PRO-BNP; Complete Time: 00:53 cp 04/05 23:35 Order name: PT-INR; Complete Time: 00:38 cp 04/05 23:35 Order name: Troponin HS; Complete Time: 00:53 cp 04/06 00:54 Interpretation: Abnormal: Troponin HS 67.2. cp 04/05 23:35 Order name: SARS RAPID; Complete Time: 00:38 cp 04/05 23:35 Order name: Influenza Screen (a \T\ B); Complete Time: 00:38 cp 04/05 23:35 Order name: Urinalysis w/ reflexes; Complete Time: 03:06 cp 04/06 03:06 Interpretation: Normal except: UPROT TRACE; UUROB 1+. cp 04/06 05:16 Order name: Urinalysis w/ reflexes EDMS 04/06 05:16 Order name: CBC with Automated Diff EDMS 04/06 05:16 Order name: CBC with Automated Diff EDMS 04/06 05:16 Order name: Comprehensive Metabolic Panel EDND 04/06 05:16 Order name: Comprehensive Metabolic Panel EDND 04/06 05:16 Order name: Troponin High Sensitivity EDND 04/06 05:16 Order name: Troponin High Sensitivity EDND 04/06 05:16 Order name: Troponin High Sensitivity EDND 04/06 05:16 Order name: Troponin High Sensitivity EDND 04/05 23:35 Order name: US Lower Extremity Arterial Bilateral cp 04/05 23:35 Order name: US Extremity Venous W Compression Seth cp 04/05 23:35 Order name: XRAY Chest (1 view) cp 04/06 00:54 Order name: CT Chest For PE Angio; Complete Time: 06:21 cp 04/05 23:35 Order name: EKG; Complete Time: 23:35 cp 04/06 05:16 Order name: CONS Physician Consult EDND 04/05 23:35 Order name: Cardiac monitoring; Complete Time: 23:35 cp 04/05 23:35 Order name: EKG - Nurse/Tech; Complete Time: 23:43 cp 04/05 23:35 Order name: IV Saline Lock; Complete Time: 23:55 cp 04/05 23:35 Order name: Labs collected and sent; Complete Time: 23:55 cp 04/05 23:35 Order name: O2 Per Protocol; Complete Time: 23:43 cp 04/05 23:35 Order name: O2 Sat Monitoring; Complete Time: 23:43 cp EC/20 23:45 Rate is 57 beats/min. Rhythm is regular. WV interval is normal. QRS interval is cp prolonged at 142 msec. QT interval is normal. T waves are Inverted in lead aVR. Interpreted by me. Reviewed by me. Administered Medications: 04/06 00:09 Drug: Albuterol Inhalation 2.5 mg Inhalation once Route: Inhalation; cp4 00:43 Follow up: Response: No adverse reaction cp4 00:10 Drug: Ipratropium Inhalation Aerosol 0.5 mg Inhalation once Route: Inhalation; cp4 00:43 Follow up: Response: No adverse reaction cp4 01:26 Drug: morphine IVP or IV 4 mg IVP once over 4 mins Route: IVP; Infused Over: 4 mins; cp4 Site: right antecubital; 01:26 Drug: Ondansetron IVP 4 mg IVP once; over 2 minutes Route: IVP; Site: right antecubital;cp4 Disposition Summary: 04/06/24 04:36 Hospitalization Ordered Notes: Hospitalization Status: Observation cp Location: Telemetry/MedSurg (observation) cp Condition: Stable cp Problem: new cp Symptoms: have improved cp Bed/Room Type: Standard cp Room Assignment: 224(04/06/24 05:45) [facility] Provider: Diana Sandoval(04/06/24 06:23) lila Diagnosis - Shortness of breath cp - Abnormal levels of other serum enzymes - ELEVATED TROPONIN lila Forms: - Medication Reconciliation Form cp - SBAR form cp - Leadership Thank You Letter cp Signatures: Dispatcher [employer] EDMS Wali Mccallum MD MD cha Page, Corey, PA PA cp Bryson, James, RN RN [email or web address] Bonny Curry 4 Celina Duffy [facility] Corrections: (The following items were deleted from the chart) 04/05 23:35 23:35 BASIC METABOLIC PANEL+C.LAB.BRZ ordered. EDMS EDMS 23:35 23:35 CBC+H.LAB.BRZ ordered. EDMS EDMS 23:35 23:35 HEPATIC FUNCTION+C.LAB.BRZ ordered. EDMS EDMS 23:35 23:35 MAGNESIUM+C.LAB.BRZ ordered. EDMS EDMS 23:36 23:35 PROBNP+C.LAB.BRZ ordered. EDMS EDMS 23:36 23:35 PROTIME (+INR)+COAG.LAB.BRZ ordered. EDMS EDMS 23:36 23:35 Troponin High Sensitivity+C.LAB.BRZ ordered. EDMS EDMS 23:36 23:35 SARS-COV-2 Antigen Rapid+I.LAB.BRZ ordered. EDMS EDMS 23:36 23:35 Influenza Screen (A \T\ B)+BA.LAB.BRZ ordered. EDMS EDMS 23:36 23:35 Urinalysis+U.LAB.BRZ ordered. EDMS EDMS 04/06 05:45 04:36 cp [facility] 06:23 04:36 Hira Rehman cp, cha
--- NOTE | 2024-04-06 04:37 | ER ---
Nurse's Notes [facility] Name: Carter Jiang Age: 88 yrs Sex: Male : 1935 Arrival Date: 04/05/2024 Time: 22:27 Bed 7 Private MD: Diagnosis: Shortness of breath;Abnormal levels of other serum enzymes-ELEVATED TROPONIN Presentation: 04/05 23:03 Chief complaint: Patient's son or daughter states: He has been short of breath since jb4 his cardiac cath. He has COPD and tonight his shortness of breath is worse. I was concerned about his cath site as well. Coronavirus screen: At this time, the client does not indicate any symptoms associated with coronavirus-19. Ebola Screen: No symptoms or risks identified at this time. Initial Sepsis Screen: Does the patient meet any 2 criteria? RR > 20 per min. Yes Does the patient have a suspected source of infection? No. Patient's initial sepsis screen is negative. Risk Assessment: Do you want to hurt yourself or someone else? Patient reports no desire to harm self or others. Onset of symptoms was April 05, 2024. Transition of care: patient was not received from another setting of care. 23:03 Method Of Arrival: Wheelchair jb4 23:03 Acuity: GRADY 2 jb4 Triage Assessment: 04/06 06:36 Respiratory: Onset: The symptoms/episode began/occurred yesterday, the patient has cp4 moderate shortness of breath. 06:36 Respiratory: Reports shortness of breath. cp4 Historical: - Allergies: 04/05 23:04 No Known Allergies; jb4 - PMHx: 23:04 COPD; jb4 - PSHx: 23:04 prostate; cardiac cath; jb4 - Immunization history:: Adult Immunizations up to date, Flu vaccine is not up to date. - Infectious Disease History:: Denies. - Social history:: Smoking status: Patient denies any tobacco usage or history of. Screenin:56 [facility] ED Fall Risk Assessment (Adult) History of falling in the last 3 months, cp4 including since admission No falls in past 3 months (0 pts) Confusion or Disorientation No (0 pts) Intoxicated or Sedated No (0 pts) Impaired Gait No (0 pts) Mobility Assist Device Used No (0 pt) Altered Elimination No (0 pt) Score/Fall Risk Level 0 - 2 = Low Risk Oriented to surroundings, Maintained a safe environment, Assessed \T\ reinforced patient's understanding of fall precautions, Hourly rounding (assess needs \T\ fall precautionary measures) done. Abuse screen: Denies threats or abuse. Nutritional screening: No deficits noted. Tuberculosis screening: No symptoms or risk factors identified. Assessment: 23:56 General: Appears uncomfortable, Behavior is calm, cooperative, appropriate for age. cp4 Pain: Denies pain. Neuro: Level of Consciousness is awake, alert, obeys commands, Oriented to person, place, time, situation. Cardiovascular: Rhythm is sinus bradycardia. Respiratory: Airway is patent Respiratory effort is even, unlabored, Breath sounds are clear bilaterally. GI: No signs and/or symptoms were reported involving the gastrointestinal system. : No signs and/or symptoms were reported regarding the genitourinary system. EENT: No signs and/or symptoms were reported regarding the EENT system. Derm: No signs and/or symptoms reported regarding the dermatologic system. Musculoskeletal: No signs and/or symptoms reported regarding the musculoskeletal system. 04/06 00:00 Reassessment: Patient appears in no apparent distress at this time. Patient and/or cp4 family updated on plan of care and expected duration. Pain level reassessed. Patient is alert, oriented x 3, equal unlabored respirations, skin warm/dry/pink. 01:00 Reassessment: Patient appears in no apparent distress at this time. Patient and/or cp4 family updated on plan of care and expected duration. Pain level reassessed. Patient is alert, oriented x 3, equal unlabored respirations, skin warm/dry/pink. 02:00 Reassessment: Patient appears in no apparent distress at this time. Patient and/or cp4 family updated on plan of care and expected duration. Pain level reassessed. Patient is alert, oriented x 3, equal unlabored respirations, skin warm/dry/pink. 03:00 Reassessment: Patient appears in no apparent distress at this time. Patient and/or cp4 family updated on plan of care and expected duration. Pain level reassessed. Patient is alert, oriented x 3, equal unlabored respirations, skin warm/dry/pink. 04:00 Reassessment: Patient appears in no apparent distress at this time. Patient and/or cp4 family updated on plan of care and expected duration. Pain level reassessed. Patient is alert, oriented x 3, equal unlabored respirations, skin warm/dry/pink. 05:00 Reassessment: Patient appears in no apparent distress at this time. Patient and/or cp4 family updated on plan of care and expected duration. Pain level reassessed. Patient is alert, oriented x 3, equal unlabored respirations, skin warm/dry/pink. 06:00 Reassessment: Patient appears in no apparent distress at this time. Patient and/or cp4 family updated on plan of care and expected duration. Pain level reassessed. Patient is alert, oriented x 3, equal unlabored respirations, skin warm/dry/pink. Vital Signs: 04/05 23:03 BP 147 / 74; Pulse 64; Resp 40; Temp 97.8(O); Pulse Ox 98% on R/A; Weight 71.21 kg (R); jb4 Height 5 ft. 3 in. ; Pain 0/10; 04/06 00:00 BP 155 / 72; Pulse 58; Resp 18; Pulse Ox 100% ; cp4 01:00 BP 155 / 67; Pulse 56; Resp 18; Pulse Ox 95% ; cp4 02:00 BP 157 / 66; Pulse 57; Resp 18; Pulse Ox 96% ; cp4 03:00 BP 139 / 55; Pulse 55; Resp 18; Pulse Ox 96% ; cp4 04:00 BP 136 / 58; Pulse 57; Resp 18; Pulse Ox 96% ; cp4 05:00 BP 131 / 56; Pulse 55; Resp 18; Pulse Ox 96% ; cp4 06:00 BP 136 / 93; Pulse 56; Resp 18; Pulse Ox 97% ; cp4 04/05 23:03 Body Mass Index 27.81 (71.21 kg, 160.02 cm) jb4 04/05 23:03 Pain Scale: Adult 4 ED Course: 04/05 22:30 Patient arrived in ED. mr 22:31 Wali De Anda PA is PHCP. cp 22:31 Wali Mccallum MD is Attending Physician. cp 23:04 Triage completed. jb4 23:04 Arm band placed on right wrist. jb4 23:35 Bonny Curry is Primary Nurse. cp4 23:55 Influenza Screen (a \T\ B) Sent. cp4 23:55 SARS RAPID Sent. cp4 23:55 Basic Metabolic Panel Sent. cp4 23:56 Placed in gown. Bed in low position. Call light in reach. Side rails up X 1. cp4 23:56 CBC with Diff Sent. cp4 23:56 LFT's Sent. cp4 23:56 Magnesium Sent. cp4 23:56 NT PRO-BNP Sent. cp4 23:56 PT-INR Sent. cp4 23:56 Troponin HS Sent. cp4 23:56 No provider procedures requiring assistance completed. Initial lab(s) drawn, by me, cp4 sent to lab. COVID swab sent to lab. Flu and/or RSV swab sent to lab. Inserted saline lock: 20 gauge in right antecubital area, using aseptic technique. Blood collected. Flushed with 10 mL NS. 04/06 00:01 XRAY Chest (1 view) In Process Unspecified. EDMS 01:53 US Lower Extremity Arterial Bilateral In Process Unspecified. EDMS 01:53 US Extremity Venous W Compression Seth In Process Unspecified. EDMS 02:35 CT Chest For PE Angio In Process Unspecified. EDMS 04:36 Hira Rehman MD is Hospitalizing Provider. cp 06:23 Diana Sandoval MD is Hospitalizing Provider. [facility] 06:36 Provided Education on: admission. cp4 06:36 Patient admitted, IV remains in place. cp4 Administered Medications: 00:09 Drug: Albuterol Inhalation 2.5 mg Inhalation once Route: Inhalation; cp4 00:43 Follow up: Response: No adverse reaction cp4 00:10 Drug: Ipratropium Inhalation Aerosol 0.5 mg Inhalation once Route: Inhalation; cp4 00:43 Follow up: Response: No adverse reaction cp4 01:26 Drug: morphine IVP or IV 4 mg IVP once over 4 mins Route: IVP; Infused Over: 4 mins; cp4 Site: right antecubital; 01:26 Drug: Ondansetron IVP 4 mg IVP once; over 2 minutes Route: IVP; Site: right antecubital;cp4 Medication: 04/05 23:56 VIS not applicable for this client. cp4 Outcome: 04/06 04:36 Decision to Hospitalize by Provider. cp 06:36 Admitted to Med/surg accompanied by tech, via stretcher, with chart, cp4 06:36 Condition: stable 06:36 Instructed on the need for admit, 06:37 Patient left the ED. cp4 Signatures: Dispatcher [employer] EDMS Wali Mccallum MD MD cha Rivera [facility] Marciano mr Wali De Anda PA PA cp Bryson, James, RN RN jb4 Bonny Curry cp4
--- NOTE | 2024-04-06 05:06 | RAD REPORT ---
EXAM: XR Chest, 1 View CLINICAL HISTORY: The patient is 88 years old and is Male; SOB TECHNIQUE: Frontal view of the chest. COMPARISON: No relevant prior studies available. FINDINGS: LUNGS: Unremarkable. No consolidation. PLEURAL SPACE: Unremarkable. No pneumothorax. HEART: Unremarkable. No cardiomegaly. MEDIASTINUM: Unremarkable. Normal mediastinal contour. BONES/JOINTS: Multilevel degenerative change of the spine is present. No acute fracture. SOFT TISSUES: Scattered calcifications within the soft tissues of axilla bilaterally is noted. VASCULATURE: Atherosclerosis of the aorta is present. UPPER ABDOMEN: Elevation of left hemidiaphragm is present. IMPRESSION: No acute cardiopulmonary process. Electronically signed by: Tamela Batista MD 04/06/2024 12:34 AM CDT RP Due to temporary technical issues with the PACS/[employer] reporting system, reports are being andre d by the in-house radiologist without review as a courtesy to ensure prompt reporting the interpreting radiologist is fully responsible for the content of the report. Transcribed Date/Time: 04/06/2024 5:05 AM
[2024-04-06] MEDS ORDERED: ACETAMINOPHEN 325 MG TABLET PO PRN (05:08)
[2024-04-06] MEDS ORDERED: ONDANSETRON 4 MG/2 ML VIAL IV PRN (05:08)
--- NOTE | 2024-04-06 06:01 | P.HP ---
Certification for Inpatient Patient admitted to: Observation With expected LOS: <2 Midnights Practitioner: I am a practitioner with admitting privileges, knowledge of patient current condition, hospital course, and medical plan of care. Services: Services provided to patient in accordance with Admission requirements found in Title 42 Section 412.3 of the Code of Federal Regulations Patient History Date of Service: 04/06/24 Reason for admission: Short of breath History of Present Illness: 80-year-old male with past medical history of COPD, CAD, status post recent heart cath, BPH, brought to ER with shortness of breath which has been progressively getting worse over the last few days. Denies any chest pain. No nausea vomiting or diarrhea. Allergies No Known Drug Allergies Allergy (Verified 02/12/24 09:46) Unknown No Known Allergies Allergy (Uncoded 04/02/17 23:18) Unknown Home Medications: Albuterol Inhaler [Ventolin Inhaler*] 1 puff IH Q4H PRN 04/11/13 Ascorbic Acid [Vitamin C*] 500 mg PO DAILY 04/11/13 Aspirin Enteric Coated [ASPIRIN 81 MG EC*] 81 mg PO DAILY 04/11/13 Cholecalciferol (Vitamin D3) [Vitamin D3] 1,000 unit PO DAILY 04/11/13 Fluticasone/Salmeterol [Advair 250/50 Diskus*] 1 puff IH DAILY 04/11/13 Ipratropium/Albuterol Sulfate [Iprat-Albut 0.5-3(2.5) mg/3 ml] 1 puff IH Q4H PRN 04/11/13 Mecobalamin [B-12] 500 mcg PO DAILY 04/11/13 Crockett-3 Fatty Acids [Fish Oil] 1,000 units PO DAILY 04/11/13 Tiotropium [Spiriva Handihaler*] 1 puff IH DAILY 04/11/13 Gabapentin 100 mg PO BID 07/02/15 Ciprofloxacin HCl [Cipro 500 MG Tablet] 500 mg PO BID #42 tablet 07/05/15 Pantoprazole Sodium 40 mg PO DAILY #30 tablet. 07/05/15 - Past Medical/Surgical History Diabetic: No -: copd BRONCHITIS AND EMPHYSEMA -: PROSTATE DISEASE -: prostate surgery - Social History Alcohol use: No CD- Drugs: No Caffeine use: Yes Physical Examination - Studies Laboratory Data (last 24 hrs) 04/05/24 04/05/24 04/05/24 23:50 23:50 23:50 WBC 6.80 Hgb 8.8 L Hct 25.7 L Plt Count 124 L PT 15.6 H INR 1.41 Sodium 141 Potassium 3.8 BUN 19 H Creatinine 1.05 Glucose 162 H Magnesium 2.4 Total Bilirubin 0.3 AST 18 ALT 15 L Alkaline Phosphatase 55 Microbiology Data (last 24 hrs): 04/05/24 23:50 Nasopharnyx Influenza Type A Antigen Screen - Final 04/05/24 23:50 Nasopharnyx Influenza Type B Antigen Screen - Final Assessment and Plan - Advance Directives Does patient have a Living Will: No Does patient have a Durable POA for Healthcare: No
[2024-04-06] MEDS: ENOXAPARIN 40 MG/0.4 ML SQ SCH (09:06)
[2024-04-06 09:09] VITALS: BMI 27.8
[2024-04-06] MEDS: CLOPIDOGREL 75 MG TABLET PO SCH (11:27)
[2024-04-06] MEDS: ASPIRIN EC 81 MG TAB PO SCH (11:27)
--- NOTE | 2024-04-06 12:14 | HP ---
Date of Admission: 04/06/2024 Chief Complaint: Shortness of breath. History Of Present Illness: This is an 88-year-old male patient who had cardiac cath done at our hospital on 02/13/2024, which showed minimal plaquing of his coronary arteries about 20% and left main RCA and he obviously did not require any intervention for that. Subsequently on 04/03/2024, he was taken to [facility] by our energy attorney for angioplasty with stent placement of his right leg and this was done through right groin. Last night, he was brought into our emergency room by family member because of shortness of breath complaint and after he was evaluated, he was admitted to the hospital. This morning when I saw him, he was lying in bed, not in distress. Denies any other complaints while he was resting. There was no family member with him at bedside when I saw him. Allergies: NO KNOWN ALLERGIES. Medications: Albuterol and Atrovent nebulizer treatment, aspirin 81 mg daily, clopidogrel 75 mg daily, atorvastatin 40 mg daily, finasteride 5 mg daily, take his Trelegy inhaler daily, jefry and ferrous sulfate. Review of Systems: Respiratory: As mentioned above. All other systems reviewed are negative. Past Medical History: Significant for COPD, benign prostatic hypertrophy, peripheral vascular disease, hypertension, hyperlipidemia. Past Surgical History: Significant for prostate surgery and recent angioplasty with stent placement in his leg on 04/01/2024. Family History: Not pertinent. Social History: Prior history of smoking, not at present time. Use of alcohol, negative. Physical Examination: Vital Signs: Upon admission, height 5 feet 3 inches, weight 157 pounds, temperature 97.6, pulse 56, respiratory rate 16, blood pressure 110/80, oxygen saturation 97% on room air. General: Awake, alert, oriented, not in distress. HEENT: Head atraumatic, normocephalic. Conjunctivae nonerythematous. Sclerae white. Mouth, no thrush or edema noted. Ears/Nose, no mass, lesion, discharge noted. Neck: Supple. No JVD, lymph nodes, bruit, thyromegaly noted. Lungs: Bilateral good equal air entry. Clear to auscultation. No rhonchi. No rales. Heart: Normal heart sounds, no murmur or gallop. Abdomen: Soft, bowel sounds normal. No guarding, rigidity, tenderness, mass, hepatosplenomegaly, distention, or bruit noted. Extremities: No leg edema. No calf tenderness. Skin: Right groin skin has bruising from recent angiogram procedure. No evidence of any infection, bleeding, or any other concern on exam. Lymphatics: No lymph node enlargement in neck, supraclavicular, infraclavicular region. Neuro: No focal neurological deficit. Chest: Unremarkable. External Genitalia: Deferred. Laboratory Data: White count 6.8, hemoglobin 8.8, platelets 124. The patient's hemoglobin was 13.5 on February 18, 2024 and 14.1 on February 12, 2024. His urinalysis is unremarkable. Covid-19 test negative. Chest x-ray, no acute cardiopulmonary changes. CT scan of the chest per PE protocol was negative for any pulmonary embolism or any other acute findings. It does show small area of cyst in the liver, which remains unchanged from prior imaging studies. His chemistry shows sodium 141, potassium 3.8, chloride 109, bicarb 27, BUN 19, creatinine 1.05, glucose 162. Liver function tests unremarkable. His first troponin 67.2, second troponin 77.4. ProBNP 406. Venous doppler of both leg was negative for DVT and arterial doppler of both leg shows moderate disease. Impression: 1. Acute exacerbation of chronic obstructive pulmonary disease. 2. Acute blood loss anemia. 3. Abnormal cardiac enzymes. 4. Coronary artery disease. 5. Benign prostatic hypertrophy. 6. Hypertension. 7. Hyperlipidemia. 8. Peripheral vascular disease. Plan: We will go ahead and admit the patient to hospital for further evaluation and management of this problem. The patient is appropriate for inpatient and is expected to spend 2 midnights in hospital. For his COPD exacerbation, we will go ahead and treat it with nebulizer treatment and we will not consider any steroid medication yet. I have requested respiratory therapist to perform 6 minutes walk test and see what his oxygen saturation is. Room air oxygen saturation at rest is 97%, but I am concerned that he might drop his oxygen saturation significantly low enough to cause this shortness of breath that he is having and if that is the case, we will see whether he needs home oxygen or not. For his acute blood loss anemia, we will monitor his hemoglobin with another blood work tomorrow morning. No need for any blood transfusion, but we will continue iron supplement that he is currently on at home. We will repeat blood work tomorrow and depending on that we will decide whether he needs any blood transfusion or not. For his coronary artery disease, no need for any further intervention. For peripheral vascular disease, he just had recent stent placed a few days ago. He is on aspirin and clopidogrel and we will continue those medications per order. For his hyperlipidemia, he is on atorvastatin 40 mg daily, which will be continued as well. Total time spent 80 minutes that includes review of current emergency room visit record, review of 2 prior hospital visit record, 1 from emergency room visit from 02/18/2024 and another one was visit record from 02/12/2024, when patient had cardiac cath procedure. I also reviewed my prior office visit record and performing today's evaluation and management. I will see him tomorrow for followup. YURI/DEMETRIA Voice ID: [id number]
--- NOTE | 2024-04-06 16:11 | RAD REPORT ---
EXAM: Extrem Venous W Compress Seth US Bilateral Lower Extremity Venous Duplex Doppler HISTORY: Pain COMPARISON: None TECHNIQUE: Grayscale, color Doppler, duplex Doppler, spectral Doppler images and analysis with compre ssion and augmentation of right and left lower extremity veins. FINDINGS: Right and Left common femoral, greater saphenous, femoral, deep (profunda) femoral, popliteal, musical instrument maker or repairer ior tibial veins unremarkable without evidence of clot. IMPRESSION: No sonographic evidence of right or left lower extremity DVT. Electronically signed by: Shahab Lincoln MD 04/06/2024 04:58 AM CDT RP Due to temporary technical issues with the PACS/[employer] reporting system, reports are being andre d by the in-house radiologist without review as a courtesy to ensure prompt reporting the interpreting radiologist is fully responsible for the content of the report. Transcribed Date/Time: 04/06/2024 4:11 PM
--- NOTE | 2024-04-06 16:29 | RAD REPORT ---
EXAMINATION: Lower Extremity Arterial Bilat CLINICAL INDICATION: Male, 88 years old. [facility] MAIN PAIN Bed Name: 7 TECHNIQUE: Arterial duplex ultrasound of the bilateral lower extremities, with real-time, duplex, and spectral flow Doppler evaluation. COMPARISON: 11/18/2023 FINDINGS: Brachial artery systolic pressure is symmetric bilaterally. Grayscale: Grayscale: Mild plaque. Right lower extremity: The right lower extremity arteries are patent, with monophasic waveforms throughout. Left lower extremity: The left lower extremity arteries are patent, with monophasic waveforms, with the exception of the le ft common femoral and proximal superficial femoral arteries show triphasic. SFA stent is patent. IMPRESSION: Moderate bilateral peripheral vascular disease worse on the right.
[2024-04-06] MEDS: METHYLPREDNISOLONE 125 MG INJ ONE (18:34)
[2024-04-06] MEDS: ALBUTEROL 2.5 MG/3 ML NEB SOL NEB PRN (18:35)
[2024-04-06] MEDS: IPRATROPIUM BROM 0.5MG/2.5ML NEB PRN (18:35)
[2024-04-06] MEDS: LORazepam 2 MG/ML VIAL ONE (18:59)
[2024-04-06] MEDS: NA CHLORIDE 0.9% 1,000 ML ONE (19:06)
--- NOTE | 2024-04-06 19:56 | RAD REPORT ---
EXAMINATION: ONE VIEW CHEST XR CLINICAL INDICATION: Male, 88 years old. [facility] MAIN Cough TECHNIQUE: Frontal chest projection is submitted. Examination is limited by patient positioning and t echnique. COMPARISON: 04/05/2024 FINDINGS: The lungs are well inflated and clear, apart from left midlung streaky atelectasis which is stable. S ome patient rotation limits evaluation. No pneumothorax or sizable effusion. The heart is normal in size. IMPRESSION: No acute intrathoracic abnormalities. No significant interval change.
[2024-04-06] MEDS: ATORVASTATIN 40 MG TAB PO SCH (21:00)
[2024-04-06] MEDS: CEFTRIAXONE 1,000 MG in NA CHLORIDE 0.9% 50 ML IVPB SCH (21:40)
[2024-04-06 21:54] LABS: Blood Gas Oxyhemoglobin 97.9 % (94-97); Blood O2 Saturation 99.7 % (92-98.5)
[2024-04-06 22:02] LABS: Blood Gas THB 7.4 g/dl (12-18)
[2024-04-06] MEDS: PANTOPRAZOLE INJ 80 MG in NA CHLORIDE 0.9% 250 ML IV SCH (22:12)
[2024-04-06 22:14] LABS: Hematocrit 24.3 % (39.6-49.0)
[2024-04-07] MEDS: METHYLPREDNISOLONE 125 MG INJ IV SCH (00:12)
[2024-04-07] MEDS: IPRATROPIUM BROM 0.5MG/2.5ML NEB SCH (01:49)
[2024-04-07] MEDS: ALBUTEROL 2.5 MG/3 ML NEB SOL NEB SCH (01:49)
[2024-04-07 06:30] LABS: Absolute Lymphocytes (CBC) 0.6 K/uL (0.7-4.9); Absolute Monocytes 0.1 K/uL (0.1-1.3); Absolute Neutrophil 7.3 K/uL (1.8-8.0); Hematocrit 22.5 % (39.6-49.0); Hemoglobin 7.5 g/dL (13.6-17.9); Lymphocytes % 7.2 % (15.3-44.8); MCH 31.7 pg (27.0-35.0); MCHC 33.5 g/dL (32.0-36.0); MCV 94.5 fL (80-100); MPV 9.6 fL (7.6-11.3); Monocytes % 1.4 % (3.3-12.3); Neutrophils % 91.4 % (41.7-73.7); Nucleated Red Blood Cells % 0.1 % (0-0); Platelets 158 thou/uL (152-406); RBC Red Blood Cell Count 2.39 M/uL (4.33-5.43); Red Cell Distribution Width 14.5 % (12.1-15.2)
[2024-04-07 06:38] LABS: Anion Gap 7.4 mEq/L (5.0-15.0); Potassium 4.4 mEq/L (3.5-5.1)
[2024-04-07 06:55] LABS: Blood Morphology Comment NOTED (NOT SEEN); Differential Total Cells Count 100; Hypochromasia 1+; Lymphocytes 5 % (15-42); Monocytes 4 % (0-10); Platelet Estimate ADEQ; Polychromasia 1+; Segmented Neutrophils 94 % (40-80)
[2024-04-07 07:02] LABS: Specific Gravity 1.027 (1.005-1.030); Sqamous Epithelial <5 /HPF (None Seen); Urine Bacteria None Seen /HPF (<20); Urine Bilirubin NEGATIVE (Negative); Urine Blood Negative (Negative); Urine Clarity Clear (Clear); Urine Color Light-Yellow (Yellow); Urine Culture Reflex Order NOT NEEDED; Urine Glucose 2+ (Negative); Urine Ketones 1+ (Negative); Urine Microscopic Reflex YN ORDER UMIC; Urine Mucus Slight /HPF (None Seen); Urine Nitrite NEGATIVE (Negative); Urine Protein TRACE (Negative); Urine RBC <5 /HPF (None Seen); Urine Urobilinogen Normal (Normal); Urine WBC <5 /HPF (<5)
[2024-04-07] MEDS: POTASSIUM GLUCONATE 90 MG PO SCH (07:34)
[2024-04-07] MEDS: FERROUS SULFATE 325 MG TAB PO SCH (07:34)
[2024-04-07] MEDS: FINASTERIDE 5 MG TAB PO SCH (07:35)
[2024-04-07] MEDS: NA CHLORIDE 0.9% 100 ML ONE (08:11)
[2024-04-07] MEDS: D5 0.9 NS 1,000 ML IV SCH (10:46)
[2024-04-07] MEDS: INSULIN REGULAR (HUMAN) 100 UNIT/ML SQ SCH (11:02)
--- NOTE | 2024-04-07 12:57 | DS ---
Date of Discharge: 04/07/2024 Disposition: The patient will be transferred to [facility] for higher level of care for acute upper GI bleeding and acute blood loss anemia. Physical Examination: VITAL SIGNS: Reviewed this morning. HEENT: Unremarkable. Lungs: Clear to auscultation. Heart: Sounds normal. Abdomen: Soft, bowel sounds normal. No guarding, rigidity, tenderness, distention. Extremities: No leg edema. Laboratory Data: Upon admission, WBC 6.8, hemoglobin 8.8, platelets 124. Yesterday evening, hemoglo bin was 8, this morning WBC 8, hemoglobin 7.5, platelets 158. Arterial blood gas yesterday evening, pH 7.33, pCO2 33.3, pO2 440, oxygen saturation 99.7% on 100% FiO2. For chemistry, this morning, sodi um 141, potassium 4.4, chloride 111, bicarb 27, BUN 44, creatinine 1.17, glucose 194. Last troponin yesterday afternoon was 80.3, which was the fourth set, third set troponin was 81.4, second set tropo iwona 77.4, and the first set troponin was 67.2. Upon admission, chemistry shows sodium 141, potassium 3.8, chloride 109, bicarb 27, BUN 19, creatinine 1.05, glucose 162. Liver function tests unremarkab le. Hospital Course: This is an 88-year-old male patient who came into the emergency room with complaint s of shortness of breath. Please see dictated H and P for more information. The patient had a cardi ac cath procedure done at our hospital on 02/13/2024, showed only about 20% plaque buildup in coronar ies. No intervention was done at that time. He has significant peripheral vascular disease, so on 2023, auto hiker, Dr. Gonzalez, took him to [facility] in [place] and performed ang ioplasty with stent placement of right leg and he was started on aspirin and Plavix by auto hiker satya zhang he was taking at home and he came into our hospital emergency room with strong shortness of breat h complaint and after he was evaluated, he was admitted to the hospital. The patient has severe COPD . His oxygen saturation at rest was in mid 90 to high 90 range, but yesterday I had requested respir atory therapist to do 6-minute walk test and his oxygen saturation dropped down to 77% and subsequent ly the test was terminated. He was placed on oxygen per nasal cannula 2-3 L/minute, maintaining adeq uate oxygenation all day. Yesterday evening, all of a sudden rapid response was called because the p atient was having shortness of breath. Arterial blood gas was done at that time as outlined above. The patient was started on IV steroid, Solu-Medrol, and IV ceftriaxone and hemodynamically he was sta ble and his vital signs were stable at that time. Initially, we thought about sending him to ICU, bu t subsequently as his condition was noted to be stable, we decided to cancel the request for ICU joy sfer when I was communicating with the nurse. Subsequently, 2 black tarry stool bowel movements were reported yesterday evening after his condition was stable and at that time, H and H was ordered with instruction to start 2 units of PRBC blood transfusion if hemoglobin drops less than 8. The patient was also fighting BiPAP, which was placed on during rapid response time and when he was fighting BiP AP machine to keep it on, we decided to discontinue his BiPAP as he was only getting 30% oxygen per B iPAP and oxygen per nasal cannula 5 L/minute was ordered, which 30 minutes later on revealed oxygen s aturation of around 99%, so nurse was advised to wean off oxygen down to 3 L/minute as long as oxygen saturation remains more than 94%. This morning when I saw him, I found the patient in ICU, even [facility] ICU transfer order was canceled. Somehow night nurse ended up sending patient to ICU. The patie nt was hemodynamically stable in ICU. was present with him at bedside. He was not using his ox ygen and oxygen saturation on room air was 96%. The patient was not using any accessory muscles of r espiration. Denies any abdominal pain, nausea, vomiting. Yesterday, I did request consultation from [employer] grade social studies teacher to make arrangements for home oxygen for diagnosis of COPD and chronic respiratory prakash lure with hypoxia problem and the patient's was notified today that at home he should use oxygen all the time at nighttime and he should also use oxygen every time he ambulates even in the house. While he is resting during daytime awake and sitting, he may not need to use oxygen as long as his ox ygen saturation remains more than 90% and she was advised to monitor this at home. She verbalized th is understanding. She was also instructed that I would like to see him at office within matter of 2- 3 days after he comes home from [facility] with all the necessary paperwork and all medication bottles. I did communicate with the patient's regarding advance directives and the patient is full code as the decision made by the patient and family. The patient was started on IV Protonix drip yesterday evening after he was noted to have black tarry stool and yesterday morning Cardiology consultation was requested from Dr. Gonzalez for abnormal cardia c enzymes, but he has not had chance to evaluate the patient, so I did call him this morning, avril cated all the details with him, and he informed me to stop his aspirin and Plavix right now until fur ther GI workup is done. The patient did get his last dose of aspirin and Plavix this morning, but I have ordered both medication to be discontinued. I have also instructed the patient's that our plan is to send him to [facility] because we will have ink grinder, Dr. Lopez would be available tomorrow, but as I was told that due to technical difficulties in or endoscopy room, we were not abl e to perform any intervention. So at this time, we will not be able to keep him here with this acute upper GI bleed and acute blood-loss anemia problem, so transfer to [facility] in [facility] was initiated this morning and once the patient gets accepted, we will be able to transfer h im. The patient is medically stable for transfer. Final Diagnoses: 1.Acute exacerbation of chronic obstructive pulmonary disease. 2.Acute blood loss anemia. 3.Acute upper GI bleeding. 4.Abnormal cardiac enzymes, likely due to stress-induced ischemia. 5.Coronary artery disease. 6.Benign prostatic hypertrophy. 7.Hypertension. 8.Hyperlipidemia. 9.Peripheral vascular disease. Total time spent today 60 minutes. YURI/MODL Voice ID: [id number] Report ID: [id number]
[2024-04-08 05:46] LABS: Absolute Lymphocytes (CBC) 0.9 K/uL (0.7-4.9); Absolute Monocytes 1.1 K/uL (0.1-1.3); Absolute Neutrophil 12.5 K/uL (1.8-8.0); Hematocrit 25.8 % (39.6-49.0); Hemoglobin 8.6 g/dL (13.6-17.9); Lymphocytes % 6.5 % (15.3-44.8); MCH 30.9 pg (27.0-35.0); MCHC 33.2 g/dL (32.0-36.0); MCV 92.9 fL (80-100); MPV 9.6 fL (7.6-11.3); Monocytes % 7.5 % (3.3-12.3); Platelets 131 thou/uL (152-406); RBC Red Blood Cell Count 2.78 M/uL (4.33-5.43); Red Cell Distribution Width 14.2 % (12.1-15.2)
[2024-04-08 05:49] LABS: Anion Gap 8.8 mEq/L (5.0-15.0); Potassium 3.8 mEq/L (3.5-5.1)
--- NOTE | 2024-04-08 07:59 | PN ---
Date of Progress Note: 04/07/2024 Subjective: The patient was seen this morning for followup. When I saw him this morning, he was in ICU as he was transferred overnight from the floor. He was getting his first unit of PRBC blood joy sfusion this morning when I saw him in ICU. His was with him at bedside. Physical Examination: Vital signs: Reviewed. His last blood pressure 149/66, pulse 81, respiratory rate 18, oxygen satura tion 98%. When I saw him, he was on room air. Not using any oxygen and maintaining oxygen saturatio n of 96%. HEENT: Unremarkable. Lungs: Clear to auscultation. Heart: Sounds normal. Abdomen: Soft. Bowel sounds normal. No guarding, rigidity, tenderness, distention. Extremities: No leg edema. Laboratory Data: Sodium 141, potassium 4.4, chloride 111, bicarb 27, BUN 44, creatinine 1.17, glucos e 194. WBC 8, hemoglobin 7.5, platelets 158. Impression: 1.Acute blood loss anemia. 2.Acute upper gastrointestinal bleeding. 3.Acute exacerbation of chronic obstructive pulmonary disease. 4.Peripheral vascular disease, status post angioplasty and stent placement on right leg, done on . Plan: We will go ahead and transfuse 2 units of PRBC blood transfusion. Yesterday evening, while he was on the medical floor, Rapid Response was called because he was having shortness of breath. Hemo dynamically, he was stable at that time. He required BiPAP and subsequently we were able to wean off the BiPAP to nasal cannula oxygen, and started him on IV steroid and IV antibiotic for consideration of acute exacerbation of COPD. Subsequently, he had 2 black tarry stools indicating upper GI bleedi ng and now we are dealing with acute blood loss anemia with this low hemoglobin. The patient will ge t 2 units of PRBC blood transfusion. We do not have any pill packer available at our hospital until tomorrow, but I was told that we do not have any capability of doing any intervention because of some technical difficulty in endoscopy room, so with that we will not be able to keep him at our h ospital and he will need to be transferred to [place]. All these details were discussed with the pat judy and the patient's , and she understands they are agreeable for the transfer process. Code s tatus discussed. The patient is Full Code as per decision made by the patient and family. IV Proton ix drip was started yesterday. I did communicate with Dr. Gonzalez, grill prep cook, and he has recommend ed to discontinue aspirin and Plavix until we get further GI workup done and then consider to restart at appropriate time after EGD is done. With that, I will discontinue aspirin and Plavix; last dose of both of these medications was given this morning, so we will discontinue that now and I have commu nicated these details with the patient's as well that once he goes to [place], after he gets his endoscopy, she will need to ask those gastroenterologists and other physicians in [place] to see at what point he can restart aspirin and Plavix. YURI/MODL Voice ID: [id number] Report ID: [id number]
[2024-04-08] MEDS: METHYLPREDNISOLONE 40 MG INJ IV SCH (08:15)
[2024-04-08 08:31] VITALS: BP 119/55; TEMP 97.2
[2024-04-08 08:57] VITALS: O2SAT 95
[2024-04-08] MEDS ORDERED: URSODIOL 500 MG PO SCH (09:00)
--- NOTE | 2024-04-08 12:38 | EKG ---
Test Date: 2024-04-05 Test Time: 23:41:13 Hand [place]ter: [employer] MEASUREMENT RESULTS: Intervals: Rate: 57 OR: 106 QRSD: 142 QT: 450 QTc: 438 [place]: P: OR: 106 QRS: 209 T: 42 INTERPRETIVE STATEMENTS: Sinus bradycardia with short OR Right superior axis deviation Nonspecific intraventricular block Cannot rule out Anteroseptal infarct, age undetermined Abnormal ECG Compared to ECG 02/12/2024 10:14:30 Right superior axis now present Left-axis deviation no longer present Myocardial infarct finding still present Electronically Signed On 04-08-24 12:36:14 CDT by Karthikeyan Singh
--- NOTE | 2024-04-09 03:50 | DS ---
Date of Discharge: 04/08/2024 Disposition: Discharged to go to [facility] in [place] via ground ambulance in stable c ondition. Laboratory Data: Last blood work from this morning on the day of discharge, WBC 14.5, and this eleva juan WBC is due to IV steroid, hemoglobin 8.6, and platelets 131. Sodium 142, potassium 3.8, chloride 113, bicarb 24, BUN 28, creatinine 0.83, glucose 143. DICTATION ENDS HERE. YURI/MODL Voice ID: [id number] Report ID: [id number]
== END 2024-04-08 08:47 | disposition short-term general hospital (02) | DRG 191 ==
LOC: ER 22:27 → 2ND 04-06 05:08 → OBSVTOIN 04-06 08:51 → 3RD-ICU 04-06 23:49 → 4TH 04-07 14:09
PROVIDERS: ADMIT Internal Medicine; ATTEND Internal Medicine
PROC: 5A09457 Assistance with Respiratory Ventilation, 24-96 Consecutive Hours, Continuous Positive Airway Pressure (ICD-10-PCS; 2024-04-06)
PROC: 4A033R1 Measurement of Arterial Saturation, Peripheral, Percutaneous Approach (ICD-10-PCS; principal; 2024-04-07)
PROC: 30233N1 Transfusion of Nonautologous Red Blood Cells into Peripheral Vein, Percutaneous Approach (ICD-10-PCS; 2024-04-07)
DX: J44.1 Chronic obstructive pulmonary disease with (acute) exacerbation (principal); D62 Acute posthemorrhagic anemia; J96.11 Chronic respiratory failure with hypoxia; N40.0 Benign prostatic hyperplasia without lower urinary tract symptoms; E78.5 Hyperlipidemia, unspecified; I73.9 Peripheral vascular disease, unspecified; I10 Essential (primary) hypertension; I25.10 Atherosclerotic heart disease of native coronary artery without angina pectoris; R79.89 Other specified abnormal findings of blood chemistry; Z79.82 Long term (current) use of aspirin; Z11.52 Encounter for screening for COVID-19; Z99.81 Dependence on supplemental oxygen; Z79.02 Long term (current) use of antithrombotics/antiplatelets; Z79.899 Other long term (current) drug therapy
CPT/HCPCS: 36415; 36600; 71045; 71275; 80048; 80076; 81001; 82805; 82947; 83735; 83880; 84484; 85014; 85018; 85025; 85610; 86850; 86900; 86901; 86920; 87804; 87811; 93005; 93925; 93970; 94640; 94660; 94760; 96374; 96375; 99285; G0378; J0696; J1650; J2405; J2470; J2919; J7030; J7042; J7050; J7613; J7644; P9016; Q9967